=== PATIENT | female | born 1980 | race Caucasian/White ===

== ENCOUNTER 2023-02-13 10:09 | Outpatient (OUT) | payer OTHER, SELFPAY ==
[2023-02-13 10:43] LABS: Basophils Percent Auto 0.4 % (0.2-2.0); Eosinophils Absolute Auto 0.2 10^3/uL (0.0-0.7); Eosinophils Percent Auto 2.4 % (0.9-7.0); Hematocrit 37.6 % (36.0-48.0); Hemoglobin 11.4 g/dL (12.0-16.0); Immature Granulocytes Abs Auto 0.02 10^3/uL (0.00-0.03); Immature Granulocytes Pct Auto 0.3 % (0.0-0.5); Lymphocytes Absolute Auto 2.1 10^3/uL (1.2-3.8); Lymphocytes Percent Auto 29.7 % (20.5-60.0); Mean Corpuscular HGB Conc 30.3 g/dL (29.9-35.2); Mean Corpuscular Hemoglobin 24.4 pg (26.7-34.0); Mean Corpuscular Volume 80.3 fL (81.0-99.0); Mean Platelet Volume 9.8 fL (9.5-13.5); Monocytes Absolute Auto 0.8 10^3/uL (0.3-0.8); Monocytes Percent Auto 10.7 % (1.7-12.0); Neutrophils Absolute Auto 4.1 10^3/uL (1.4-6.5); Neutrophils Percent Auto 56.5 % (43.0-75.0); Platelet Count 295 10^3/uL (150-450); Red Blood Count 4.68 10^6/uL (4.20-5.40); Red Cell Distribution Width 15.3 % (11.0-15.0); White Blood Count 7.2 10^3/uL (4.0-11.0)
[2023-02-13 12:03] LABS: Alanine Aminotransferase 50 U/L (14-59); Albumin Level 4.1 g/dL (3.4-5.0); Alkaline Phosphatase 76 U/L (46-116); Anion Gap 13.9; Aspartate Amino Transferase 25 U/L (15-37); BUN Creatinine Ratio 14.6; Bilirubin Total 0.4 mg/dL (0.2-1.0); Carbon Dioxide 25.9 mmol/L (21.0-32.0); Chloride 104 mmol/L (98-107); Chol HDL Ratio 3.4; Cholesterol 230 mg/dL (<=200); Estimated GFR (African America >60 (>=60); Estimated GFR (Non-African Ame >60 (>=60); Free T3 2.72 pg/mL (2.18-3.98); Glucose 76 mg/dL (74-106); HDL Cholesterol 67 mg/dL (40-60); Potassium 3.8 mmol/L (3.5-5.1); Sodium 140 mmol/L (136-145); Total Protein 8.1 g/dL (6.4-8.2); Triglycerides 62 mg/dL (<=150); VLDL CHOLESTEROL 12.4 mg/dL
[2023-02-13 12:15] LABS: Estimated Average Glucose 94 mg/dL; Glycohemoglobin A1C 4.9 % (4.5-6.2)
[2023-02-14 05:07] LABS: Rheumatoid Factor (RF) <10.0 IU/mL (<14.0)
== END 2023-02-13 10:10 | disposition home or self-care (01) ==
LOC: LAB 10:14
PROVIDERS: PCP Family Medicine; Visit Provider Family Medicine
DX: Z00.00 Encounter for general adult medical examination without abnormal findings (principal)
CPT/HCPCS: 36415; 80053; 80061; 82306; 83036; 83525; 83540; 84436; 84443; 84481; 85025; 86430; 86431

== ENCOUNTER 2024-12-31 08:51 | Outpatient (OUT) | payer OTHER, SELFPAY ==
--- OUTSIDE RECORDS SUMMARY | 2024-12-31 08:57 | XMS_ITS | CCD ---
Author Organization [facility] CliniSyal Care Team Providers Care Meat Service Team Member Name Role Phone Vida Arita Primary Care Provider SANTOS TOMPKINS Consulting Unavailable SANTOS TOMPKINS Attending Unavailable SANTOS TOMPKINS Admitting Unavailable Vida Arita MD Primary Care Provider Vida Arita MD Primary Care Provider Vida Arita MD Primary Care Provider Lily Brush Unavailable PADMINI BANDA Referring Unavailable VIDA ARITA Primary Care Unavailable BEREKET Brush Attending Provider MD Vida Arita Primary Care Provider MD Padmini Banda Attending Provider MD Vida Arita Attending Provider MD Vida Arita Referring Provider MD Vida Arita Primary Care Provider MD Padmini Banda Attending Provider MD Vida Arita Attending Provider MD Vida Arita Referring Provider Vida Arita MD Primary Care Provider Vida Arita Primary Care Unavailable Padmini Banda Attending Unavailable Padmini Banda Admitting Unavailable VIDA ARITA Primary Care Unavailable HORACIO LOONEY Referring Unavailable BLESSING BLUE Referring Unavailable VIDA ARITA Primary Care Unavailable VIDA ARITA Referring Unavailable VIDA ARITA Primary Care Unavailable VIDA ARITA Primary Care Unavailable PADMINI BANDA Referring Unavailable Allergies Allergy Classification Reported Allergen(s) Allergy Type Date of Onset Reaction(s) Facility (8 sources) Penicillins Drug allergy (disorder) 4 Dizziness or Vertigo, Hives [facility] (1 source) Shellfish Drug allergy (disorder) 4 [facility] (9 sources) Shellfish Propensity to adverse reactions to drug 7 [employer] Work Phone: (5 sources) Penicillins Propensity to adverse reactions to drug 7 Dizziness or Vertigo, Hives [facility] (2 sources) Penicillin Drug Allergy dizziness [facility] Other (4 sources) Iodine; Translations: [iodine] Drug Allergy 4 Rash [facility] (1 source) Penicillins Drug allergy (disorder) [address] [place] [address] Repository Medications Current Medications Medication Drug Class(es) Dates Sig (Normalized) Sig (Original) ciprofloxacin 500 mg oral tablet (2 sources) Quinolone Antimicrobial take 1 tablet by mouth every twelve hours Cipro 500 MG 1 tablet Orally every 12 hrs Active levonorgestrel 0.818874 mg/hr intrauterine system (3 sources) Progestin, Progestin-containi ng Intrauterine Device Start: 04-15-2022 levonorgestrel (MIRENA) IUD 52 mg 1 each minocycline 100 mg oral capsule (3 sources) Tetracycline-class Drug Start: 04-04-2023 minocycline (MINOCIN;DYNACIN) 100 MG capsule 04/04/2023 Active phenazopyridine hydrochloride 200 mg oral tablet (4 sources) Start: 11-08-2022 take 1 tablet by mouth three times daily after mealtime as needed Phenazopyridine HCl 200 MG 1 tablet after meals Orally Three times a day prn urinary symptoms for 3 days Oct, Active take 2 tablets by mouth every ei ght hours AZO Urinary Pain Relief 95 MG 2 tablets after meals Orally Three times a day Active predniSONE 10 mg oral tablet (2 sources) take 1 tablet by mouth once daily predniSONE (DELTASONE) 10 MG tablet Take 1 tablet by mouth daily As directed Active spironolactone 50 mg oral tablet (9 sources) Aldosterone Antagonist Start: 022 spironolactone (ALDACTONE) 50 MG tablet 11/19/2021 Active sulfamethoxazole 800 mg / trimethoprim 160 mg oral tablet (2 sources) Dihydrofolate Reductase Inhibitor Antibacterial, Sulfonamide Antimicrobial Start: 023 take 1 tablet by mouth every twelve hours Sulfamethoxazole-Trim ethoprim 800-160 MG 1 tablet Orally Twice a day for 5 days Oct, Active Completed/Discontinued Medications Medication Drug Class(es) Dates Sig (Normalized) Sig (Original) gadoteridol (PROHANCE) injection 13 mL (1 source) Start: 08-05-2024 End: 08-05-2024 take 1 dose intravenously once 13 mL, IntraVENous, IMG ONCE PRN, 1 dose, Starting on Thu08/05/24 at 1108, Until Thu08/05/24 at 1109, Other Problems Active Problems Problem Classification Problem Date Documented Da te Episodic/Chronic Genitourinary symptoms and ill-defined conditions (1 source) Dysuria Episodic Other ear and sense organ disorders (3 sources) Sudden idiopathic hearing loss; Translations: [Sudden idiopathic hearing loss, right ear] 08-05-2024 Episodic Other ear and sense organ disorders (1 source) Sudden idiopathic hearing loss, right ear; Translations: [Sudden idiopathic hearing loss, right ear] Onset: 08-05-2024 Episodic Other female genital disorders (7 sources) Abnormal uterine bleeding; Translations: [Abnormal uterine and vaginal bleeding, unspecified] Onset: 03-05-2022 Chronic Other screening for suspected conditions (not mental disorders or infectious disease) (4 sources) Patient encounter status; Translations: [Encounter for screening mammogram for malignant neoplasm of breast] Onset: 09-29-2024 Episodic Other upper respiratory infections (1 source) Acute sinusitis, unspecified; Translations: [ACUTE SINUSITIS UNSPECIFIED] Onset: 06-17-2021 Episodic Unclassified (3 sources) CONTACT W/AND (SUSP) EXPOS COVID-19; Translations: [CONTACT W/AND (SUSP) EXPOS COVID-19] Onset: 06-17-2021 Urinary tract infections (1 source) Urinary tract infection, site not specified Episodic Past or Other Problems Problem Classification Problem Date Documented Date Episodic/Chronic Contraceptive and procreative management (3 sources) Intrauterine contraceptive device in situ; Translations: [Presence of (intrauterine) contraceptive device] Onset: 05-28-2022 05-28-2022 Episodic Nonmalignant breast conditions (5 sources) Breast lump; Translations: [Unspecified lump in the right breast, unspecified quadrant] Onset: 07-10-2023 07-10-2023 Episodic Unclassified (1 source) CONTACT W/AND (SUSP) EXPOS COVID-19; Translations: [CONTACT W/AND (SUSP) EXPOS COVID-19] Onset: 06-13-2021 Results Test Name Value Interpretation Reference Range Facility [facility] DIGITAL SCREEN ADRYAN Silvestre 10-04-2024 [facility] DIGITAL SCREEN BILATERAL EXAMINATION: SCREENING DIGITAL BILATERAL MAMMOGRAM WITH TOMOSYNTHESIS, 09/29/2024 TECHNIQUE: Screening mammography was performed with tomosynthesis including MLO and CC views of the bilateral breasts. Computer aided detection was used for the interpretation of this exam. COMPARISON: Multiple prior studies with the most recent bilateral mammogram dated 05/14/2023. HISTORY: Screening. Annual mammogram. FINDINGS: The breasts are extremely dense, which lowers the sensitivity of mammography. Right breast: No evidence of suspicious clusters of microcalcifications, dominant mass or architectural distortion. Left breast: No evidence of suspicious clusters of microcalcifications, dominant mass or architectural distortion. IMPRESSION: No mammographic evidence of malignancy. BI-RADS 2 BIRADS: BIRADS - CATEGORY 2 Benign Findings. Normal interval follow-up is recommended in 12 months. OVERALL ASSESSMENT - BENIGN A letter of notification will be sent to the patient regarding the results. [employer] recommends annual mammograms for women 40 years and older. Performing Facility: [facility] [place] [address] Interpreted by: Mallika Torres MD Signed by: Mallika Torres MD 10/04/24 Final result Normal [facility] MRI BRAIN W WO CONTRASTon MRI BRAIN W WO CONTRAST EXAMINATION: MRI OF THE INTERNAL AUDITORY CANALS WITH AND WITHOUT CONTRAST; MRI OF THE BRAIN WITHOUT AND WITH CONTRAST 08/05/2024 11:07 am TECHNIQUE: Multiplanar multisequence MRI of the internal auditory canals was performed with and without the administration of intravenous contrast.; Multiplanar multisequence MRI of the head/brain was performed without and with the administration of intravenous contrast. COMPARISON: None. HISTORY: ORDERING SYSTEM PROVIDED HISTORY: 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, unspecified hearing status on contralateral side TECHNOLOGIST PROVIDED HISTORY: STAT Creatinine as needed:->No FINDINGS: INTERNAL AUDITORY CANALS: No mass or abnormal enhancement within the cerebellopontine angle cisterns or internal auditory canals. No abnormal enhancement seen along of the facial or vestibulocochlear nerves. The inner ear structures appear unremarkable. The middle ear cavities are clear. The cisternal segments of the trigeminal nerves appear unremarkable. INTRACRANIAL STRUCTURES/VENTRICLES : There is no acute infarct. No mass effect or midline shift. No evidence of an acute intracranial hemorrhage. No abnormal extra-axial fluid collection. The ventricles and sulci are normal in size and configuration. The sellar/suprasellar regions appear unremarkable. The normal signal voids within the major intracranial vessels appear maintained. No abnormal focus of enhancement is seen within the brain. ORBITS: The visualized portion of the orbits demonstrate no acute abnormality. SINUSES: The visualized paranasal sinuses and mastoid air cells are well aerated. BONES/SOFT TISSUES: The bone marrow signal intensity appears normal. The soft tissues demonstrate no acute abnormality. IMPRESSION: 1. No acute intracranial abnormality. No acute infarct. 2. No abnormality seen within the cerebellopontine angle cisterns or internal auditory canals. Interpreted by: Ricky Chester MD Signed by: Ricky Chester MD 08/09/24 Final result Normal [facility] MRI IAC POSTERIOR FOSSA W WO CONTRASTon 08-09-2024 MRI IAC POSTERIOR FOSSA W WO CONTRAST EXAMINATION: MRI OF THE INTERNAL AUDITORY CANALS WITH AND WITHOUT CONTRAST; MRI OF THE BRAIN WITHOUT AND WITH CONTRAST 08/05/2024 11:07 am TECHNIQUE: Multiplanar multisequence MRI of the internal auditory canals was performed with and without the administration of intravenous contrast.; Multiplanar multisequence MRI of the head/brain was performed without and with the administration of intravenous contrast. COMPARISON: None. HISTORY: ORDERING SYSTEM PROVIDED HISTORY: 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, unspecified hearing status on contralateral side TECHNOLOGIST PROVIDED HISTORY: STAT Creatinine as needed:->No FINDINGS: INTERNAL AUDITORY CANALS: No mass or abnormal enhancement within the cerebellopontine angle cisterns or internal auditory canals. No abnormal enhancement seen along of the facial or vestibulocochlear nerves. The inner ear structures appear unremarkable. The middle ear cavities are clear. The cisternal segments of the trigeminal nerves appear unremarkable. INTRACRANIAL STRUCTURES/VENTRICLES : There is no acute infarct. No mass effect or midline shift. No evidence of an acute intracranial hemorrhage. No abnormal extra-axial fluid collection. The ventricles and sulci are normal in size and configuration. The sellar/suprasellar regions appear unremarkable. The normal signal voids within the major intracranial vessels appear maintained. No abnormal focus of enhancement is seen within the brain. ORBITS: The visualized portion of the orbits demonstrate no acute abnormality. SINUSES: The visualized paranasal sinuses and mastoid air cells are well aerated. BONES/SOFT TISSUES: The bone marrow signal intensity appears normal. The soft tissues demonstrate no acute abnormality. IMPRESSION: 1. No acute intracranial abnormality. No acute infarct. 2. No abnormality seen within the cerebellopontine angle cisterns or internal auditory canals. Interpreted by: Ricky Chester MD Signed by: Ricky Chester MD 08/09/24 Final result Normal [facility] Nicotine, Urineon 08-04-2024 3 [place] Cotinine, Ur <[address] [facility] Comment on above: Performed By: #### A NICTU #### [facility] [address] [place] [address] Centerpuncher: Kwaku Kaur MD Anabasine, Urine <5 Normal [facility] Comment on above: Performed By: #### A NICTU #### [facility] [address] [place] [address] Centerpuncher: Kwaku Kaur MD Cotinine, Urine <15 Normal [facility] Comment on above: Performed By: #### A NICTU #### [facility] [address] [place] [address] Centerpuncher: Kwaku Kaur MD Nicotine, Urine <15 Normal [facility] Comment on above: Result Comment: (NOT E) INTERPRETIVE INFORMATION: Nicotine and Metabolites, Urine, Quantitative Methodology: Quantitative Liquid Chromatography-Tandem Mass Spectrometry Positive cutoff: Nicotine 15 ng/mL Cotinine 15 ng/mL [id number] 50 ng/mL Anabasine 5 ng/mL For medical purposes only; not valid for forensic use. This test is designed to evaluate recent use of nicotine-containing products. Passive and active exposure cannot be discriminated definitively, although a cutoff of 100 ng/mL cotinine is frequently used for surgery qualification purposes. For smoking cessation programs or compliance testing, the absence of expected drug(s) and/or drug metabolite(s) may indicate non-compliance, inappropriate timing of specimen collection relative to drug administration, poor drug absorption, diluted/adulterated urine, or limitations of testing. The concentration value must be greater than or equal to the cutoff to be reported as positive. Anabasine is included as a biomarker of tobacco use, versus nicotine replacement. Interpretive questions should be directed to the laboratory. This test was developed and its performance characteristics determined by [facility]. It has not been cleared or approved by the [place] Food and Drug Administration. This test was performed in a CLIA certified laboratory and is intended for clinical purposes. Performed By: [facility] [address] [place] [id number] Selling Specialist: Wil Enriquez MD, PhD CLIA Number: [id number] Performed By: #### A NICTU #### [address] [address] Centerpuncher: Kwaku Kaur MD CBC with Auto Differentialon 02-26-2024 Basophils (Bld) [#/Vol] 0.03 10*3/uL [facility] Basophils/100 WBC (Bld) 0 % 0 - 2 % [facility] Eosinophils (Bld) [#/Vol] 0.07 10*3/uL [facility] Eosinophils/100 WBC (Bld) 1 % 1 - 4 % [facility] Erythrocyte distribution width (RBC) [Ratio] 14.0 % 11.8 - 14.4 % [facility] Hematocrit (Bld) [Volume fraction] 45.1 % 36.3 - 47.1 % [facility] Hemoglobin (Bld) [Mass/Vol] 14.3 g/dL 11.9 - 15.1 g/dL [facility] Immature granulocytes (Bld) [#/Vol] 0.03 10*3/uL [facility] Immature granulocytes/100 WBC (Bld) 0 % 0 [facility] Interpretation and review of laboratory results Abnormal [facility] Lymphocytes/100 WBC (Bld) 19 % Low 24 - 43 % [facility] Lymphocytes/100 WBC (Bld) 1.26 % [facility] MCH (RBC) [Entitic mass] 28.3 pg 25.2 - 33.5 pg [facility] MCHC (RBC) [Mass/Vol] 31.7 g/dL 28.4 - 34.8 g/dL [facility] MCV (RBC) [Entitic vol] 89.3 fL 82.6 - 102.9 fL [facility] Monocytes/100 WBC (Bld) 12 % 3 - 12 % [facility] Monocytes/100 WBC (Bld) 0.80 % [facility] Neutrophils/100 WBC (Bld) 68 % High 36 - 65 % [facility] Nucleated RBC/100 WBC (Bld) [Ratio] 0.0 % 0.0 per 100 WBC [facility] Platelet mean volume (Bld) [Entitic vol] 10.8 fL 8.1 - 13.5 fL [facility] Platelets (Bld) [#/Vol] 342 10*3/uL [facility] RBC (Bld) [#/Vol] 5.05 10*6/uL 3.95 - 5.1 1 m/uL [facility] Segmented neutrophils/100 WBC (Bld) 4.61 % [facility] WBC other (Bld) [#/Vol] 6.8 [facility] CBC with Diffon 02-26-2024 Abs. Basophil 0.03 k/uL Normal 0.00-0.20 [facility] Comment on above: Performed By: #### T SH, MG, CP, CDP, GLYHGB, FE, LIPR, FT3, T4, VD25 #### [facility] [place] [address] Centerpuncher: Dmitry Tan MD Abs.Imm.Granulocyte 0.03 k/uL Normal 0.00-0.30 [facility] Comment on above: Performed By: #### T SH, MG, CP, CDP, GLYHGB, FE, LIPR, FT3, T4, VD25 #### [place] [address] Centerpuncher: Dmitry Tan MD Abs.Neutrophil (Seg) 4.61 k/uL Normal 1.50-8.10 [facility] Comment on above: Performed By: #### T SH, MG, CP, CDP, GLYHGB, FE, LIPR, FT3, T4, VD25 #### [place] [address] Centerpuncher: Dmitry Tan MD Basophils/100 WBC (Bld) 0 % Normal 0-2 [facility] Comment on above: Performed By: #### T SH, MG, CP, CDP, GLYHGB, FE, LIPR, FT3, T4, VD25 #### [place] [address] Centerpuncher: Dmitry Tan MD Eosinophils (Bld) [#/Vol] 0.07 10*3/uL Normal 0.00-0.44 [facility] Comment on above: Performed By: #### T SH, MG, CP, CDP, GLYHGB, FE, LIPR, FT3, T4, VD25 #### [place] [address] Centerpuncher: Dmitry Tan MD Eosinophils/100 WBC (Bld) 1 % Normal 1-4 [facility] Comment on above: Performed By: #### T SH, MG, CP, CDP, GLYHGB, FE, LIPR, FT3, T4, VD25 #### [place] [address] Centerpuncher: Dmitry Tan MD Erythrocyte distribution width (RBC) [Ratio] 14.0 % Normal 11.8-14.4 [facility] Comment on above: Performed By: #### T SH, MG, CP, CDP, GLYHGB, FE, LIPR, FT3, T4, VD25 #### [address] [address] Centerpuncher: Dmitry Tan MD Hematocrit (Bld) [Volume fraction] 45.1 % Normal 36.3-47.1 [facility] Comment on above: Performed By: #### T SH, MG, CP, CDP, GLYHGB, FE, LIPR, FT3, T4, VD25 #### [address] [address] Centerpuncher: Dmitry Tan MD Hemoglobin (Bld) [Mass/Vol] 14.3 g/dL Normal 11.9-15.1 [facility] Comment on above: Performed By: #### T SH, MG, CP, CDP, GLYHGB, FE, LIPR, FT3, T4, VD25 #### [address] [address] Centerpuncher: Dmitry Tan MD Immature granulocytes/100 WBC (Bld) 0 % Normal 0 [facility] Comment on above: Performed By: #### T SH, MG, CP, CDP, GLYHGB, FE, LIPR, FT3, T4, VD25 #### [place] [address] Centerpuncher: Dmitry Tan MD Lymphocytes (Bld) [#/Vol] 1.26 10*3/uL Normal 1.10-3.70 [facility] Comment on above: Performed By: #### T SH, MG, CP, CDP, GLYHGB, FE, LIPR, FT3, T4, VD25 #### [address] [address] Centerpuncher: Dmitry Tan MD Lymphocytes/100 WBC (Bld) 19 % Low 24-43 [facility] Comment on above: Performed By: #### T SH, MG, CP, CDP, GLYHGB, FE, LIPR, FT3, T4, VD25 #### [address] [address] Centerpuncher: Dmitry Tan MD MCH (RBC) [Entitic mass] 28.3 pg Normal 25.2-33.5 [facility] Comment on above: Performed By: #### T SH, MG, CP, CDP, GLYHGB, FE, LIPR, FT3, T4, VD25 #### [address] [address] Centerpuncher: Dmitry Tan MD MCHC (RBC) [Mass/Vol] 31.7 g/dL Normal 28.4-34.8 [facility] Comment on above: Performed By: #### T SH, MG, CP, CDP, GLYHGB, FE, LIPR, FT3, T4, VD25 #### [address] [address] Centerpuncher: Dmitry Tan MD MCV (RBC) [Entitic vol] 89.3 fL Normal 82.6-102.9 [facility] Comment on above: Performed By: #### T SH, MG, CP, CDP, GLYHGB, FE, LIPR, FT3, T4, VD25 #### [address] [address] Centerpuncher: Dmitry Tan MD Monocytes (Bld) [#/Vol] 0.80 10*3/uL Normal 0.10-1.20 [facility] Comment on above: Performed By: #### T SH, MG, CP, CDP, GLYHGB, FE, LIPR, FT3, T4, VD25 #### [address] [address] Centerpuncher: Dmitry Tan MD Monocytes/100 WBC (Bld) 12 % Normal 3-12 [facility] Comment on above: Performed By: #### T SH, MG, CP, CDP, GLYHGB, FE, LIPR, FT3, T4, VD25 #### [address] [address] Centerpuncher: Dmitry Tan MD Neutrophil (Seg) 68 % High 36-65 [facility] Comment on above: Performed By: #### T SH, MG, CP, CDP, GLYHGB, FE, LIPR, FT3, T4, VD25 #### [address] [address] Centerpuncher: Dmitry Tan MD NRBC Automated 0.0 per 100 WBC Normal 0.0 [facility] Comment on above: Performed By: #### T SH, MG, CP, CDP, GLYHGB, FE, LIPR, FT3, T4, VD25 #### [address] [address] Centerpuncher: Dmitry Tan MD Platelet mean volume (Bld) [Entitic vol] 10.8 fL Normal 8.1-13.5 [facility] Comment on above: Performed By: #### T SH, MG, CP, CDP, GLYHGB, FE, LIPR, FT3, T4, VD25 #### [address] [address] Centerpuncher: Dmitry Tan MD Platelets (Bld) [#/Vol] 342 10*3/uL Normal 138-453 [facility] Comment on above: Performed By: #### T SH, MG, CP, CDP, GLYHGB, FE, LIPR, FT3, T4, VD25 #### [address] [address] Centerpuncher: Dmitry Tan MD RBC (Bld) [#/Vol] 5.05 10*6/uL Normal 3.95-5.11 [facility] Comment on above: Performed By: #### T SH, MG, CP, CDP, GLYHGB, FE, LIPR, FT3, T4, VD25 #### [address] [address] Centerpuncher: Dmitry Tan MD WBC (Bld) [#/Vol] 6.8 10*3/uL Normal 3.5-11.3 [facility] Comment on above: Performed By: #### T SH, MG, CP, CDP, GLYHGB, FE, LIPR, FT3, T4, VD25 #### [address] [address] Centerpuncher: Dmitry Tan MD Comp Metabolic Profon 2023 Albumin [Mass/Vol] 4.9 g/dL Normal 3.5-5.2 [facility] Comment on above: Performed By: #### T SH, MG, CP, CDP, GLYHGB, FE, LIPR, FT3, T4, VD25 #### [address] [address] Centerpuncher: Dmitry Tan MD Albumin/Glob Ratio 1.5 Normal 1.0-2.5 [facility] Comment on above: Performed By: #### T SH, MG, CP, CDP, GLYHGB, FE, LIPR, FT3, T4, VD25 #### [address] [address] Centerpuncher: Dmitry Tan MD Alkaline Phos 79 U/L Normal 35-104 [facility] Comment on above: Performed By: #### T SH, MG, CP, CDP, GLYHGB, FE, LIPR, FT3, T4, VD25 #### [address] [address] Centerpuncher: Dmitry Tan MD ALT [Catalytic activity/Vol] 32 U/L Normal 10-35 [facility] Comment on above: Performed By: #### T SH, MG, CP, CDP, GLYHGB, FE, LIPR, FT3, T4, VD25 #### [address] [address] Centerpuncher: Dmitry Tan MD Anion gap [Moles/Vol] 13 mmol/L Normal 9-16 [facility] Comment on above: Performed By: #### T SH, MG, CP, CDP, GLYHGB, FE, LIPR, FT3, T4, VD25 #### [place] [address] Centerpuncher: Dmitry Tan MD AST [Catalytic activity/Vol] 26 U/L Normal 10-35 [facility] Comment on above: Performed By: #### T SH, MG, CP, CDP, GLYHGB, FE, LIPR, FT3, T4, VD25 #### [place] [address] Centerpuncher: Dmitry Tan MD Bilirubin [Mass/Vol] 0.7 mg/dL Normal 0.0-1.2 [facility] Comment on above: Performed By: #### T SH, MG, CP, CDP, GLYHGB, FE, LIPR, FT3, T4, VD25 #### [place] [address] Centerpuncher: Dmitry Tan MD Calcium [Mass/Vol] 10.5 mg/dL High 8.6-10.4 [facility] Comment on above: Performed By: #### T SH, MG, CP, CDP, GLYHGB, FE, LIPR, FT3, T4, VD25 #### [place] [address] Centerpuncher: Dmitry Tan MD Chloride [Moles/Vol] 101 mmol/L Normal 98-107 [facility] Comment on above: Performed By: #### T SH, MG, CP, CDP, GLYHGB, FE, LIPR, FT3, T4, VD25 #### [address] [address] Centerpuncher: Dmitry Tan MD CO2 [Moles/Vol] 23 mmol/L Normal 20-31 [facility] Comment on above: Performed By: #### T SH, MG, CP, CDP, GLYHGB, FE, LIPR, FT3, T4, VD25 #### [address] [address] Centerpuncher: Dmitry Tan MD Creatinine [Mass/Vol] 1.0 mg/dL High 0.6-0.9 [facility] Comment on above: Performed By: #### T SH, MG, CP, CDP, GLYHGB, FE, LIPR, FT3, T4, VD25 #### [address] [address] Centerpuncher: Dmitry Tan MD GFR/1.73 sq M.predicted among non-blacks MDRD (S/P/Bld) [Vol rate/Area] 72 mL/min/{1.73_m2} Normal >60 [facility] Comment on above: Result Comment: These results are not intended for use in patients <18 years of age. eGFR results are calculated without a race factor using the 2020 CKD-EPI equation. Careful clinical correlation is recommended, particularly when comparing to results calculated using previous equations. The CKD-EPI equation is less accurate in patients with extremes of muscle mass, extra-renal metabolism of creatine, excessive creatine ingestion, or following therapy that affects renal tubular secretion. Performed By: #### T SH, MG, CP, CDP, GLYHGB, FE, LIPR, FT3, T4, VD25 #### [address] [address] Centerpuncher: Dmitry Tan MD Glucose [Mass/Vol] 81 mg/dL Normal 74-99 [facility] Comment on above: Performed By: #### T SH, MG, CP, CDP, GLYHGB, FE, LIPR, FT3, T4, VD25 #### [address] [address] Centerpuncher: Dmitry Tan MD Potassium [Moles/Vol] 4.3 mmol/L Normal 3.7-5.3 [facility] Comment on above: Performed By: #### T SH, MG, CP, CDP, GLYHGB, FE, LIPR, FT3, T4, VD25 #### [address] [address] Centerpuncher: Dmitry Tan MD Protein [Mass/Vol] 8.1 g/dL Normal 6.6-8.7 [facility] Comment on above: Performed By: #### T SH, MG, CP, CDP, GLYHGB, FE, LIPR, FT3, T4, VD25 #### [address] [address] Centerpuncher: Dmitry Tan MD Sodium [Moles/Vol] 137 mmol/L Normal 136-145 [facility] Comment on above: Performed By: #### T SH, MG, CP, CDP, GLYHGB, FE, LIPR, FT3, T4, VD25 #### [address] [address] Centerpuncher: Dmitry Tan MD Urea nitrogen [Mass/Vol] 18 mg/dL Normal 6-20 [facility] Comment on above: Performed By: #### T SH, MG, CP, CDP, GLYHGB, FE, LIPR, FT3, T4, VD25 #### [facility] [email or web address] [address] [place] [address] Centerpuncher: Dmitry Tan MD Comprehensive Metabolic Pane [facility] 02-26-2024 Albumin [Mass/Vol] 4.9 g/dL 3.5 - 5.2 g/dL [facility] Albumin/Globulin [Mass ratio] 1.5 {ratio} 1.0 - 2.5 [facility] ALP [Catalytic activity/Vol] 79 U/L 35 - 104 U/L [facility] ALT [Catalytic activity/Vol] 32 U/L 10 - 35 U/L [facility] Anion gap [Moles/Vol] 13 mmol/L 9 - 16 mmol/L [facility] AST [Catalytic activity/Vol] 26 U/L 10 - 35 U/L [facility] Bilirubin [Mass/Vol] 0.7 mg/dL 0.0 - 1 .2 mg/dL [facility] Calcium [Mass/Vol] 10.5 mg/dL High 8.6 - 10. 4 mg/dL [facility] Chloride [Moles/Vol] 101 mmol/L 98 - 10 7 mmol/L [facility] CO2 [Moles/Vol] 23 mmol/L 20 - 31 mmol/L [facility] Creatinine [Mass/Vol] 1.0 mg/dL High 0.6 - 0.9 mg/dL [facility] Est, Glom Filt Rate 72 - PINF [facility] Comment on above: These results are not intended for use in patients <18 years of age. eGFR results are calculated without a race factor using the 2020 CKD-EPI equation. Careful clinical correlation is recommended, particularly when comparing to results calculated using previous equations. The CKD-EPI equation is less accurate in patients with extremes of muscle mass, extra-renal metabolism of creatine, excessive creatine ingestion, or following therapy that affects renal tubular secretion. Glucose [Mass/Vol] 81 mg/dL 74 - 99 mg/dL [facility] Potassium [Moles/Vol] 4.3 mmol/L 3.7 - 5.3 mmol/L [facility] Protein [Mass/Vol] 8.1 g/dL 6.6 - 8.7 g/dL [facility] Sodium [Moles/Vol] 137 mmol/L 136 - 145 mmol/L [facility] Urea nitrogen [Mass/Vol] 18 mg/dL 6 - 20 mg/dL [facility] Hemoglobin A1Con 02-26-2024 HbA1c (Bld) [Mass fraction] 4.5 % Normal 4.0-6.0 [facility] Comment on above: Performed By: #### T SH, MG, CP, CDP, GLYHGB, FE, LIPR, FT3, T4, VD25 #### [employer] [address] [place] [address] Centerpuncher: Dmitry Tan MD Average glucose Estimated from glycated hemoglobin (Bld) [Mass/Vol] 82 mg/dL [facility] Comment on above: The ADA and AACC rec ommend providing the estimated average glucose result to permit better patient understanding of their HBA1c result. [facility] Glucose [Mass/Vol] 82 mg/dL Normal [facility] Comment on above: Result Comment: The ADA and AACC recommend providing the estimated average glucose result to permit better patient understanding of their HBA1c result. Performed By: #### T SH, MG, CP, CDP, GLYHGB, FE, LIPR, FT3, T4, VD25 #### [employer] [address] [place] [address] [phone] Centerpuncher: Dmitry Tan MD Iron 02-26-2024 Iron [Mass/Vol] 69 ug/dL 37 - 145 ug/dL [facility] Iron [Mass/Vol] 69 ug/dL Normal 37-145 [facility] Comment on above: Performed By: #### T SH, MG, CP, CDP, GLYHGB, FE, LIPR, FT3, T4, VD25 #### [employer] [address] [place] [address] [phone] Centerpuncher: Dmitry Tan MD Lipid Panelon 02-26-2024 Cholesterol [Mass/Vol] 183 mg/dL 0 - 1 99 mg/dL [facility] Comment on above: Cholesterol Guidelines: <200 Desirable 200-240 Borderline >240 Undesirable Cholesterol in HDL [Mass/Vol] 51 mg/dL 40 - PINF mg/dL [facility] [employer] Comment on above: HDL Guidelines: <40 Undesirable 40-59 Borderline >59 Desirable Cholesterol in LDL [Mass/Vol] 114 mg/dL High 0 - 100 mg/dL [facility] [employer] Comment on above: LDL Guidelines: <100 Desirable 100-129 Near to/above Desirable 130-159 Borderline >159 Undesirable Direct (measured) LDL and calculated LDL are not interchangeable tests. Cholesterol in VLDL [Mass/Vol] 18 mg/dL 1 - 30 mg/dL [facility] Cholesterol.total/Chol esterol in HDL [Mass ratio] 3.6 {ratio} [facility] Triglyceride [Mass/Vol] 91 mg/dL NINF - 150 mg/dL [facility] Comment on above: Triglyceride Guidelines: <150 Desirable 150-199 Borderline 200-499 High >499 Very high Based on AHA Guidelines for fasting triglyceride, January 2012. Lipid Profileon 02-26-2024 Cholesterol [Mass/Vol] 183 mg/dL Normal 0-199 [facility] Comment on above: Result Comment: Cholesterol Guidelines: <200 Desirable 200-240 Borderline >240 Undesirable Performed By: #### T SH, MG, CP, CDP, GLYHGB, FE, LIPR, FT3, T4, VD25 #### [place] [id number] Centerpuncher: Dmitry Tan MD Cholesterol in HDL [Mass/Vol] 51 mg/dL Normal >40 [facility] Comment on above: Result Comment: HDL Guidelines: <40 Undesirable 40-59 Borderline >59 Desirable Performed By: #### T SH, MG, CP, CDP, GLYHGB, FE, LIPR, FT3, T4, VD25 #### [place] [id number] Centerpuncher: Dmitry Tan MD Cholesterol in LDL [Mass/Vol] 114 mg/dL High 0-100 [facility] Comment on above: Result Comment: LDL Guidelines: <100 Desirable 100-129 Near to/above Desirable 130-159 Borderline >159 Undesirable Direct (measured) LDL and calculated LDL are not interchangeable tests. Performed By: #### T SH, MG, CP, CDP, GLYHGB, FE, LIPR, FT3, T4, VD25 #### [place] [phone] Centerpuncher: Dmitry Tan MD Cholesterol in VLDL [Mass/Vol] 18 mg/dL Normal 1-30 [facility] Comment on above: Performed By: #### T SH, MG, CP, CDP, GLYHGB, FE, LIPR, FT3, T4, VD25 #### [facility] [address] [place] [address] [phone] Centerpuncher: Dmitry Tan MD Cholesterol.total/Chol esterol in HDL [Mass ratio] 3.6 {ratio} Normal [facility] Comment on above: Performed By: #### T SH, MG, CP, CDP, GLYHGB, FE, LIPR, FT3, T4, VD25 #### [facility] [address] [place] [address] [phone] Centerpuncher: Dmitry Tan MD Triglyceride [Mass/Vol] 91 mg/dL Normal <150 [facility] Comment on above: Result Comment: Triglyceride Guidelines: <150 Desirable 150-199 Borderline 200-499 High >499 Very high Based on AHA Guidelines for fasting triglyceride, January 2012. Performed By: #### T SH, MG, CP, CDP, GLYHGB, FE, LIPR, FT3, T4, VD25 #### [facility] [address] [place] [address] Centerpuncher: Dmitry Tan MD Magnesiumon 02-26-2024 Magnesium [Mass/Vol] 2.3 mg/dL 1.6 - 2 .6 mg/dL [facility] Magnesium [Mass/Vol] 2.3 mg/dL Normal 1.6-2.6 [facility] Comment on above: Performed By: #### T SH, MG, CP, CDP, GLYHGB, FE, LIPR, FT3, T4, VD25 ####[facility] [employer] [address] [place] [address] [phone] Lab Director: Dmitry Tan MD No Panel Informationon 02-25 Interpretation and review of laboratory results Abnormal [facility] T3, Freeon 02-26-2024 Free T3 [Mass/Vol] 2.90 pg/mL 2.00 - 4. 40 pg/mL [facility] Free T3 [Mass/Vol] 2.90 pg/mL Normal 2.00-4.40 [facility] Comment on above: Performed By: #### T SH, MG, CP, CDP, GLYHGB, FE, LIPR, FT3, T4, VD25 #### [employer] [address] [place], [place] [phone] Centerpuncher: Dmitry Tan MD T4on 02-26-2024 T4 [Mass/Vol] 9.6 ug/dL 4.5 - 11.7 ug/dL [facility] TSHon 02-26-2024 TSH Qn 1.35 m[IU]/L [facility] Thyroid Stim. Horm.on 2023 Thyroid Stim. Horm. 1.35 uIU/mL Normal 0.27-4.20 [facility] Comment on above: Performed By: #### T SH, MG, CP, CDP, GLYHGB, FE, LIPR, FT3, T4, VD25 ####[employer] [place], [place] [phone] Lab Director: Dmitry Tan MD Thyroxine T4on 02-26-2024 T4 [Mass/Vol] 9.6 ug/dL Normal 4.5-11.7 [facility] Comment on above: Performed By: #### T SH, MG, CP, CDP, GLYHGB, FE, LIPR, FT3, T4, VD25 ####[employer] [place], [place] [phone] Lab Director: Dmitry Tan MD Vitamin D 25 Hydroxyon 02-25 25-hydroxyvitamin D3 [Mass/Vol] 62.5 ng/mL 30.0 - 100.0 ng/mL [facility] Comment on above: Reference Range: Vitamin D status Range Deficiency <20 ng/mL Mild Deficiency 20-30 ng/mL Sufficiency 30-100 ng/mL Toxicity >100 ng/mL Vitamin D 25 OHon 02-26-2024 Vitamin D 25 OH 62.5 ng/mL Normal 30.0-100.0 [facility] Comment on above: Result Comment: Reference Range: Vitamin D status Range Deficiency <20 ng/mL Mild Deficiency 20-30 ng/mL Sufficiency 30-100 ng/mL Toxicity >100 ng/mL Performed By: #### T SH, MG, CP, CDP, GLYHGB, FE, LIPR, FT3, T4, VD25 ####[facility] [place] [address] Lab Director: Dmitry Tan MD [facility] 07-10-2023 L Specimen: Received: 07/10/23 Status: DEACON Re Num: [id number] Spec Type: Surgical Subm Dr: Dafne Cordero MD Tissues: A BREAST CORE NO CALCS (RT BREAST TISSUE) Procedures: HE/2, Gross/Micro L4 Age/ Patient Sex Location Account Attending Physician Tabitha Lemons 43/F [place] [id number] Padmini Banda MD SPEC NUM: [id number] RECD: 07/10/23 STATUS: DEACON [facility] NUM: [id number] GILMER: 07/10/[address]: Dafne Cordero MD ENTERED: 07/10/[address] [facility] [address]: Padmini Banda MD SPEC TYPE: Surgical DEPT: S ORDERED: HE/2, Gross/Micro L4 ORDERED: HE/2, Gross/Micro L4 Pathological Diagnosis Mass, Right breast, Excision: Mature Fibrofatty Tissue, suggestive of Lipoma. Clinical Information Right breast lesion 11?12:00, 10 cm from nipple Gross Description Received in formalin labeled with the patient's name, date of and right breast is a 2.5 x 1.8 x 0.3 cm aggregate of cores of fibrofatty breast tissue. Entirely submitted in one cassette labeled A1. Time of excision: 11:28 AM 07/10/2023, time in formalin: 11:31 AM 07/10/2023, time out of formalin: 6 PM 07/12/2023. Cold Ischemia and Fixation Time meets the requirements specified in the latest version of the ASCO/CAP guidelines: Yes. Cold Ischemic Time: 0.05 Formalin Fixation Time: [id number] -------- Specimen: [id number] Received: 07/10/23 Status: DEACON Hagen Num: [id number] Spec Type: Surgical Subm Dr: Dafne Cordero MD Tissues: A BREAST CORE NO CALCS (RT BREAST TISSUE) Procedures: /2, Diego/Katie L4 -------- Patient: Tabitha Lemons [id number] (Continued) -------- Specimen: [id number] Received: 07/10/23 (Continued) Signed (signature on file) Lyssa Thorne MD 07/13/23 1701 -------- Specimen: Received: 07/10/23 Status: DEACON Hagen Num: [id number] Spec Type: Surgical Subm Dr: Dafne Cordero MD Tissues: A BREAST CORE NO CALCS (RT BREAST TISSUE) Procedures: HE/Xenia, Diego/Katie L4 -------- Patient: CristoTabitha Rock [id number] (Continued) -------- Specimen: Received: 07/10/23 (Continued) CPT Codes 48619 -------- -------- Specimen: Received: 07/10/23 Status: DEACON Hagen Num: [id number] Spec Type: Surgical Subm Dr: Dafne Cordero MD Tissues: A BREAST CORE NO CALCS (RT BREAST TISSUE) Procedures: HE/2, Gross/Micro L4 -------- Patient: Tabitha Lemons [id number] (Continued) -------- Signed (signature on file) Lyssa Thorne MD 07/13/23 1701 Normal [facility] US breast ndl core biopsy RT on 07-10-2023 [place] [address] Ultrasound Report Signed with Katharina Patient: Tabitha Lemons MR#: [id number] : 1980 Acct:[id number] Age/Sex: 43 / F ADM Date: 07/10/23 Loc: [facility] Room: Type: [facility] Attending Dr: Padmini Banda MD Ordering Provider: Padmini Banda MD Date of Service: 07/10/23 US/US breast ndl core biopsy RT: RT BREAST MASS Copies to: Padmini Banda MD ADDENDUM 1 The patient's pathology results for the right breast biopsy show mature fibrofatty tissue suggesting lipoma. This is concordant with the imaging appearance. Impression dictated by: Dafne Cordero M.D.07/14/2023 9:01 AM Dictation Location: [place] [address] Addendum Dictated By: MD Dafne Cordero Addendum Signed By: 07/14/23900 Addendum Cosigned By: DD/ /06/900 TD/TT: 07/14/2306/06/900 RIGHT BREAST ULTRASOUND-GUIDED BIOPSY WITH VACUUM ASSISTANCE CLINICAL DATA: Isoechoic lump at the right axillary tail Patient's previous imaging from May 2023 was reviewed. The procedure was discussed with patient was obtained. Ultrasound survey at the axillary tail shows a superficial isoechoic nodular area at the site of palpable concern measuring just over 3 cm in size. Appearance is suggestive of a lipoma. Following sterile preparation and local anesthesia with lidocaine, a 12-gauge vacuum-assisted needle was advanced into the area under direct ultrasound visualization. Core tissue samples were obtained. Before the needle was removed, a biopsy marking clip was placed. During removal of the needle, a small amount of fluid was noted in the area suggesting bleeding. There was also some bleeding through the incision. Pressure was held for several minutes to achieve hemostasis. Patient did develop a hematoma at that site on follow-up ultrasound imaging measuring approximately 2.7 cm in greatest dimension. There were no other immediate complications. No postbiopsy mammogram was obtained. US/US breast ndl core biopsy RT IMPRESSION: STATUS POST ULTRASOUND-GUIDED SAMPLING OF A SUSPECTED RIGHT AXILLARY TAIL LIPOMA. POSTPROCEDURE HEMATOMA. Impression dictated by: Dafne Cordero M.D.07/10/2023 11:58 AM Dictation Location: [facility] Tech: Gaby Campbell Transcribed By: [facility] 07/10/23 1158 Dictated By: Dafne Cordero MD 07/10/23 1113 Signed By: 07/10/[address] [facility] Urinalysis - AUTOMATEDon Appearance (U) CLEAR [employer] Other Bilirubin Ql (U) Negative [employer] Other Color (U) LIGHT YELLOW [employer] Other Glucose Ql (U) Negative [employer] Other Hemoglobin Ql (U) TRACE-INTACT [employer] Other Ketones Ql (U) Negative [employer] Other Leukocyte esterase Test strip Ql (U) SMALL [employer] Other Nitrite Ql (U) Negative [employer] Other pH (U) 7.0 [pH] [employer] Other Protein Ql (U) Negative [employer] Other Specific gravity (U) [Rel density] 1.020 [employer] Other Urobilinogen (U) [Mass/Vol] 0.2 mg/dL [employer] Other Urinalysis - AUTOMATED No rt [employer] Other [facility] DIGITAL DIAGNOSTIC UNILATERAL RIGHTon 03-31-2022 Radiology Study observation (narrative) JAKE [employer] Work Phone: No Panel Informationon 03-31 Previously noted asymmetry in the retroareolar right breast is most likely related to dense fibroglandular tissue and summation artifact. No suspicious findings on diagnostic mammogram or limited right breast ultrasound. BI-RADS 2 BIRADS: BIRADS - CATEGORY 2 Benign Findings. Normal interval follow-up is recommended in 12 months. OVERALL ASSESSMENT - BENIGN A letter of notification will be sent to the patient regarding the results. The [employer] recommends annual mammograms for women 40 years [address] [facility] RIS CONSOLIDATED EXAMINATION: DIAGNOSTIC DIGITAL RIGHT BREAST MAMMOGRAM WITH TOMOSYNTHESIS; TARGETED ULTRASOUND OF THE RIGHT BREAST, 03/31/2022 2:49 pm TECHNIQUE: Diagnostic mammography of the right breast was performed with tomosynthesis. 2D standard and 3D tomosynthesis combination imaging performed through the right breast. Computer aided detection was utilized in the interpretation of this exam.; Targeted ultrasound of the right breast was performed. Views: CC spot compression view of the right breast. True lateral view of the right breast. 3D tomosynthesis was performed. COMPARISON: Baseline mammogram dated 02/14/2022. HISTORY: ORDERING SYSTEM PROVIDED HISTORY: Abnormality of right breast on screening mammogram TECHNOLOGIST PROVIDED HISTORY: Is the patient ?->No FINDINGS: Mammogram: Density: Extremely dense, which limits the sensitivity of mammography. The asymmetry in the retroareolar right breast partially dissipates on spot compression view. No discrete mass, suspicious architectural distortion, or calcification. Limited right breast ultrasound: Targeted ultrasound imaging was performed in the retroareolar right breast. There is extremely dense fibroglandular tissue. No solid or cystic mass. Unremarkable sonographic appearance of the right nipple. [facility] CONSOLIDATED No Panel InformationOrdered By: Michelle Groves on 03-31-2022 [employer] Phone: US BREAST LIMITED RIGHTon Radiology Study observation (narrative) [employer] Phone: [facility] DIGITAL SCREEN BILA TERALon 02-14-2022 1. Right breast: Small asymmetry in the retroareolar right breast, seen on CC view. Diagnostic mammogram and possible ultrasound are recommended. 2. Left breast: No mammographic findings of malignancy. This breast can continue to be followed with annual screening mammogram. BI-RADS 0 BIRADS: BIRADS - CATEGORY 0 Incomplete: Needs Additional Imaging Evaluation OVERALL ASSESSMENT - INCOMPLETE:NEED ADDITIONAL IMAGING EVALUATION. [facility] CONSOLIDATED EXAMINATION: SCREENING DIGITAL BILATERAL MAMMOGRAM WITH TOMOSYNTHESIS, 02/14/2022 TECHNIQUE: Screening mammography was performed with tomosynthesis including MLO and CC views of the bilateral breasts. Computer aided detection was used for the interpretation of this exam. COMPARISON: No prior. Baseline mammogram. HISTORY: Screening. FINDINGS: The breasts are extremely dense, which lowers the sensitivity of mammography. There is a small asymmetry in the retroareolar right breast, seen on CC view. No suspicious mass, architectural distortion, or calcification in the left breast. [facility] CONSOLIDATED Radiology Study observation (narrative) [employer] Phone: [facility] DIGITAL SCREEN BILA TERALOrdered By: Michelle Groves on 02-14-2022 [employer] Phone: Estradiolon 01-18-2022 Estradiol 53.5 pg/mL 27 - 314 pg/mL [employer] Comment on above: FEMALES: Normally menstruating Luteal phase 33-298 Follicular phase 27-156 Midcycle phase 48-314 Postmenopausal (untreated) 5-50 Fulvestrant treatment will show an increased estradiol concentration with this methodology. Alternate methodologies are available upon request. Follicle Stimulating Hormone on 01-18-2022 FSH 3.6 [employer] Comment on above: Reference Range: Male: 1.5-12.4 Ovulating Female: Follicular Phase 3.5-12.5 Ovulation Phase 4.7-21.5 Luteal Phase 1.7-7.7 Postmenopausal Female: 25.8-134.8 Lipid Panelon 01-18-2022 Cholesterol [Mass/Vol] 219 mg/dL High NINF - 200 mg/dL [facility] Comment on above: Cholesterol Guidelines: <200 Desirable 200-240 Borderline >240 Undesirable Cholesterol in HDL [Mass/Vol] 67 mg/dL 40 - PINF mg/dL [employer] Comment on above: HDL Guidelines: <40 Undesirable 40-59 Borderline >59 Desirable Cholesterol in LDL [Mass/Vol] 136 mg/dL High 0 - 130 mg/dL [facility] Comment on above: LDL Guidelines: <100 Desirable 100-129 Near to/above Desirable 130-159 Borderline >159 Undesirable Direct (measured) LDL and calculated LDL are not interchangeable tests. Cholesterol.total/Chol esterol in HDL [Mass ratio] 3.3 {ratio} NINF - 5 [employer] Interpretation and review of laboratory results Abnormal [facility] Triglyceride [Mass/Vol] 78 mg/dL NINF - 150 mg/dL [employer] Comment on above: Triglyceride Guidelines: <150 Desirable 150-199 Borderline 200-499 High >499 Very high Based on AHA Guidelines for fasting triglyceride, January 2012. [employer] Luteinizing Hormoneon 2021 LH 6.1 [employer] Comment on above: Reference Range: Male: 1.7-8.6 Ovulating Female: Follicular Phase 2.4-12.6 Ovulation Phase 14.0-95.6 Luteal Phase 1.0-11.4 Postmenopausal Female: 7.7-58.5 No Panel Informationon 01-18 [facility] TSH with Reflexon 01-18-2022 TSH Qn 3.08 m[IU]/L [facility] Testosterone, Freeon 022 Interpretation and review of laboratory results Abnormal [facility] Sex Hormone Binding 93 nmol/L 30 - 135 nmol/L [facility] Testosterone [Mass/Vol] 8 ng/dL Low 20 - 70 ng/dL [facility] Testosterone, Free pg/mL Low 1.3 - 9.2 pg/mL [facility] Comment on above: The concentration of free testosterone is derived from a mathematical expression based on the constant for the binding of testosterone to albumin and/or sex hormone binding globulin. [facility] Hemoglobin A1Con 01-17-2022 Glucose [Mass/Vol] 91 mg/dL [facility] Comment on above: The ADA and AACC rec ommend providing the estimated average glucose result to permit better patient understanding of their HBA1c result. HbA1c (Bld) [Mass fraction] 4.8 % 4 - 6 % [facility] Prolactinon 01-17-2022 Prolactin 13.76 ng/mL 4.79 - 23.3 ng/mL [facility] Comment on above: The presence of macr oprolactin may cause interference in female patients with various endocrinological diseases or during . [facility] No Panel Informationon 01-13 1. Myometrial appearance that can be seen with adenomyosis. 2. Normal sonographic appearance of the ovaries. [facility] RIS CONSOLIDATED EXAMINATION: PELVIC ULTRASOUND 01/13/2022 3:34 pm TECHNIQUE: Transabdominal and transvaginal pelvic ultrasound using B-mode/badillo scaled imaging and color flow Doppler was obtained. COMPARISON: None HISTORY: ORDERING SYSTEM PROVIDED HISTORY: Abnormal uterine bleeding (AUB) TECHNOLOGIST PROVIDED HISTORY: AUB Reason for Exam: pt has been just having discharge for periods...no actual bleeding. FINDINGS: Uterus: 10.2 cm x 5.6 cm x 4.4 cm Endometrial stripe: 0.5 cm Right ovary: 3.1 cm x 2.7 cm x 2.5 cm Left ovary: 2.2 cm x 2.5 cm x 1 4 cm UTERUS: Anteverted with appropriate size. Caesarean section scar in the anterior lower segment. Heterogeneous myometrium with indistinct junctional zone margins, appearing most prominent in the anterior body. No discrete myometrial lesion. Partial distention of the cervical canal by fluid, potentially physiologic. Nabothian cysts. ENDOMETRIAL STRIPE: Normal size and appearance. RIGHT OVARY: Normal size. Normal degree of vascularity. 2.3 cm simple follicle (O-RADS 1). LEFT OVARY: Normal size. Normal degree of vascularity. 1.1 cm simple follicle (O-RADS 1) FREE FLUID: None visualized. [facility] Spencer Francois MD - 01/13/2022 EXAMINATION: PELVIC ULTRASOUND 01/13/2022 3:34 pm TECHNIQUE: Transabdominal and transvaginal pelvic ultrasound using B-mode/badillo scaled imaging and color flow Doppler was obtained. COMPARISON: None HISTORY: ORDERING SYSTEM PROVIDED HISTORY: Abnormal uterine bleeding (AUB) TECHNOLOGIST PROVIDED HISTORY: AUB Reason for Exam: pt has been just having discharge for periods...no actual bleeding. FINDINGS: Uterus: 10.2 cm x 5.6 cm x 4.4 cm Endometrial stripe: 0.5 cm Right ovary: 3.1 cm x 2.7 cm x 2.5 cm Left ovary: 2.2 cm x 2.5 cm x 1 4 cm UTERUS: Anteverted with appropriate size. Caesarean section scar in the anterior lower segment. Heterogeneous myometrium with indistinct junctional zone margins, appearing most prominent in the anterior body. No discrete myometrial lesion. Partial distention of the cervical canal by fluid, potentially physiologic. Nabothian cysts. ENDOMETRIAL STRIPE: Normal size and appearance. RIGHT OVARY: Normal size. Normal degree of vascularity. 2.3 cm simple follicle (O-RADS 1). LEFT OVARY: Normal size. Normal degree of vascularity. 1.1 cm simple follicle (O-RADS 1) FREE FLUID: None visualized. IMPRESSION: 1. Myometrial appearance that can be seen with adenomyosis. 2. Normal sonographic appearance of the ovaries. [facility] Phone: Radiology Study observation (narrative) [facility] Phone: No Panel InformationOrdered By: Spencer Maddox on 01-13-2022 JAKE GRISSOM [facility] [employer] Work Phone: HPV DNA High Riskon 12-06-19 22 HPV Interp Normal [facility] Comment on above: Result Comment: This test amplifies and detects DNA of 14 high-risk HPV types associated with cervical cancer and its precursor lesions (HPV types 16,18, 31, 33, 35, 39, 45, 51, 52, 56, 58, 59, 66, and 68). Sensitivity may be affected by specimen collection methods, stage of infection, and the presence of interfering substances. Results should be interpreted in conjunction with other available laboratory and clinical data. A negative high-risk HPV result does not exclude the possibility of future cytologic HSIL or underlying CIN2-3 or cancer. This test is intended for medical purposes only and is not valid for the evaluation of suspected sexual abuse or for other forensic purposes. Performed By: #### H PVH #### [facility] [email or web address] [address] [place] [address] Center[employer]cher: Dmitry Tan MD HPV Type 16 Not detected Normal [facility] Comment on above: Performed By: #### H PVH #### [address] [address] Centerpuncher: Dmitry Tan MD HPV Type 18 Not detected [facility] Comment on above: Performed By: #### H PVH #### [address] [address] Centerpuncher: Dmitry Tan MD Other High Risk HPV Not detected Normal [facility] Comment on above: Performed By: #### H PVH #### [facility] [email or web address] [address] [place] [address] Centerpuncher: Dmitry Tan MD HPV DNA High Riskon 12-05-19 22 Source .GENITAL - NOT SPECIFIED Normal [facility] Comment on above: Performed By: #### H PVH #### [facility] [address] [place] [address], [place] [address] Centerpuncher: Dmitry Tan MD HPV Sample .THIN PREP Normal [facility] Comment on above: Performed By: #### H [facility] #### [facility] [address] [place] [address] Centerpuncher: Dmitry Tan MD Cytologyon 12-02-2021 Cytology (NOTE) INTERPRETATION Cervical material, (ThinPrep vial, Imaging-assisted review): Specimen Adequacy: Satisfactory for evaluation. -Endocervical/transfo rmation zone component is absent. Descriptive Diagnosis: Negative for intraepithelial lesion or malignancy. Music Professor: KIZZY RENEE(ASCP) Electronically Signed Out /12/10/2021 Procedure/Addendum HPV Procedure Report Date Ordered: 12/04/2021 Status: Signed Out Date Complete: 12/05/2021 By: System Interface Date Reported: 12/05/2021 Sample: HPV Type 16 Result: Not Detected Ref Range: (Not Detected) Sample: HPV Type 18 Result: Not Detected Ref Range: (Not Detected) Sample: Other High Risk HPV Result: Not Detected Ref Range: (Not Detected) Sample: HPV Interp Result: Ref Range: (Not Detected) This test amplifies and detects DNA of 14 high-risk HPV types associated with cervical cancer and its precursor lesions (HPV types 16,18, 31, 33, 35, 39, 45, 51, 52, 56, 58, 59, 66, and 68). Sensitivity may be affected by specimen collection methods, stage of infection, and the presence of interfering substances. Results should be interpreted in conjunction with other available laboratory and clinical data. A negative high-risk HPV result does not exclude the possibility of future cytologic HSIL or underlying CIN2-3 or cancer. This test is intended for medical purposes only and is not valid for the evaluation of suspected sexual abuse or for other forensic purposes. 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 [place], [place] [address] Normal [facility] Comment on above: Performed By: #### P PPVP #### [id number] [place], [place] [id number] Centerpuncher: Dmitry Tan MD Covid-19 PCR ([facility])on SARS-CoV-2 (COVID-19) RNA CHAVA+probe Ql (Unsp spec) Not detected Normal NOT DETECTED [facility] Comment on above: Result Comment: This test is not yet approved or cleared by the [place] FDA. When there are no FDA-approved or cleared tests available, and other criteria are met, FDA can make tests available under an emergency access mechanism called an Emergency Use Authorization (EUA). The EUA for this test is supported by the [place] of Health and Human Service's (HHS's) declaration that circumstances exist to justify the emergency use of in vitro diagnostics for the detection and/or diagnosis of the virus that causes COVID-19. This EUA will remain in effect (meaning this test can be used) for the duration of the COVID-19 declaration justifying emergency of IVDs, unless it is terminated or revoked by FDA (after which the test may no longer be used). When diagnostic testing is negative, the possibility of a false negative should be considered in the context of a patient's recent exposures and the presence of clinical signs and symptoms consistent with SARS-CoV-2. Performed By: #### C VDTBH #### [facility] [address] [place], [place] [address] Dr. Grant Ngo CBC Auto Differentialon 07-12 Basophils (Bld) [#/Vol] 0.03 10*3/uL [place], [place] Basophils/100 WBC (Bld) 0 % 0 - 2 % [place] Differential Type NOT REPORTED [place] Eosinophils (Bld) [#/Vol] 0.35 10*3/uL [place] Eosinophils/100 WBC (Bld) 5 % High 1 - 4 % [place] Erythrocyte distribution width (RBC) [Ratio] 13.2 % 11.8 - 14.4 % [place] Hematocrit (Bld) [Volume fraction] 36.1 % Low 36.3 - 47.1 % [place] Hemoglobin (Bld) [Mass/Vol] 11.3 g/dL Low 11.9 - 15.1 g/dL [place] Immature granulocytes (Bld) [#/Vol] 0 % 0 [place] Immature granulocytes (Bld) [#/Vol] 10*3/uL [place] Interpretation and review of laboratory results Abnormal [place] Lymphocytes (Bld) [#/Vol] 2.18 10*3/uL [place] Lymphocytes/100 WBC (Bld) 32 % 24 - 43 % [place] MCH (RBC) [Entitic mass] 29.1 pg 25.2 - 33.5 pg [place] MCHC (RBC) [Mass/Vol] 31.3 g/dL 28.4 - 34.8 g/dL [place] MCV (RBC) [Entitic vol] 93.0 fL 82.6 - 102.9 fL [place] Monocytes (Bld) [#/Vol] 0.70 10*3/uL [place] Monocytes/100 WBC (Bld) 10 % 3 - 12 % [place] Platelet mean volume (Bld) [Entitic vol] 11.6 fL 8.1 - 13.5 fL [place] Platelets (Bld) [#/Vol] 260 10*3/uL [place] Platelets (Bld) [#/Vol] NOT REPORTED [place] RBC (Bld) [#/Vol] 3.88 10*6/uL Low 3.95 - 5.1 1 m/uL [place] RBC morphology finding Nom (Bld) NOT REPORTED [place] Segmented neutrophils/100 WBC (Bld) 53 % 36 - 65 % [place] Segs Absolute 3.61 [place] WBC (Bld) [#/Vol] 6.9 10*3/uL [place] WBC (Bld) [#/Vol] 0.0 10*3/uL 0.0 per 10 0 WBC [place] WBC Morphology NOT REPORTED [place] Vital Signs Date Time Vital Sign Value Performing Clinician Facility 07-10-2023 11:10-0400 Body temperature 98.2 [degF] MD Vida Arita Work Phone: [facility] 07-10-2023 11:10-0400 Diastolic blood pressure 69 mm[Hg] MD Vida Arita Work Phone: [facility] 07-10-2023 11:10-0400 Heart rate 85 /min MD Vida Arita Work Phone: [facility] 07-10-2023 11:10-0400 Respiratory rate 18 /min MD Vida Arita Work Phone: [facility] 07-10-2023 11:10-0400 SaO2% (BldA) [Mass fraction] 99 % MD Vida Arita Work Phone: [facility] 07-10-2023 11:10-0400 Systolic blood pressure 113 mm[Hg] MD Vida Arita Work Phone: [facility] 05-29-2023 14:30-0500 Diastolic blood pressure 65 mm[Hg] MD Vida Arita Work Phone: [facility] 05-29-2023 14:30-0500 Heart rate 75 /min MD Vida Arita Work Phone: [facility] 05-29-2023 14:30-0500 Systolic blood pressure 105 mm[Hg] MD Vida Arita Work Phone: [facility] 11-08-2022 11:30-0400 Body height 162.56 cm Lily Brush Other [facility] Other 11-08-2022 11:30-0400 Body mass index (BMI) [Ratio] 25.26 kg/m2 Lily Brush Other [facility] Other 11-08-2022 11:30-0400 Body temperature 96.4 [degF] Lily Trudi Other [facility] Other 11-08-2022 11:30-0400 Body weight 66.77 kg Lily Brush Other [facility] Other 11-08-2022 11:30-0400 Diastolic blood pressure 80 mm[Hg] Lily Brush Other [facility] Other 11-08-2022 11:30-0400 Respiratory rate 16 /min Lily Brush Other [facility] Other 11-08-2022 11:30-0400 SaO2% (BldA) [Mass fraction] 100 % Lilyjigna Brush Other [facility] Other 11-08-2022 11:30-0400 Systolic blood pressure 115 mm[Hg] Lily Brush Other [facility] Other Encounters Encounter Date Encounter Type Care Provider Facility Start: 09-29-2024 End: 10-01-2024 ambulatory [facility] Start: 08-05-2024 End: 08-07-2024 ambulatory [facility] Start: 08-05-2024 End: 08-07-2024 Subsequent hospital visit by physician Igor [facility] Comment on above: Sudden idiopathic he aring loss of right ear, unspecified hearing status on contralateral side Start: 07-29-2024 End: 07-29-2024 ambulatory [facility] Start: 07-29-2024 Encounter for other preprocedural examination [facility] Start: 07-29-2024 End: 07-29-2024 Patient encounter status Vida Arita MD Work Phone: [facility] Start: 07-29-2024 End: 07-29-2024 Subsequent hospital visit by physician Vida Arita MD Work Phone: [facility] Comment on above: Pre-op testing Start: 02-26-2024 End: 02-26-2024 ambulatory [facility] Start: 02-26-2024 End: 02-26-2024 Encounter for general adult medical examination without abnormal findings [facility] Start: 02-26-2024 End: 02-26-2024 Subsequent hospital visit by physician Vida Arita MD Work Phone: [facility] Start: 07-10-2023 End: 07-10-2023 Admission to same day surgery center MD Vida Arita Work Phone: [facility] for Breast Car Start: 07-10-2023 End: 07-10-2023 ambulatory MD Vida Arita Work Phone: [facility] Work Phone: Start: 05-29-2023 Registered Recurring MD Daphney Arita Work Phone: [facility]Infusion Therapy - O/P Work Phone: Start: 05-29-2023 End: 05-29-2023 ambulatory MD Vida Arita Work Phone: [facility] Work Phone: Start: 05-29-2023 End: 05-29-2023 Patient encounter procedure MD Vida Arita Work Phone: [facility] Care Work Phone: Start: 11-10-2022 End: 11-10-2022 ambulatory Lily Brush Other [facility] Other Start: 11-10-2022 Telephone encounter Lily Brush [facility] Start: 11-08-2022 Office outpatient ne w 20 minutes Lily Brush [facility] Start: 11-08-2022 End: 11-08-2022 ambulatory Lily Brush Other [facility] Other Start: 11-08-2022 End: 11-08-2022 Departed Referred LEATHER CARVER Lily Brush Work Phone: [facility]Lab Main Ignacio Work Phone: Start: 03-31-2022 End: 04-02-2022 Subsequent hospital visit by physician Igor Patel Rm 3 [facility] Ultrasound Comment on above: Abnormality of right breast on screening mammogram Start: 02-14-2022 End: 02-16-2022 Subsequent hospital visit by physician Igor Best Mammo Rm 2 [facility] Mammography Comment on above: Encounter for screen ing mammogram for malignant neoplasm of breast Start: 01-17-2022 End: 01-17-2022 Subsequent hospital visit by physician Vida Arita MD Work Phone: [facility] Comment on above: Abnormal uterine ble eding (AUB) Start: 01-13-2022 End: 01-15-2022 Subsequent hospital visit by physician Igor Patel Rm 1 [facility]tras[facility] Comment on above: Abnormal uterine ble eding (AUB) Start: 12-02-2021 End: 12-03-2021 ambulatory PADMINI [facility] Start: 12-02-2021 End: 12-03-2021 Encounter for gynecological examination (general) (routine) without abnormal findings PADMINI [facility] Start: 12-02-2021 End: 12-02-2021 Subsequent hospital visit by physician Vida Arita MD Work Phone: [facility] Start: 06-13-2021 End: 06-13-2021 ambulatory [facility] Facility: Start: 11-09-2019 End: 11-09-2019 Subsequent hospital visit by physician Vida CHUN[facility] Start: 08-12-2019 End: 08-12-2019 Subsequent hospital visit by physician Vida CHUNG [facility] Start: 07-27-2019 End: 07-27-2019 Subsequent hospital visit by physician Vida PURVIS Laboratory Procedures Date Procedure Procedure Detail Performing Clinician Start: 02-26-2024 Comprehensive metabo lic panel Vida Arita MD Work Phone: Start: 02-26-2024 Lipid panel Vida Arita MD Work Phone: Start: 07-10-2023 Core needle biopsy o f breast using ultrasound guidance MD Vida Arita Work Phone: Start: 05-29-2023 Ultrasonography of r ight breast MD Vida Arita Work Phone: Start: 05-29-2023 Mammography of right breast MD Vida Arita Work Phone: Start: 03-31-2022 Us breast uni real t kisha with image limited Padmini Banda MD Work Phone: Start: 03-31-2022 Diagnostic mammograp hy computer-aided detcj uni Padmini Banda MD Work Phone: Start: 02-14-2022 Screening mammograph y bi 2-view breast inc cad Padmini Banda MD Work Phone: Start: 01-17-2022 Gonadotropin follicl e stimulating hormone Padmini Banda MD Work Phone: Start: 01-17-2022 Lipid panel Padmini maldonado MD Work Phone: Start: 01-13-2022 Us transvaginal Padmini Banda MD Work Phone: Start: 12-02-2021 Microscopic observat ion [Identifier] in Cervix by Cyto stain Sta 1 Start: 07-27-2019 Blood count complete auto&auto difrntl wbc Vida Arita Work Phone: Start: 06-11-2016 Microscopic observat ion [Identifier] in Cervix by Cyto stain Vida Arita MD Work Phone: Plan of Treatment Date Care Activity Detail Author Start: 05-12-2034 DTaP/Tdap/Td vaccine (2 - Td or Tdap) DTaP/Tdap/Td vaccine (2 - Td or Tdap) [facility] Start: 02-25-2029 Lipid panel Lipids [facility] Start: 01-17-2027 Lipid panel Lipids [facility] Start: 12-02-2026 Screening for malign ant neoplasm of cervix [facility] Start: 06-02-2025 Screening for malign ant neoplasm of breast Breast cancer screen [facility] Start: 12-02-2024 Screening for malign ant neoplasm of cervix Pap smear [facility] Start: 11-11-2024 Influenza vaccination Flu vacc ine (Season Ended) [facility] Start: 09-09-2024 End: 09-09-2024 Patient encounter procedure 09/09/2024 11:45 AM EDT Office Visit [facility] [employer] [address] [place], [place] [address] [address] Padmini Banda MD [address] [place] [address] Annual exam [employer] Hallie [facility] Comment on above: Annual exam Start: 08-09-2024 End: 08-09-2024 Patient encounter procedure 08/09/2024 6:15 [place] [address] Horacio Looney MD [address] [place] [address] MEDIA *IAC/BRAIN W/WO* SCHED WPT [facility] Comment on above: MEDIA *IAC/BRAIN W/W O* SCHED WPT Start: 12-13-2023 COVID-19 Vaccine ( season) COVID-19 Vaccine ( season) [facility] Start: 12-13-2023 COVID-19 Vaccine ( season) COVID-19 Vaccine ( season) [facility] Start: 11-12-2023 Influenza vaccination Flu vaccine (# 1) [facility] Start: 07-10-2023 [facility] Start: 11-08-2022 Bacteria identified in Urine by Culture Urine Culture [facility] Start: 04-15-2022 End: 04-15-2022 Patient encounter procedure 04/15/2022 Procedure visit Obstetrics and Gynecology Padmini Banda MD [address] [facility] [address] [place] [address] [facility] [employer] [facility] Start: 03-05-2022 End: 03-05-2022 Patient encounter procedure 03/05/2022 Office Visit Obstetrics and Gynecology Padmini Banda MD [address] [facility] [address] [place] [address] [facility] [employer] [facility] Start: 2022 Lipid panel Lipids [facility] Start: 12-12-2021 Influenza vaccination Flu vaccine (# 1) [facility] Start: 11-11-2021 Influenza vaccination Flu vaccine (# 1) [facility] Start: 12-13-2019 Influenza vaccination [facility] [place] Start: 06-12-2019 Screening for malign ant neoplasm of cervix [facility] Start: 01-11-2012 Screening for malign ant neoplasm of cervix HPV (without or with Pap) [facility] Start: 07-25-2002 Hepatitis B vaccine (2 of 3 - 19+ 3-dose series) Hepatitis B vaccine (2 of 3 - 19+ 3-dose series) [facility] Start: 2001 DTaP/Tdap/Td vaccine (1 - Tdap) DTaP/Tdap/Td vaccine (1 - Tdap) [facility] Start: 01-11-2000 Hepatitis C screening Hepatitis C sc reen [facility] Start: 1997 HIV screening HIV screen [facility] Start: 1995 Varicella vaccine (1 of 2 - 13+ 2-dose series) Varicella vaccine (1 of 2 - 13+ 2-dose series) [facility] Start: 1994 Depression Screen Depression Screen [facility] Start: 1983 Varicella vaccine (1 of 2 - 2-dose childhood series) Varicella vaccine (1 of 2 - 2-dose childhood series) [facility] Start: 1982 COVID-19 Vaccine (#1) COVID-19 Vacci ne (#1) [facility] End: 08-12-2019 Covid-19 Ambulatory Covid-19 Ambulatory Lab Routine Once for 1 Occurrences starting 08/12/2019 until 08/12/2019 [place] Comment on above: Once for 1 Occurrenc es starting 08/12/2019 until 08/12/2019 Covid-19 Ambulatory Covid-19 Amb ulatory Lab Routine 08/12/2019 5:09 PM EDT [place] End: 12-02-2021 DOG SHOW JUDGE Cytology DOG SHOW JUDGE Cytology Lab Routine Once for 1 Occurrences starting 12/02/2021 until 12/02/2021 [facility] Work Phone: Comment on above: Once for 1 Occurrenc es starting 12/02/2021 until 12/02/2021 End: 08-05-2024 MR Brain WO and W contrast IV [facility] Comment on above: 1 Occurrences starti ng 08/05/2024 until 08/05/2024 End: 08-05-2024 MR Internal auditory canal and Posterior fossa WO and W contrast IV [facility] Comment on above: 1 Occurrences starti ng 08/05/2024 until 08/05/2024 End: 07-29-2024 Nicotine screen, urine [facility] [employer] Work Phone: Comment on above: 1 Occurrences starti ng 07/29/2024 until 07/29/2024 End: 01-17-2022 TSH with Reflex to FT4 TSH with Reflex to FT4 Lab Routine Abnormal uterine bleeding (AUB) 1 Occurrences starting 01/17/2022 until 01/17/2022 [employer] Work Phone: Comment on above: 1 Occurrences starti ng 01/17/2022 until 01/17/2022 Immunizations Immunization Date Immunization Notes Care Provider Ruben ryder 01-14-2022 influenza, seasonal, injectable Vida Arita MD Work Phone: [employer] 03-14-2021 COVID-19, [place] Vaccine , Vaccine Unspecified Vida Arita MD Work Phone: [employer] 02-12-2021 influenza virus vaccine, unspecified formulation Vida Arita MD Work Phone: [employer] 05-07-2020 COVID-19, [place] Vaccine , Vaccine Unspecified Vida Arita MD Work Phone: [employer] 04-09-2020 COVID-19, [place] Vaccine , Vaccine Unspecified Vida Arita MD Work Phone: [employer] 02-17-2020 influenza virus vaccine, unspecified formulation Vida Arita MD Work Phone: [employer] 01-30-2020 influenza virus vaccine, unspecified formulation Vida Arita MD Work Phone: [employer] Work Phone: 02-09-2018 influenza virus vaccine, unspecified formulation Vida Arita [employer] 01-29-2017 influenza virus vaccine, unspecified formulation Vida Arita MD Work Phone: [employer] 06-27-2002 hepatitis B vaccine, adult dosage Vida Arita MD Work Phone: [employer] Payers Date Payer Category Payer Self-pay 2018 Private Health Insurance A[employer] A ETNA - OPEN ACCESS (HMO) xxxxxxxxxx 2018-Present [phone] [address] [place] [address] xxxxxxxxxx [id number] 2018 Private Health Insurance YEMI MCKEON - OPEN ACCESS (HMO) [id number] 2018-Present [phone] [address] [place] [address] [id number] 1982 Unknown [id number] 1982 Unknown [id number] 1982 Unknown [id number] 1982 Unknown [id number] 1982 Unknown [id number] 1982 Unknown [id number] 1959 Private Health Insurance [id number] Unknown [id number] Social History Date Type Detail Facility Tobacco smoking stat [facility] [place] Start: 1980 Sex Assigned At Not on file [place] Start: 12-02-2021 End: 04-20-2023 Tobacco smoking status PAIS Ex-smoker [employer] Phone: Start: 11-11-1998 End: 04-13-2005 History of tobacco use Current smoker [employer] Phone: Start: 11-11-1998 End: 04-13-2005 History of tobacco use Cigarette Smoker [employer] Phone: Start: 12-02-2021 End: 04-20-2023 Tobacco use and exposure Smokeless tobacco non-user [employer] Phone: Start: 12-02-2021 End: 03-05-2022 Alcohol intake Current drinker of alcohol (finding) [facility] Phone: Start: 12-02-2021 History SDOH Alcohol Comment social [employer] Phone: Start: 05-27-2022 End: 05-14-2023 Sex Assigned At [employer] Start: 1980 Sex Assigned At Female F [facility] Start: 05-27-2022 End: 04-20-2023 Cigarettes smoked current (pack per day) - Reported 0.3 [employer] Start: 07-16-2023 Alcoholic beverage intake Ex-drinker (finding) [employer] (I/We) worried whe er (my/our) food would run out before (I/we) got money to buy more. 1 [employer] Tobacco smoking stat us PAIS Unknown if ever smoked [facility] Work Phone: Start: 05-23-2012 End: 06-03-2024 Sex Female (finding) [facility] Clinical Notes 11-08-2022 Note Date & Type Note Facility 11-08-2022 Evaluation note Encounter Date Diagnosis Assessment Notes Oct, Dysuria (ICD-10 - R30.0) Oct, Acute lower UTI (ICD-10 - N39.0) UA with small leukocytes. Will treat with bactrim. As needed Pyridium Rx sent for symptomatic treatment. Push fluids. We will culture urine and notify of results in 2 to 4 days. Advised to follow-up with PCP if symptoms or not gradually improving over the next 3 to 4 days. Patient verbalized understanding of treatment plan. [facility] Other Evaluation note* Diagnosis Abnormal uterine bleeding (AUB) documented in this encounter [facility] Phone: evaluation note* Diagnosis Abnormal uterine bleeding (AUB) documented in this encounter [facility] Phone: [email or web address] note* Diagnosis Encounter for screening mammogram for malignant neoplasm of breast Other screening mammogram documented in this encounter [facility] Phone: [email or web address] note* Diagnosis Abnormality of right breast on screening mammogram documented in this encounter [employer] Phone: [email or web address] noteNo InformationNortH[facility] [employer] Other Evaluation noteNo assessment information available [facility] Work Phone: Evaluation note* Diagnosis Onset Date Resolution Status Breast mass, right acute [facility] Work Phone: Evaluation note* Diagnosis Pre-op testing Preoperative examination, unspecified documented in this encounter [employer] note* Diagnosis 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, unspecified hearing status on contralateral side documented in this encounter [facility] general Narrative - Reported* Type Description Date Surgical History 2 -c-sections Hospitalization History see above [place] [employer] Other Reason for visit Narrative* Imaging (Routine) - Closed Specialty Diagnoses / Procedures Referred By Contac t Referred To Contact Radiology Diagnoses 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, unspecified hearing status on contralateral side Procedures MRI IAC POSTERIOR FOSSA W WO CONTRAST Horacio Looney MD [address] [place] [address] Phone: tel: fax: Referral ID Status Reason Start Date Expiration Date Visits Re quested Visits Authorized [id number] Closed 07/25/2024 07/25/2025 1 1 [employer] Advance Directives No Advanced Directives Records FoundDocuments on File Type Date Recorded 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 Expl 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 Advance Directives and Living Will 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 Advance Directive Response Recorded Date/ Time Advance Directives No November 10 11:18am Advance Directive Response Recorded Date/ Time Advance Directives No November 10 12:18pm Summary Purpose Family History No Family History Records Found Relationship Condition Age at Onset Recorded Date/T kisha father Heart disease Unknown Reason for Referral Specialty Diagnoses / Procedures Referred By Contac t Referred To Contact Radiology Diagnoses Abnormal uterine bleeding (AUB) Procedures US PELVIS COMPLETE Padmini Banda MD [address] [facility] [address] [place] [address] Referral ID Status Reason Start Date Expiration Date Visits Re quested Visits Authorized [id number] Open 12/02/2021 12/02/2022 1 1 Specialty Diagnoses / Procedures Referred By Contac t Referred To Contact Radiology Diagnoses Abnormal uterine bleeding (AUB) Procedures US NON OB TRANSVAGINAL Padmini Banda MD [address] [facility] [address] [place] [address] Referral ID Status Reason Start Date Expiration Date Visits Re quested Visits Authorized [id number] Open 12/02/2021 12/02/2022 1 1 Specialty Diagnoses / Procedures Referred By Contac t Referred To Contact Radiology Diagnoses Encounter for screening mammogram for malignant neoplasm of breast Procedures MANUELA LATRICE DIGITAL SCREEN BILATERAL Padmini Banda MD [address] [facility] [address] [place] [address] Referral ID Status Reason Start Date Expiration Date Visits Re quested Visits Authorized [id number] Closed 05/31/2022 05/31/2023 1 1 Chief Complaint and Reason for Visit Chief Complaint r92.8 Anemia D64.9 , CEE E61.1 Chief Complaint r92.8 Anemia D64.9 , CEE E61.1 rt breast mass Reason for Visit Breast mass, right Additional Source Comments INFORMATION SOURCE (unrecogn ized section and content) DATE CREATED AUTHOR [facility]18/2021 [facility] DATE CREATED AUTHOR AUTHOR'S ORGANIZ ATION 11/11/2022 [facility] DATE CREATED AUTHOR AUTHOR'S ORGANIZ ATION 06/05/2024 [facility] DATE CREATED AUTHOR AUTHOR'S ORGANIZ ATION 10/05/2024 [facility] Teams (unrecognized sec tion and content) Meat Service Team Member Relationship Specialty Start Date End Date Vida Arita MD [address] [facility] [place] [address] PCP - General Family Medicine 07/27/19 Meat Service Team Member Relationship Specialty Start Date End Date Vida Arita MD [address] [place] [address] PCP - General Family Medicine 07/27/19 Meat Service Team Member Relationship Specialty Start Date End Date Vida Arita MD [address] [place] [address] PCP - General Family Medicine 07/27/19 Meat Service Team Member Relationship Specialty Start Date End Date Vida Arita MD [address] [facility] [place] [address] PCP - General Family Medicine 07/27/19 Meat Service Team Member Relationship Specialty Start Date End Date Vida Arita MD [address] [place] [address] PCP - General Family Medicine 07/27/19 Team Status: Inactive Member Role Status Jayson Brush APRN Attending Provider Active Team Status: Active Member Role Status Jayson Arita MD Primary Care Provider Active Team Status: Inactive Member Role Status Jayson Arita MD Primary Care Provider Active Start: May 29, 2023 End: May 29, 2023 Padmini Banda MD Attending Provider Active Start: May 29, 2023 End: May 29, 2023 Team Status: Active Member Role Status Jayson Arita MD Primary Care Provide r, Attending Provider, Referring Provider Active Start: May 29, 2023 Team Status: Inactive Member Role Status Jayson Arita MD Primary Care Provider Active Start: July 10, 2023 End: July 10, 2023 Padmini Banda MD Attending Provider Active Start: July 10, 2023 End: July 10, 2023 Meat Service Team Member Relationship Specialty Start Date End Date Vida Arita MD [address] [place] [address] PCP - General Family Medicine 07/27/19 Meat Service Team Member Relationship Specialty Start Date End Date Vida Arita MD [address] [place] [address] PCP - General Family Medicine 07/27/19 Meat Service Team Member Relationship Specialty Start Date End Date Vida Arita MD [address] [place] [address] PCP - General Family Medicine 07/27/19 Reason for Visit (unrecogniz ed section and content) Specialty Diagnoses / Procedures Referred By Huma t Referred To Contact Radiology Diagnoses Abnormal uterine bleeding (AUB) Procedures US NON OB TRANSVAGINAL Padmini Banda MD [address] [place] [address] Referral ID Status Reason Start Date Expiration Date Visits Re quested Visits Authorized [id number] Open 12/02/2021 12/02/2022 1 1 Specialty Diagnoses / Procedures Referred By Huma t Referred To Contact Radiology Diagnoses Encounter for screening mammogram for malignant neoplasm of breast Procedures MANUELA LATRICE DIGITAL SCREEN BILATERAL Padmini Banda MD [address] [facility] [address] [place] [address] Referral ID Status Reason Start Date Expiration Date Visits Re quested Visits Authorized [id number] Closed 05/31/2022 05/31/2023 1 1 Specialty Diagnoses / Procedures Referred By Gianac t Referred To Contact Radiology Diagnoses Abnormality of right breast on screening mammogram Procedures US BREAST LIMITED RIGHT US BREAST COMPLETE RIGHT Padmini Banda MD [address] [facility] [address] [place] [address] Referral ID Status Reason Start Date Expiration Date Visits Re quested Visits Authorized [id number] Open 02/14/2022 02/14/2023 1 1 Specialty Diagnoses / Procedures Referred By Contac t Referred To Contact Radiology Diagnoses Abnormality of right breast on screening mammogram Procedures MANUELA LATRICE DIGITAL DIAGNOSTIC UNILATERAL RIGHT MANUELA DIGITAL DIAGNOSTIC W OR WO CAD RIGHT Padmini Banda MD [address] [place] [address] Referral ID Status Reason Start Date Expiration Date Visits Re quested Visits Authorized [id number] Closed 02/14/2022 02/14/2023 1 1 Goals (unrecognized section and content) Goals may be documented in a n alternate section FOR RECORDS PERTAINING TO PATIENTS WHO ARE OR HAVE BEEN ENROLLED IN A CHEMICAL DEPENDENCY/SUBSTANCEABUSE PROGRAM, SOME INFORMATION MAY BE OMITTED. This clinical summary was aggregated from multiple sources. Caution should be exercised in using it in the provision of clinical care. This summary normalizes information from multiple sources, and as a consequence, information in this document may materially change the coding, format and clinical context of patient data. In addition, data may be omitted in some cases. CLINICAL DECISIONS SHOULD BE BASED ON THE PRIMARY CLINICAL RECORDS. [facility] [employer] [facility]. provides no warranty or guarantee of the accuracy or completeness of information in this document.
[2024-12-31 09:39] LABS: Hematocrit 37.9 % (36.0-48.0); Hemoglobin 12.1 g/dL (12.0-16.0); Immature Granulocytes Abs Auto 0.02 10^3/uL (0.00-0.03); Immature Granulocytes Pct Auto 0.4 % (0.0-0.5); Lymphocytes Absolute Auto 1.4 10^3/uL (1.2-3.8); Mean Corpuscular HGB Conc 31.9 g/dL (29.9-35.2); Mean Corpuscular Hemoglobin 27.4 pg (26.7-34.0); Mean Corpuscular Volume 85.9 fL (81.0-99.0); Platelet Count 251 10^3/uL (150-450); Red Blood Count 4.41 10^6/uL (4.20-5.40); White Blood Count 5.6 10^3/uL (4.0-11.0)
[2024-12-31 10:33] LABS: Iron 18.0 ug/dL (50.0-170.0)
[2024-12-31 10:44] LABS: Alanine Aminotransferase 26 U/L (14-59); Albumin Globulin Ratio 1.1; Albumin Level 3.8 g/dL (3.4-5.0); Alkaline Phosphatase 68 U/L (46-116); Anion Gap 12.4; Aspartate Amino Transferase 14 U/L (15-37); Blood Urea Nitrogen 13.0 mg/dL (7.0-18.0); Calcium 9.1 mg/dL (8.5-10.1); Carbon Dioxide 27.8 mmol/L (21.0-32.0); Chloride 108 mmol/L (98-107); Estimated GFR (African America >60 (>=60 mL/min/1.73m^2); Estimated GFR (Non-African Ame >60 (>=60 mL/min/1.73m^2); Free T3 3.08 pg/mL (2.18-3.98); Globulin 3.4 g/dL; Glucose 90 mg/dL (74-106); Potassium 4.2 mmol/L (3.5-5.1); Sodium 144 mmol/L (136-145); Thyroid Stimulating Hormone 1.244 uIU/mL (0.358-3.740); Total Protein 7.2 g/dL (6.4-8.2)
== END 2024-12-31 08:52 | disposition home or self-care (01) ==
PROVIDERS: PCP Family Medicine; Visit Provider Family Medicine
DX: R00.2 Palpitations (principal); D64.9 Anemia, unspecified; L65.9 Nonscarring hair loss, unspecified
CPT/HCPCS: 36415; 80053; 82306; 82533; 83036; 83525; 83540; 84436; 84443; 84481; 85025

== ENCOUNTER 2025-04-12 08:22 | Outpatient (OUT) | payer OTHER, SELFPAY ==
--- OUTSIDE RECORDS SUMMARY | 2025-04-12 08:27 | XMS_ITS | Clinical Summary ---
Author Organization [employer] Address [id number] [address] [place] [address] Care Team Providers Care Corrugator Name Role Phone Dawson Arita MD Primary Care Provider [phone] Allergies Active AllergyReactionsCriticalityNoted WubdRbphmheqIlnuzotlhai09/10/2017 Shellfish Ctzbgzf1001/20/2017 Medications MedicationSigDispense QuantityRefillsLast FilledStart DateEnd DateStatus minocycline (MINOCIN,DYNACIN) 100 mg capsule 01/14/2017Active spironolactone (ALDACTONE) 50 mg tablet 100 mg. 01/14/2017Active FERROUS SULFATE (IRON ORAL) Take by mouth.Active HYDROcodone-acetaminophen (NORCO) 5-325 mg per tablet Indications:Internal hemorrhoidsTake 1-2 orally every 4 hours as needed for pain 30 tablet 04/21/2017Active Additional Information Patient not taking.Reported on 02/23/2025 HYDROcodone-acetaminophen (NORCO) 5-325 mg per tablet Indications:Internal hemorrhoidsTake 1-2 orally every 4 hours as needed for pain 20 tablet 06/08/2018Active Additional Information Patient not taking.Reported on 02/23/2025 bisacodyl (DULCOLAX) 5 mg EC tablet Take 5 mg by mouth daily as needed for constipation.Active HYDROcodone-acetaminophen (NORCO) 5-325 mg per tablet Indications:Internal hemorrhoidsTake 1-2 orally every 4 hours as needed for pain 20 tablet 03/22/2019Active Additional Information Patient not taking.Reported on 02/23/2025 Active Problems No known active problems Encounters DateTypeDepartmentCare YjdxTzybbzhaide32/13/2025 2:00 PM ESTOffice Visit [facility] [address] [address] Kolby Borjsa MD Internal hemorrhoids (Primary Dx); Acute pain; Rectal oanqyrvb88/13/1105Zaqccs38/03/2025Travelfrom Last 3 Months Family History Medical HistoryRelationNameCommentsHeart diseaseFatherRelationNameStatusComments FatherAliveMotherAlive Social History Tobacco UseTypesPacks/DayYears UsedDateSmoking Tobacco: FormerSmokeless Tobacco: Never Tobacco Cessation:Counseling Given: No Alcohol UseStandard Drinks/WeekCommentsYes0 (1 standard drink = 0.6 oz pure alcohol)ChildcareAnswerDate TuhjhtieOogozcmhbZrnqvjo86/10/2019EmploymentAnswer Date MpexwlnvAzhsnhpujzNbdnvky76/10/2019Purpose - LifeAnswerDate RecordedPurpose and direction in zxdyMbeidyn71/10/2021CommentsUnknownSex and Gender InformationValueDate RecordedSex Assigned at BirthNot on fileLegal SexFemale 11/14/2014 2:31 PM EDTGender IdentityNot on fileSexual OrientationNot on file Last Filed Vital Signs Vital SignReadingTime TakenCommentsBlood Qestqlnz262/8502/23/2025 1:32 PM EST Icnfy487102/23/2025 1:32 PM ESTTemperature--Respiratory Rate--Oxygen Saturation-- Inhaled Oxygen Concentration--Ubotms02.2 kg (135 lb)02/23/2025 1:32 PM ESTHeight 165.1 cm (5' 5 )02/23/2025 1:32 PM ESTBody Mass Index22.4702/23/2025 1:32 PM EST Plan of Treatment Health MaintenanceDue DateLast DoneCommentsDepression Vdbtyeuzg47/30/1994Pap Smear12/02//, 12/02/2021OVID-19 Vaccine ( season) 5105/15/2020, 05/07/2020, 04/09/2020Influenza Qpjbzey8612/12/2024 02/19/2023, 01/14/2022, 02/12/2021, Additional history existsAdult BMI Screening 6104/25/2024Tobacco Jeipgrdtj49/13/41934204/25/2024DTaP,Tdap and Td Vaccines (2 - Td or Tdap) Medical Devices Not on file Insurance Care Teams Team MemberRelationshipSpecialtyStart DateEnd Date Dawson Arita MD PCP - Myqmrkl78/10/17
--- OUTSIDE RECORDS SUMMARY | 2025-04-12 08:27 | XMS_ITS | Patient Health Record ---
Author Organization [facility] in [place] Address [address] [place] [address] Care Team Providers Care Jewel Cupping Machine Operator Name Role Phone Micky Arita Primary Care Provider Allergies Allergen (clinical drug ingredient) Drug/Non Drug Allergy documented on EMR Reaction Allergy Type Onset Date Status IodinehivesDrug AllergyActiveamoxicillinAmoxicillinhivesDrug AllergyActive Results Component Value Reference Range Notes CORTISOL AM Reviewed date:01/01/2025 06:32:11 PM Interpretation: Performing Lab: Notes/Report: [facility] , Cortisol - AM 14.4 6.2-19.4 ug/dL Performed at: - [facility] [address] [id number] Forming Machine Upkeep Mechanic: Horacio Mendoza PhD, Phone: [phone] Performing Lab: see note LC - [facility] LBVITAMIN D 25 [place] Reviewed date:12/31/2024 03:24:53 PM Interpretation: Performing Lab: Notes/Report: [facility] ,Vitamin D66.6 <20 ng/mL Vit D deficient 20-<30 ng/mL Vit D insufficient 30-100 ng/mL Vit D sufficient >100 ng/mL Potential Toxicity Performing Lab:see note - [facility] LBGLYCOHEMOGLOBIN A1C Reviewed date:12/31/2024 03:24:52 PM Interpretation: Performing Lab: Notes/Report: [facility] ,Glycohemoglobin A1C4.94.5-6.2 % ADA RECOMMENDED LIMIT 4.0 - 6.0 ADA THERAPEUTIC TARGET < 7.0 ACTION SUGGESTED > 7.0 Estimated Average Evtnckz97Yogdcmkxxq Lab:see noteML - [facility] LB CBC AUTO DIFF Reviewed date:12/31/2024 03:24:52 PM Interpretation: Performing Lab: Notes/Report: [facility] ,White Blood Count5.64.0-11.0 10 3/uLRed Blood Count4.414.20-5.40 10 6/uL Rhnhukqnik48.112.0-16.0 g/lOSffkhfgvin70.936.0-48.0 %Mean Corpuscular Lqxyst47.9 81.0-99.0 fLMean Corpuscular Znlogedeyd14.426.7-34.0 pgMean Corpuscular HGB Conc 31.929.9-35.2 g/dLRed Cell Distribution Width15.911.0-15.0 %Platelet Ckage650 150-450 10 3/uLMean Platelet Unnytl64.29.5-13.5 fLNeutrophils Percent Auto62.1 43.0-75.0 %Lymphocytes Percent Auto25.520.5-60.0 %Monocytes Percent Auto9.61.7- 12.0 %Eosinophils Percent Auto2.00.9-7.0 %Basophils Percent Auto0.40.2-2.0 % Immature Granulocytes Pct Auto0.40.0-0.5 %Neutrophils Absolute Auto3.51.4-6.5 10 3/uLLymphocytes Absolute Auto1.41.2-3.8 10 3/uLMonocytes Absolute Auto0.50.3-0.8 10 3/uLEosinophils Absolute Auto0.10.0-0.7 10 3/uLBasophils Absolute Auto0.00.0- 0.1 10 3/uLImmature Granulocytes Abs Auto0.020.00-0.03 10 3/uLPerforming Lab:see noteML - [facility] LBTSH Reviewed date:12/31/2024 03:24:52 PM Interpretation: Performing Lab: Notes/Report: [facility] ,Thyroid Stimulating Hormone1.2440.358-3.740 uIU/mLPerforming Lab:see noteML - [facility] LBT4 Reviewed date:12/31/2024 03:24:52 PM Interpretation: Performing Lab: Notes/Report: [facility] ,T4 Thyroxine6.504.80-13.90 ug/dLPerforming Lab:see noteML - [facility] LBPROF 14(COMP METB) Reviewed date:12/31/2024 03:24:52 PM Interpretation: Performing Lab: Notes/Report: [facility] ,Rwjtnk437021-394 mmol/LPotassium4.23.5-5.1 mmol/WLwtkmzsw37898-216 mmol/LCarbon Hrawrbx75.821.0-32.0 mmol/LAnion Gap12.9Jlvyxgj2073-990 mg/dLBlood Urea Nitrogen 13.07.0-18.0 mg/dLCreatinine0.790.55-1.02 mg/dLEstimated GFR ( Jodi>60 >=60 mL/min/1.73m 2Estimated GFR (Non- Herminia>60>=60 mL/min/1.73m 2BUN Creatinine Ratio16.3Elqbxwz0.18.5-10.1 mg/dLBilirubin Total0.30.2-1.0 mg/dL Aspartate Amino Xzvrnpnhtdf0300-00 U/LAlanine Hdbpbcwkpiojfwtt3445-97 U/L Alkaline Zgwxnxzookr8194-785 U/LTotal Protein7.26.4-8.2 g/dLAlbumin Level3.83.4- 5.0 g/dLGlobulin3.4Albumin Globulin Ratio1.1Performing Lab:see noteML - [facility] LBIRON Reviewed date:12/31/2024 03:24:52 PM Interpretation: Performing Lab: Notes/Report: [facility] ,Iron18.050.0-170.0 ug/dLPerforming Lab:see noteML - [facility] LB INSULIN Reviewed date:01/01/2025 06:32:11 PM Interpretation: Performing Lab: Notes/Report: [facility] ,Oeuclza10.62.6-24.9 uIU/mL Performed at: [facility] [address] [id number] Forming Machine Upkeep Mechanic: Horacio Mendoza PhD, Phone: [phone] Performing Lab:see note - [facility] LBFREE T3 Reviewed date:12/31/2024 03:24:52 PM Interpretation: Performing Lab: Notes/Report: [facility] ,Geovanny T33.082.18-3.98 pg/mLPerforming Lab:see noteML - [facility] LB Reason For Referral Reason Breast reduction perry moplasty Diagnosis 1 Shoulder pain (M25.5 19) Referral Organization [facility] Referring Provider First Name Micky Referring Provider Last Name Juan J [facility]erred Provider Arlene Dominique Referred Provider Specialty Plastic and Reconstructive Surgery Referral Priority Routine Diagnosis 1 Rectal bleeding (K62 .5) Referral Organization [facility] Referring Provider First Name Micky Referring Provider Last Name [facility] Referring Provider [facility] Referred Provider Erasto Nguyễn Referred Provider Specialty Gastroentero logy Referral Priority Routine Medications Medication SIG (Take, Route, Frequency, Duration) Notes Start Date End Date Status Spironolactone 50 MG 2 tablets Oral in AM and 1 tablet at HS; Duration: 90 days ActiveValium 5 MG 1 tablet as needed Orally once about 1 hour before flight; Duration: 2 days F41.9 5ActiveMinocycline HCl 100 MG1 capsule Orally Once a day; Duration: 30 daysActiveFerrous Sulfate 325 (65 Fe) MG1 tablet Orally Twice Daily; Duration: 30 days5ActiveAzithromycin 250 MG2 tabs today then 1 tab Orally daily; Duration: 5 days5ActivePumpkin Seed Oil -as directed OrallyActive MagnesiumActiveCollagenActiveBiotin 46175 MCG1 tablet Orally Once a dayActive Immunizations Vaccine Route Administration Date Status Comme nts Tdap (Adacel) IM Intramuscular 05/12/2024 Administered Social History Tobacco Use: Social History Observation Description Date Details (start date - stop date) Former Smoker 04/13/1999 - 04/13/2004 Tobacco Use/Smoking Question Answer Notes Patient is a former smoker When did you start smoking?04/13/1999When did you stop smoking?04/13/2004How long has it been since you last smoked?> 10 yearsAdditional Findings: Tobacco UserLight cigarette smoker ((1-9 cigs/day)Alcohol Screen (Audit-C) Question Answer Notes Did you have a drink containing alcohol in the p ast year? Yes How often did you have 6 or more drinks on one occasion in the past year?Never (0 point)How many drinks did you have on a typical day when you were drinking in the past year?1 or 2 drinks (0 point)How often did you have a drink containing alcohol in the past year?Less than monthly (1 point)Zpreiw0Ywgvmpkpyijzev Negative Problems Problem Type SNOMED Code ICD Code Onset Dates Problem Status W/U Status Risk Notes Problem Iron deficiency (95850442) Iron deficienc y (E61.1) ActiveconfirmedProblemGastroesophageal reflux disease (131686162)GERD (gastroesophageal reflux disease) (K21.9)ActiveconfirmedProblemPalpitations (02187372)Palpitation (R00.2)ActiveconfirmedProblemAnemia (032410548)Anemia (D64.9)ActiveconfirmedProblemInsomnia (478748437)Insomnia (G47.00)Active confirmedProblemEczema (06410072)Eczema (L30.9)ActiveconfirmedProblemShoulder pain (02705405)Shoulder pain (M25.519)ActiveconfirmedProblemAllergic rhinitis (30147513)Allergic rhinitis (J30.9)ActiveconfirmedProblemWell adult (616636899) Well adult (Z00.00)ActiveconfirmedProblemDysphagia (98659311)Dysphagia (R13.10) ActiveconfirmedProblemCellulitis (225698797)Cellulitis (L03.90)Activeconfirmed ProblemAlopecia (86275678)Hair loss (L65.9)ActiveconfirmedProblemPure hypercholesterolemia (264465468)Pure hypercholesterolemia (E78.00)Active confirmed Vital Signs Blood pressure diastolic 78 mm Hg 12/30/2024 Zmmflg76 in12/30/2024lood pressure akcvkjvw721 mm Hg12/30/20240017Dxjbte307.6 lbs 12/30/2024BMI23.62 kg/m212/30/2024 Encounters Encounter Location Date Provider Diagnosis [facility] [address] [place] [address] 01/11/2025 Micky Arita [facility] [place] [address] 01/27/2025[facility]Rect[facility]62.[facility] [facility] [place] [address]/Doug [facility] [address] [facility] [place] [address]/05/2024Doug [facility] [facility] [place] [address]/Doug [facility] [facility] [place] [address] 09/07/2024Doug [facility] [facility] [place] [address]/Doug [facility] [facility] [place] [address]/03/2025Doug [facility] [facility] [place] [address]/Doug [facility] [facility] [place] [address]/Doug [facility] [facility] [place] [address]/ Micky HoyCellulitis L03.90 and Laceration of finger S61.219ABPres[facility] [facility] [place] [address]/09/2024Doug Hoy Shoulder pain M25.519Bu[facility] [facility] [place] [address]/Doug HoyPalpitation R00.2 ; Anemia D64.9 and Hair loss L65.9 Assessments Encounter Date Diagnosis (ICD Code) Assessment Notes Treatment Notes Treatment Clinical Notes Section Notes 05/12/2024 Cellulitis (ICD-10 - L03.90) 05/12/2024Laceration of finger (ICD-10 - S61.219A)06/16/2024Shoulder pain (ICD- 10 - M25.519)Bilatearl shulder indentation - due to larger breast - needs breast dzzpjuuix36/19/2025Palpitation (ICD-10 - R00.2)12/30/2024nemia (ICD-10 - D64.9) 01/27/2025Rectal bleeding (ICD-10 - K62.5)12/30/2024Hair loss (ICD-10 - L65.9) Plan Of Treatment Pending Test Test Name Order Date CMP (COMPLETE METABOLIC PANEL) 3 CMP (COMPLETE METABOLIC PANEL) 4 HEMOGLOBIN A1C (GLYCO) 12/30/2024 HEMOGLOBIN A1C (GLYCO) 02/12/2023 HEMOGLOBIN A1C (GLYCO) 02/18/2024 IRON, TOTAL 12/30/2024 IRON, TOTAL 02/12/2023 IRON, TOTAL 02/18/2024 LIPID PANEL (CHOL/TRIG/HDL/LDL) 02/18/20 24 LIPID PANEL (CHOL/TRIG/HDL/LDL) 02/13/20 23 CBC WITH DIFF (EXP 02/2025) 02/12/2023 CBC WITH DIFF (EXP 02/2025) 02/18/2024 VITAMIN D, 25 LEVEL (TOTAL) 02/18/2024 VITAMIN D, 25 LEVEL (TOTAL) 02/12/2023 VITAMIN D, 25 LEVEL (TOTAL) 12/30/2024 Insulin Level 02/12/2023 Insulin Level 12/30/2024 STOOL OCCULT BLOOD 12/30/2024 MAGNESIUM 02/18/2024 THYROID PANEL (T4/TSH/FREE T3) 4 THYROID PANEL (T4/TSH/FREE T3) 3 THYROID PANEL (T4/TSH/FREE T3) 5 CMP (COMP MET DAVID) w/eGFR CKD-EPI 2024 CBC WITH DIFF 12/30/2024 Insurance Providers Payer Name Payer Address Payer Phone Subscriber Number Group Number Insured Name Patient Relationship to Insured Coverage Start Date Coverage End Date YEMI PICHARDO [address] [place] [address] [id number] Spencer Lemons Spouse - patient is the spouse of the insured Medical (General) History Medical History History ICD Code Anemia D64.9 GERD (gastroesophageal reflux disease) K 21.9 Dysphagia R13.10 Allergic rhinitis J30.9 Insomnia G47.00 Pure hypercholesterolemia E78.00 Eczema L30.9 Surgical History Surgery Date(Month/Year) colonoscopy 2017 rubber-band ligation internal hemorrhoid s x4 2017
--- OUTSIDE RECORDS SUMMARY | 2025-04-12 08:27 | XMS_ITS | Clinical Summary ---
Author Organization [facility] Address [address], [address] [place] [address] Care Team Providers Care Nurse First Assist Name Role Phone Dawson Arita MD Primary Care Provider [phone] Allergies Active AllergyReactionsCriticalityNoted YnjhBqfjhvprGibsoieuatwUcbwl65/08/2025 RhesukIgfpPkt42/08/2025PenicillinsDizziness or Vertigo,Hives01/20/2017Shellfish Xltrrvc6701/20/2017 Medications MedicationSigDispense QuantityRefillsLast FilledStart DateEnd DateStatus spironolactone (ALDACTONE) 50 MG tablet 11/19/2021ctive minocycline (MINOCIN;DYNACIN) 100 MG capsule 3Active predniSONE (DELTASONE) 10 MG tablet Take 1 tablet by mouth daily As directedActive Collagen-Vitamin C-Biotin (COLLAGEN) 500-50-0.8 MG CAPS CollagenActive Magnesium Gluconate (MAGNESIUM 27 PO) MagnesiumActive diazePAM (VALIUM) 5 MG tablet 1 tablet as needed Orally once about 1 hour before flight; Duration: 2 days F41.905Active ferrous sulfate (IRON 325) 325 (65 Fe) MG tablet 1 tablet Orally Twice Daily; Duration: 30 days5Active DIFLUCAN 100 MG tablet 1 tablet Orally daily; Duration: 10 days5Active Misc Natural Products (PUMPKIN SEED OIL) CAPS Take by mouthActiveHospital, Clinic, or Other Facility Administered Medication Ordered DoseRouteFrequencyStart DateEnd DateStatus levonorgestrel (MIRENA) IUD 52 mg 1 each 1 pbwqNDZBVG16/03/2023ctive Active Problems ProblemNoted DateDiagnosed ActxGkfzneotdni61/29/2025bnormal uterine bleeding (AUB)03/05/2022 Resolved Problems ProblemNoted DateDiagnosed DateResolved DateIUD (intrauterine device) in place Encounters DateTypeDepartmentCare VgglXaotkvvunwl13/08/2025 8:45 AM EDTOffice Visit [facility] [address] [id number] Arlene Dominique MD Macromastia (Primary Dx)from Last 3 Months Immunizations ImmunizationAdministration DatesNext DueCOVID-19, [place] Vaccine, Vaccine Mdxamwvdbsb75/02/2021,05/07/2020,04/09/2020Hepatitis B006/27/2002Influenza Virus Esrqizd9902/12/2021,02/17/2020,01/30/2020,02/09/2018,01/29/2017Influenza, AFLURIA, FLUZONE, (age3 y+), IM, Trivalent MDV, 0.5mL01/14/2022 Family History Medical HistoryRelationNameCommentsUterine CancerPaternal GrandmotherRuby Zahira RelationNameStatusCommentsPaternal GrandmotherRuby Zahira Social History Tobacco UseTypesPacks/DayYears UsedDateSmoking Tobacco: FormerCigarettes0.310 11/11/1998 - 04/13/2005Smokeless Tobacco: Never Tobacco Cessation:Counseling Given: Not Answered Alcohol UseStandard Drinks/WeekCommentsNot Currently1 (1 standard drink = 0.6 oz pure alcohol)socialFood InsecurityAnswerDate RecordedWithin the past 12 months, you worried that your food would run out before you got the money to buymore.1 05/27/2022Within the past 12 months, the food you bought just didn't last and you didn't have money to get more.regnantCommentsNoSex and Gender InformationValueDate RecordedSex Assigned at InfxtNtaejp07/15/2025 9:09 PM EDT Legal VunMkwsul80/10/2013 8:35 PM ESTGender IdentityNot on fileSexual OrientationNot on file Last Filed Vital Signs Vital SignReadingTime TakenCommentsBlood Gmesnfmf484/8201/18/2025 8:52 AM EDT Mesxb077601/18/2025 8:52 AM EDTTemperature--Respiratory Rate--Oxygen Saturation-- Inhaled Oxygen Concentration--Zsixog53.1 kg (137 lb)01/18/2025 8:52 AM EDTHeight 162.6 cm (5' 4 )01/18/2025 8:52 AM EDTBody Mass Index23.5201/18/2025 8:52 AM EDT Plan of Treatment DateTypeDepartmentCare Team (Latest Contact Info)Chuqqkkjttx24/27/2026 11:00 AM ESTAppointment [facility] [address] [facility] [address] [place] [address] [facility] [place]05/23/2025 8:00 AM ESTHospital Encounter [facility] [address] [place] [address] Arlene Dominique MD [address] [place] [address] 05/23/2025 8:00 AM EST - 05/23/2025 1:05 PM ESTSurgery [facility] [place] [address] [place] [address] Arlene Dominique MD [address] [place] [phone] BILATERAL BREAST REDUCTION,05/31/2025 11:45 AM ESTOffice Visit [facility] [address] [place] [address] Arlene Dominique MD [address] [place] [address] Post op- Bilateral breast reduction DOS 03/30/2502 11:45 AM ESTOffice Visit [facility] [address] [place], [place] [phone] [place] [address] [facility] [address] [place] [address] Post op- Bilateral breast reduction DOS 03/30/25NamePriorityAssociated Diagnoses Date/TimeBREAST MAMMOPLASTY REDUCTION Macromastia 05/23/2025 8:00 AM ESTHealth MaintenanceDue DateLast DoneCommentsDepression Vygbah2001/10/1994Varicella vaccine (1 of 2 - 13+ 2-dose series)1995HIV acxxid6901/10/1997Hepatitis C ldyqlz7301/11/2000Hepatitis B vaccine (2 of 3 - 19+ 3- dose series)/Flu vaccine (#1)/07/2021, 02/12/2021, 02/17/2020, Additional history existsPap smear508/, 06/11/2016COVID-19 Vaccine ( season)/05/2020, 05/07/2020, 04/09/2020Breast cancer xndlod02/, 06/02/2023, 05/14/2023, Additional history existsCervical cancer iqljyg2112/02/2026HPV (without or with Pap)/1206Qsabzb31/15/202911/, 2DTaP/Tdap/Td vaccine (2 - Td or Tdap)501/Diabetes screenDiscontinued 02/26/2024, 01/17/2022HPV vaccine (No Doses Required)CompletedHepatitis A vaccineAged OutNo longer eligible based on patient's age to complete this topic Hib vaccineAged OutNo longer eligible based on patient's age to complete this topicMeningococcal (ACWY) vaccineAged OutNo longer eligible based on patient's age to complete this topicMeningococcal B vaccineAged OutNo longer eligible based on patient's age to complete this topicPneumococcal 0-49 years VaccineAged OutNo longer eligible based on patient's age to complete this topicPolio vaccine Aged OutNo longer eligible based on patient's age to complete this topic Procedures Procedure NamePriorityDate/TimeAssociated DiagnosisCommentsMAM LATRICE DIGITAL SCREEN VUNGJDAUNFuknzju24/19/2025 4:48 PM EDT Encounter for screening mammogram for breast cancer HEMOGLOBIN B1YRrpprqz97/15/2024 10:13 AM EST LIPID SQSFIOnwjfnl79/15/2024 10:13 AM EST HUMAN PAPILLOMAVIRUS (HPV) DNA PROBE THIN PREP HIGH LWZEYyrdvol06/22/2022 12:02 PM EDT ANALYTICS MANAGER UCUEFJJVNyjvxhz02/22/2022 12:02 PM EDT from Last 3 Months or Most Recently Relevant to Health Maintenance Results * MANUELA LATRICE DIGITAL SCREEN BILATERAL (09/29/2024 4:48 PM EDT)Anatomical Region LateralityModalityBreastBilateralMammographySpecimen (Source)Anatomical Location / LateralityCollection Method / VolumeCollection TimeReceived Time 10/04/2024 8:15 AM EDT Impressions 10/04/2024 8:20 AM EDT No mammographic evidence of malignancy. BI-RADS 2 BIRADS: BIRADS - CATEGORY 2 Benign Findings. ??Normal interval follow-up is recommended in 12 months. OVERALL ASSESSMENT - BENIGN A letter of notification will be sent to the patient regarding the results. [employer] recommends annual mammograms for women 40 years and older. Performing Facility: [place] [address] Narrative 10/04/2024 8:20 AM EDT EXAMINATION: SCREENING DIGITAL BILATERAL MAMMOGRAM WITH TOMOSYNTHESIS, [...] of microcalcifications, dominant mass or architectural distortion. Authorizing ProviderResult TypeResult StatusJeannie March MDIMG MAMMOGRAPHY ORDERABLESFinal Result * Hemoglobin A1C (02/26/2024 10:13 AM EST)ComponentValueRef RangeTest Method Analysis TimePerformed AtPathologist SignatureHemoglobin A1C4.54.0 - 6.0 % 02/26/2024 10:13 AM ESTMERCY LABORATORIESEstimated Avg Pkfzkuj33xc/dL 02/26/2024 10:13 AM ESTMERCY LABORATORIESComment: The ADA and AACC recommend providing the estimated average glucose result to permit better patient understanding of their HBA1c result. Specimen (Source)Anatomical Location / LateralityCollection Method / Volume Collection TimeReceived Time02/26/2024 10:13 AM EST02/26/2024 10:14 AM EST Narrative Authorizing ProviderResult TypeResult Sweta Ariat MDCHEMISTRY ORDERABLES Final ResultPerforming OrganizationAddressCity/State/ZIP CodePhone Number [facility] [address] [place] [address], [facility] [phone] [facility] [address] [place], [place] [address] [phone] * (ABNORMAL) Lipid Panel (02/26/2024 10:13 AM EST)ComponentValueRef RangeTest MethodAnalysis TimePerformed AtPathologist SignatureCholesterol, Ljcwh7003 - 199 mg/dL02/26/2024 10:13 AM ESTMERCY LABORATORIESComment: Cholesterol Guidelines: <200 Desirable 200-240 ??Borderline >240 Undesirable HDL51>40 mg/dL02/26/2024 10:13 AM ESTMERCY LABORATORIESComment: HDL Guidelines: <40 Undesirable 40-59 ?Borderline >59 Desirable LDL Pnfdjkyvqbf318(H)0 - 100 mg/dL02/26/2024 10:13 AM ESTMERaroundtheway LABORATORIES Comment: LDL Guidelines: <100 Desirable 100-129 ?? Near to/above Desirable 130-159 ?? Borderline >159 Undesirable Direct (measured) LDL and calculated LDL are not interchangeable tests. Chol/HDL Ratio3.6104/27/2023 10:13 AM ESTMERCY ZDWVMRMDXLRNLxbgejruuvuwd57<150 mg/dL02/26/2024 10:13 AM ESTMERCY LABORATORIESComment: Triglyceride Guidelines: <150 Desirable 150-199 ??Borderline 200-499 ??High >499 Very high Based on AHA Guidelines for fasting triglyceride, January 2012. LORD688 - 30 mg/dL02/26/2024 10:13 AM ESTMERaroundtheway LABORATORIESSpecimen (Source) Anatomical Location / LateralityCollection Method / VolumeCollection Time Received Time02/26/2024 10:13 AM EST02/26/2024 10:14 AM EST Narrative Authorizing ProviderResult TypeResult StatusDougsilviano Arita MDCHEMISTRY ORDERABLES Final ResultPerforming OrganizationAddressCity/State/ZIP CodePhone Number [facility] [address] [phone], [facility] [phone] [facility] [address] [id number], [facility] [phone] * Human papillomavirus (HPV) DNA probe thin prep high risk (12/02/2021 12:02 PM EDT)ComponentValueRef RangeTest MethodAnalysis TimePerformed AtPathologist SignatureSpecimen Description.GENITAL - NOT CBAVERQPW88/22/2022 12:02 PM EDT Mobile AuthenticationHPV Sample.THIN PREP12/02/2021 12:02 PM EDTMHammer & Chisel, Inc. LABORATORIESHPV, Genotype 16Not DetectedNot Ckuikdac96/22/2022 12:02 PM EDT [place] LABORATORIESHPV, Genotype 18Not DetectedNot Uqsttpgt50/22/2022 12:02 PM EDTMHammer & Chisel, Inc. LABORATORIESHPV, High Risk OtherNot DetectedNot Lrjyscaf19/22/2022 12:02 PM EDTMHammer & Chisel, Inc. LABORATORIESHPV, Jlvbkvqnwozpjz23/22/2022 12:02 PM EDTMERCLuminoso LABORATORIESComment: This test amplifies and detects DNA of 14 high-risk HPV types associated with cervical cancer and its precursor lesions (HPV types 16,18, 31, 33, 35, 39, 45, 51, 52, 56, 58, 59, 66, and 68). ? Sensitivity may be affected by specimen collection methods, stage of infection, and the presence of interfering substances. Results should be interpreted in conjunction with other available laboratory and clinical data. A negative high-risk HPV result does not exclude the possibility of future cytologic HSIL or underlying CIN2-3 or cancer. ? This test is intended for medical purposes only and is not valid for the evaluation of suspected sexual abuse or for other forensic purposes. Specimen (Source)Anatomical Location / LateralityCollection Method / Volume Collection TimeReceived TimeSPECIMEN FROM GENITAL SYSTEM / Omdwhch9412/02/2021 12:02 PM EDT Narrative Authorizing ProviderResult TypeResult StatusJeannie March MDHEMATOLOGY ORDERABLESFinal ResultPerforming OrganizationAddressCity/State/[facility] CodePhone Number [address] [place] [address], [facility] [phone] * ANALYTICS MANAGER Cytology (12/02/2021 12:02 PM EDT)ComponentValueRef RangeTest Method Analysis TimePerformed AtPathologist SignatureCytology ReportINTERPRETATION Cervical material, (ThinPrep vial, Imaging-assisted review): Specimen Adequacy: ? Satisfactory for evaluation. ? -Endocervical/transformation zone component is absent. Descriptive Diagnosis: ? Negative for intraepithelial lesion or malignancy. ?? Car Sealer: ?? KIZZY RENEE(ASCP) Electronically Signed Out /12/10/2021 Procedure/Addendum HPV Procedure Report ? Date Ordered: ? 12/04/2021 ? Status: Signed Out ? Date Complete: ? 12/05/2021 ? By: System Interface ? Date Reported: ? 12/05/2021 ? Sample: ??HPV Type 16 ?Result: ?? Not Detected ?Ref Range: (Not Detected) Sample: ??HPV Type 18 ?Result: ?? Not Detected ?Ref Range: (Not Detected) Sample: ??Other High Risk HPV ?Result: ?? Not Detected ?Ref Range: (Not Detected) Sample: ??HPV Interp ?Result: ? Ref Range: (Not Detected) This test amplifies and detects DNA of 14 high-risk HPV types associated with cervical cancer and its precursor lesions (HPV types 16,18, 31, 33, 35, 39, 45, 51, 52, 56, 58, 59, 66, and 68). ? Sensitivity may be affected by specimen collection methods, stage of infection, and the presence of interfering substances. Results should be interpreted in conjunction with other available laboratory and clinical data. A negative high-risk HPV result does not exclude the possibility of future cytologic HSIL or underlying CIN2-3 or cancer. ? This test is intended for medical purposes only and is not valid for the evaluation of suspected sexual abuse or for other forensic purposes. ?? 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 ??[place] [phone] [facility] LABORATORIESSpecimen (Source)Anatomical Location / LateralityCollection Method / VolumeCollection TimeReceived TimeCERVICAL RRWZTGEF42/22/2022 12:02 PM EDT12/03/2021 12:02 PM EDT Narrative Authorizing ProviderResult TypeResult StatusAmankojo March MD PATHOLOGY/CYTOLOGY ORDERABLESFinal ResultPerforming OrganizationAddress City/State/ZIP CodePhone Number [address] [phone] from Last 3 Months or Most Recently Relevant to Health Maintenance Insurance Care Teams Team MemberRelationshipSpecialtyStart DateEnd Dawson Arita MD [address] [place] [address] PCP - GeneralFamily Medicine07/27/19
--- OUTSIDE RECORDS SUMMARY | 2025-04-12 08:28 | XMS_ITS | CCD ---
Author Organization [facility] CliniSyde Care Team Providers Care Manufacturer Agent Name Role Phone Vida Arita Primary Care Provider SANTOS TOMPKINS Consulting Unavailable SANTOS TOMPKINS Attending Unavailable SANTOS TOMPKINS Admitting Unavailable Vida Arita MD Primary Care Provider Vida Arita MD Primary Care Provider [phone] Vida Arita MD Primary Care Provider [phone] Lily Brush Unavailable JEANNIE BANDA Referring Unavailable VIDA ARITA Primary Care Unavailable BEREKET Brush Attending Provider MD Vida Arita Primary Care Provider MD Jeannie Banda Attending Provider MD Vida Arita Attending Provider MD Vida Arita Referring Provider MD Vida Arita Primary Care Provider MD Jeannie Banda Attending Provider MD Vida Arita Attending Provider MD Vida Arita Referring Provider Vida Arita MD Primary Care Provider Vida Arita Primary Care Unavailable Jeannie Banda Attending Unavailable Jeannie Banda Admitting Unavailable VIDA ARITA Primary Care Unavailable HORACIO LOONEY S Referring Unavailable ESSUSANNE MOSELEYH Referring Unavailable VIDA ARITA Primary Care Unavailable VIDA ARITA Referring Unavailable VIDA ARITA Primary Care Unavailable VIDA ARITA Primary Care Unavailable JEANNIE BANDA Referring Unavailable Vida Arita Referring Unavailable Vida Arita Attending Unavailable Silvia Morales Attending Unavaila ble Allergies Allergy ClassificationReported Allergen(s)Allergy TypeDate of OnsetReaction(s) Facility (8 sources)PenicillinsDrug allergy (disorder)50-10-1719Grrqmjhrj or Vertigo, HivesThe [facility] Repository (2 sources)Shellfish; Translations: [shellfish]Drug allergy (disorder)04-23-2013 [facility] Repository (9 sources)ShellfishPropensity to adverse reactions to [id number] [facility] Work Phone: (5 sources)PenicillinsPropensity to adverse reactions to jksx98-57-3825Ttfifcwwo or Vertigo, [facility] HospitalesR[facility] (3 sources)Penicillin; Translations: [Penicillin][facility]ergyHigh[facility] Repository (4 sources)Iodine; Translations: [iodine]Drug Xrlhqnh98-49-2696SdoaUyrepjtbePeoples Hospital (1 source)PenicillinsDrug allergy (disorder)15-88-2976RyonmoyqiOhiohealth [facility] Repository (1 source)Sulfamethoxazole; Translations: [sulfamethoxazole]Drug AllergyMer[facility] Repository Medications Current Medications MedicationDrug Class(es)DatesSig (Normalized)Sig (Original)ciprofloxacin 500 mg oral tablet (2 sources)Quinolone Antimicrobialtake 1 tablet by mouth every twelve hoursCipro 500 MG 1 tablet Orally every 12 hrs Activelevonorgestrel 0.785558 mg/hr intrauterine system (3 sources)Progestin, Progestin-containing Intrauterine DeviceStart: 04-15-2022 levonorgestrel (MIRENA) IUD 52 mg 1 eachminocycline 100 mg oral capsule (3 sources)Tetracycline-class DrugStart: 03-42-9330byigunezlcb (MINOCIN;DYNACIN) 100 MG capsule 04/04/2023 Activephenazopyridine hydrochloride 200 mg oral tablet (4 sources)Start: 22-60-7989cyij 1 tablet by mouth three times daily after mealtime as neededPhenazopyridine HCl 200 MG 1 tablet after meals Orally Three times a day prn urinary symptoms for 3days Oct, Activetake 2 tablets by mouth every eight hoursAZO Urinary Pain Relief 95 MG 2 tablets after meals Orally Three times a day ActivepredniSONE 10 mg oral tablet (2 sources)take 1 tablet by mouth once dailypredniSONE (DELTASONE) 10 MG tablet Take 1 tablet by mouth daily As directed Activespironolactone 50 mg oral tablet (9 sources)Aldosterone AntagonistStart: 90-39-5833cgeunufesdqlmv (ALDACTONE) 50 MG tablet 11/19/2021 Activesulfamethoxazole 800 mg / trimethoprim 160 mg oral tablet (2 sources)Dihydrofolate Reductase Inhibitor Antibacterial, Sulfonamide AntimicrobialStart: 56-79-3759bkra 1 tablet by mouth every twelve hours Sulfamethoxazole-Trimethoprim 800-160 MG 1 tablet Orally Twice a day for 5 days Oct, Active Completed/Discontinued Medications MedicationDrug Class(es)DatesSig (Normalized)Sig (Original)gadoteridol (PROHANCE) injection 13 mL (1 source)Start: 08-05-2024 End: 57-09-0513wnsn 1 dose intravenously once13 mL, IntraVENous, IMG ONCE PRN, 1 dose, Starting on Thu08/05/24 at 1108, Until Thu08/05/24 at 1109, Other Problems Active Problems Problem ClassificationProblemDateDocumented DateEpisodic/ChronicGenitourinary symptoms and ill-defined conditions (1 source)DysuriaEpisodicOther ear and sense organ disorders (3 sources)Sudden idiopathic hearing loss; Translations: [Sudden idiopathic hearing loss, right ear]00-98-5485ThzognzvWaawm ear and sense organ disorders (1 source)Sudden idiopathic hearing loss, right ear; Translations: [Sudden idiopathic hearing loss, right ear]Onset: 77-41-6564TruymzlfAylhn female genital disorders (7 sources)Abnormal uterine bleeding; Translations: [Abnormal uterine and vaginal bleeding, unspecified]Onset: 64-05-1815EhcohrsDtflu screening for suspected conditions (not mental disorders or infectious disease) (4 sources)Patient encounter status; Translations: [Encounter for screening mammogram for malignant neoplasm of breast]Onset: 65-67-1957RthqseqxGvsxt upper respiratory infections (1 source)Acute sinusitis, unspecified; Translations: [ACUTE SINUSITIS UNSPECIFIED]Onset: 20-74-7995LyemhknsHvnwfidgxack (3 sources)CONTACT W/AND (SUSP) EXPOS COVID-19; Translations: [CONTACT W/AND (SUSP) EXPOS COVID-19]Onset: 50-15-0642Wlgxpww tract infections (1 source)Urinary tract infection, site not specifiedEpisodic Past or Other Problems Problem ClassificationProblemDateDocumented DateEpisodic/ChronicContraceptive and procreative management (3 sources)Intrauterine contraceptive device in situ; Translations: [Presence of (intrauterine) contraceptive device]Onset: [id number] Nonmalignant breast conditions (5 sources)Breast lump; Translations: [Unspecified lump in the right breast, unspecified quadrant]Onset: 013395-54-8662DckfwosbEjpahwjjpxvp (1 source)CONTACT W/AND (SUSP) EXPOS COVID-19; Translations: [CONTACT W/AND (SUSP) EXPOS COVID-19]Onset: 06-13-2021 Results Test NameValueInterpretationReference RangeFacilityProvider Letteron 02-07-2025 Provider LetterProvider Letter February 07, [address] [place] [address] : 1980 Dear Darcy , We have been trying to reach you with no success. It is important that you return our call regarding your referral from Dr. Arita to see [facility]. Please call the office upon receiving this letter to schedule a appointment. Also, at the time of your call, please provide us with your current information. Thank you for your prompt attention to this matter. Sincerely, [address], [address] [place], [place] [address] [phone] Doctors Hospital LATRICE DIGITAL SCREEN BILATERALon 96-01-3337GTH LATRICE DIGITAL SCREEN BILATERALEXAMINATION: SCREENING DIGITAL BILATERAL MAMMOGRAM WITH TOMOSYNTHESIS, 09/29/2024 [...] to the patient regarding the results. The [employer] recommends annual mammograms for women 40 years and older. Performing Facility: [place] [address] Interpreted by: Mallika Torres MD Signed by: Mallika Torres MD 10/04/24 Final resultNormalMercy Wayside Emergency Hospital BRAIN W WO CONTRASTon 53-11-9265WLB BRAIN W WO CONTRASTEXAMINATION: MRI OF THE INTERNAL AUDITORY CANALS WITH [...] of the trigeminal nerves appear unremarkable. INTRACRANIAL STRUCTURES/VENTRICLES: There is no acute infarct. No mass [...] Signed by: Ricky Chester MD 08/09/[address] Michaels Medical CenterMRI IAC POSTERIOR FOSSA W WO CONTRASTon 63-13-0177LYY IAC POSTERIOR FOSSA W WO CONTRASTEXAMINATION: MRI OF THE INTERNAL AUDITORY CANALS WITH [...] of the trigeminal nerves appear unremarkable. INTRACRANIAL STRUCTURES/VENTRICLES: There is no acute infarct. No mass [...] Signed by: Ricky Chester MD 08/09/[address] Michaels Medical CenterNicotine, Urineon [place] Cotinine, Ur<50NormalMercy St. Michaels Medical CenterComment on above:Performed By: #### ANICTU #### [facility] [address] [place], [place] [id number] Automobile Upholsterer Apprentice: Murray Galindobasine, Urine<5NormalMercy St. [facility]aels [facility] Comment on above:Performed By: #### ANICTU #### [facility] [address] [place], [place] [id number] Automobile Upholsterer Apprentice: JESSICA Galindootinine, Urine<15NormalMercy St. Michaels Medical Center Comment on above:Performed By: #### ANICTU #### [facility] [address], [place] [id number] Automobile Upholsterer Apprentice: Kwaku Kaur MDNicotine, Urine<15NormalMercy St. Michaels Medical Center Comment on above:Result Comment: (NOTE) INTERPRETIVE INFORMATION: Nicotine and Metabolites, Urine, Quantitative Methodology: Quantitative Liquid Chromatography-Tandem Mass Spectrometry Positive cutoff: Nicotine 15 ng/mL Cotinine 15 ng/mL 0-QS-Plfzywop 50 ng/mL Anabasine 5 ng/mL For medical [...] developed and its performance characteristics determined by [facility]. It has not been cleared or approved by the [place] Food and Drug Administration. This test was performed in a CLIA certified laboratory and is intended for clinical purposes. Performed By: [facility] [address] [place] [address] Cartridge Filler: Wil Enriquez MD, PhD CLIA Number: [id number] By: #### ANICTU #### [facility] [address] [place] [address] Automobile Upholsterer Apprentice: Kwaku Kaur [facility] with Auto Differentialon [id number] (Bld) [#/Vol]0.03 10*3/uLBon Secours Mercy HealthBasophils/100 WBC (Bld)0 %0 - 2 %[facility] HealthEosinophils (Bld) [#/Vol]0.07 10*3/uLBon Secours Mercy HealthEosinophils/100 WBC (Bld)1 %1 - 4 %[facility] HealthErythrocyte distribution width (RBC) [Ratio]14.0 %11.8 - 14.4 %[facility] Hematocrit (Bld) [Volume fraction]45.1 %36.3 - 47.1 %[facility] Hemoglobin (Bld) [Mass/Vol]14.3 g/dL11.9 - 15.1 g/dLBon Secours Mercy Health Immature granulocytes (Bld) [#/Vol]0.03 10*3/uLBon Secours Mercy [facility] Hospital For RehabilitationImmature granulocytes/100 WBC (Bld)0 %0[facility] HealthInterpretation and review of laboratory resultsAbnormalBon Secours Mercy HealthLymphocytes/100 WBC (Bld)19 %Low24 - 43 %[facility] HealthLymphocytes/100 WBC (Bld)1.26 %[facility] HealthMCH (RBC) [Entitic mass]28.3 pg25.2 - 33.5 pgBon Secours Mercy Children'S Hospital For RehabilitationMCHC (RBC) [Mass/Vol]31.7 g/dL28.4 - 34.8 g/dLBon Secours Mercy Children'S Hospital For RehabilitationMCV (RBC) [Entitic vol]89.3 fL82.6 - 102.9 fLVcu Medical Center HealthMonocytes/100 WBC (Bld)12 %3 - 12 %Bon SecTulane–[facility]akeside [facility] HealthMonocytes/100 WBC (Bld)0.80 %Bon [facility] CenterNeutrophils/100 WBC (Bld)68 %High36 - 65 %Bon [facility] CenterNucleated RBC/100 WBC (Bld) [Ratio]0.0 %0.0 per 100 WBCBon [facility] Health Service Hospitaly HealthPlatelet mean volume (Bld) [Entitic vol]10.8 fL8.1 - 13.5 fLBon [facility] HealthPlatelets (Bld) [#/Vol]342 10*3/uLBon SecTulane–Lakeside Hospital HealthRBC (Bld) [#/Vol]5.05 10*6/uL3.95 - 5.11 m/uLBon [facility] CenterSegmented neutrophils/100 WBC (Bld)4.61 %Bon [facility] Medical CenterWBC other (Bld) [#/Vol] 6.8Bon SecAscension All Saints HospitalCBC with Diffon 02-26-2024 Abs. Basophil0.03 k/uLNormal0.00-0.20[facility] HospitalComment on above: Performed By: #### TSH, MG, CP, CDP, GLYHGB, FE, LIPR, FT3, T4, VD25 #### [facility] [address] [place] [address] Automobile Upholsterer Apprentice: Fredy Lei.Imm.Granulocyte0.03 k/uLNormal0.00-0.30[facility] on above:Performed By: #### TSH, MG, CP, CDP, GLYHGB, FE, LIPR, FT3, T4, VD25 #### [facility] [address] [place] [address] Automobile Upholsterer Apprentice: Fredy Lei.Neutrophil (Seg)4.61 k/uLNormal1.50-8.10 [facility] HospitalComgarden city hospital on above:Performed By: #### TSH, MG, CP, CDP, GLYHGB, FE, LIPR, FT3, T4, VD25 #### [place] [address] Automobile Upholsterer Apprentice: Dmitry Tan MDBasophils/100 WBC (Bld)0 %Normal0-2Mer[facility] St. [facility] Medical CenterComgarden city hospital on above:Performed By: #### TSH, MG, CP, CDP, GLYHGB, FE, LIPR, FT3, T4, VD25 #### [place] [address] Automobile Upholsterer Apprentice: Dmitry Tan MDEosinophils (Bld) [#/Vol]0.07 10*3/uLNormal 0.00-0.44[facility] on above:Performed By: #### TSH, MG, CP, CDP, GLYHGB, FE, LIPR, FT3, T4, VD25 #### [place] [address] Automobile Upholsterer Apprentice: SCOTTIE Leiosinophils/100 WBC (Bld)1 %Normal1-4[facility] on above:Performed By: #### TSH, MG, CP, CDP, GLYHGB, FE, LIPR, FT3, T4, VD25 #### [place] [address] Automobile Upholsterer Apprentice: Dmitry Tan MDErythrocyte distribution width (RBC) [Ratio]14.0 %Sqnsht35.8-14.4[facility] on above:Performed By: #### TSH, MG, CP, CDP, GLYHGB, FE, LIPR, FT3, T4, VD25 #### [place] [address] Automobile Upholsterer Apprentice: Dmitry Tan MDHematocrit (Bld) [Volume fraction]45.1 %Normal 36.3-47.1MercConfluence HealthComgarden city hospital on above:Performed By: #### TSH, MG, CP, CDP, GLYHGB, FE, LIPR, FT3, T4, VD25 #### [address] [address] Automobile Upholsterer Apprentice: Dmitry Tan MDHemoglobin (Bld) [Mass/Vol]14.3 g/dLNormal 11.9-15.1[facility] on above:Performed By: #### TSH, MG, CP, CDP, GLYHGB, FE, LIPR, FT3, T4, VD25 #### [address] [address] Automobile Upholsterer Apprentice: Ben Leimature granulocytes/100 WBC (Bld)0 %Normal0 [facility] on above:Performed By: #### TSH, MG, CP, CDP, GLYHGB, FE, LIPR, FT3, T4, VD25 #### [place] [address] Automobile Upholsterer Apprentice: Dmitry Tan MDLymphocytes (Bld) [#/Vol]1.26 10*3/uLNormal 1.10-3.70[facility] Centercy [facility] on above:Performed By: #### TSH, MG, CP, CDP, GLYHGB, FE, LIPR, FT3, T4, VD25 #### [place] [address] Automobile Upholsterer Apprentice: Irma Leimphocytes/100 WBC (Bld)19 %Bsh69-39GlegpCleveland Clinic [facility] Hospital on above:Performed By: #### TSH, MG, CP, CDP, GLYHGB, FE, LIPR, FT3, T4, VD25 #### [address] [address] Automobile Upholsterer Apprentice: DAY LeiCH (RBC) [Entitic mass]28.3 elCioafx32.2-33.5 [facility] on above:Performed By: #### TSH, MG, CP, CDP, GLYHGB, FE, LIPR, FT3, T4, VD25 #### [place] [address] Automobile Upholsterer Apprentice: DAY LeiCHC (RBC) [Mass/Vol]31.7 g/wOHkayro96.4-34.8 [facility] on above:Performed By: #### TSH, MG, CP, CDP, GLYHGB, FE, LIPR, FT3, T4, VD25 #### [place] [address] Automobile Upholsterer Apprentice: DAY LeiCV (RBC) [Entitic vol]89.3 aZRatsvu37.6-102.9 [facility] on above:Performed By: #### TSH, MG, CP, CDP, GLYHGB, FE, LIPR, FT3, T4, VD25 #### [place] [address] Automobile Upholsterer Apprentice: DAY Leionocytes (Bld) [#/Vol]0.80 10*3/uLNormal 0.10-1.20[facility] on above:Performed By: #### TSH, MG, CP, CDP, GLYHGB, FE, LIPR, FT3, T4, VD25 #### [place] [address] Automobile Upholsterer Apprentice: DAY Leionocytes/100 WBC (Bld)12 %Normal3-12[facility] on above:Performed By: #### TSH, MG, CP, CDP, GLYHGB, FE, LIPR, FT3, T4, VD25 #### [address] [address] Automobile Upholsterer Apprentice: Cristina Leiutrophil (Seg)68 %Wyzq98-74AkjnhCleveland Clinic [facility] Hospital on above:Performed By: #### TSH, MG, CP, CDP, GLYHGB, FE, LIPR, FT3, T4, VD25 #### [address] [address] Automobile Upholsterer Apprentice: JERRI Lei Automated0.0 per 100 WBCNormal0.0[facility] on above:Performed By: #### TSH, MG, CP, CDP, GLYHGB, FE, LIPR, FT3, T4, VD25 #### [address] [address] Automobile Upholsterer Apprentice: Jaydon Lei mean volume (Bld) [Entitic vol]10.8 fL Normal8.1-13.5[facility] on above:Performed By: #### TSH, MG, CP, CDP, GLYHGB, FE, LIPR, FT3, T4, VD25 #### [place] [address] Automobile Upholsterer Apprentice: Janna Lei (Bld) [#/Vol]342 10*3/uIVnqtgj814-617 [facility] on above:Performed By: #### TSH, MG, CP, CDP, GLYHGB, FE, LIPR, FT3, T4, VD25 #### [place] [address] Automobile Upholsterer Apprentice: BERNARDA Lei (Bld) [#/Vol]5.05 10*6/uLNormal3.95-5.11 [facility] on above:Performed By: #### TSH, MG, CP, CDP, GLYHGB, FE, LIPR, FT3, T4, VD25 #### [address] [address] Automobile Upholsterer Apprentice: KYLIE Lei (Bld) [#/Vol]6.8 10*3/uLNormal3.5-11.3[facility]y [facility] CenterComgarden city hospital on above:Performed By: #### TSH, MG, CP, CDP, GLYHGB, FE, LIPR, FT3, T4, VD25 #### [address] [address] Automobile Upholsterer Apprentice: JESSICA Leiomp Metabolic Profon 37-97-7591Vihdirg [Mass/Vol]4.9 g/dLNormal3.5-5.2[facility]y [facility] on above:Performed By: #### TSH, MG, CP, CDP, GLYHGB, FE, LIPR, FT3, T4, VD25 #### [address] [address] Automobile Upholsterer Apprentice: Dmitry Tan MDAlbumin/Glob Ratio1.2Sdrbxv4.0-2.5[facility] on above:Performed By: #### TSH, MG, CP, CDP, GLYHGB, FE, LIPR, FT3, T4, VD25 #### [address] [address] Automobile Upholsterer Apprentice: Alexandro Lei Phos79 U/VPvkxnk21-725RggzuCleveland Clinic [facility] Hospital on above:Performed By: #### TSH, MG, CP, CDP, GLYHGB, FE, LIPR, FT3, T4, VD25 #### [address] [address] Automobile Upholsterer Apprentice: Dmitry Tan MDALT [Catalytic activity/Vol]32 U/GJnomoi71-74 [facility] on above:Performed By: #### TSH, MG, CP, CDP, GLYHGB, FE, LIPR, FT3, T4, VD25 #### [address] [address] Automobile Upholsterer Apprentice: Yoli Lei gap [Moles/Vol]13 mmol/LNormal9-16[facility] on above:Performed By: #### TSH, MG, CP, CDP, GLYHGB, FE, LIPR, FT3, T4, VD25 #### [address] [address] Automobile Upholsterer Apprentice: Dmitry Tan MDAST [Catalytic activity/Vol]26 U/CNhsekq78-79 [facility] on above:Performed By: #### TSH, MG, CP, CDP, GLYHGB, FE, LIPR, FT3, T4, VD25 #### [address] [address] Automobile Upholsterer Apprentice: Dmitry Tan MDBilirubin [Mass/Vol]0.7 mg/dLNormal0.0-1.2MMercy Hospital on above:Performed By: #### TSH, MG, CP, CDP, GLYHGB, FE, LIPR, FT3, T4, VD25 #### [facility] [employer] [address] [place] [address] Automobile Upholsterer Apprentice: JESSICA Leialcium [Mass/Vol]10.5 mg/dLHigh8.6-10.4[facility] on above:Performed By: #### TSH, MG, CP, CDP, GLYHGB, FE, LIPR, FT3, T4, VD25 #### [facility] [employer] [address] [place] [address] Automobile Upholsterer Apprentice: Dmitry Tan MDChloride [Moles/Vol]101 mmol/PEuqhjf57-031IgxpuCleveland Clinic [facility] on above:Performed By: #### TSH, MG, CP, CDP, GLYHGB, FE, LIPR, FT3, T4, VD25 #### [facility] [employer] [address] [place] [address] Automobile Upholsterer Apprentice: Dmitry Tan MDCO2 [Moles/Vol]23 mmol/CMuhxdb60-08CvbxzC[facility] Clinic [facility] on above:Performed By: #### TSH, MG, CP, CDP, GLYHGB, FE, LIPR, FT3, T4, VD25 #### [address] [address] Automobile Upholsterer Apprentice: JESSICA Leireatinine [Mass/Vol]1.0 mg/dLHigh0.6-0.9[facility] HospitalComment on above:Performed By: #### TSH, MG, CP, CDP, GLYHGB, FE, LIPR, FT3, T4, VD25 #### [address] [address] Automobile Upholsterer Apprentice: Dmitry Tan MDGFR/1.73 sq M.predicted among non-blacks MDRD (S/P/Bld) [Vol rate/Area]72 mL/min/{1.73_m2}Normal>60[facility] Comment on above:Result Comment: These results are not intended for [...] or following therapy that affects renal tubular secretion.Performed By: #### TSH, MG, CP, CDP, GLYHGB, FE, LIPR, FT3, T4, VD25 #### [address] [address] Automobile Upholsterer Apprentice: Dmitry Tan MDGlucose [Mass/Vol]81 mg/sGKurhxo64-25FtscpEvergreenHealth Medical CenterComment on above:Performed By: #### TSH, MG, CP, CDP, GLYHGB, FE, LIPR, FT3, T4, VD25 #### [address] [address] Automobile Upholsterer Apprentice: RIVKA Leiotassium [Moles/Vol]4.3 mmol/LNormal3.7-5.3 [facility] HospitalComment on above:Performed By: #### TSH, MG, CP, CDP, GLYHGB, FE, LIPR, FT3, T4, VD25 #### [employer] [address] [place] [address] Automobile Upholsterer Apprentice: RIVKA Leirotein [Mass/Vol]8.1 g/dLNormal6.6-8.7[facility] on above:Performed By: #### TSH, MG, CP, CDP, GLYHGB, FE, LIPR, FT3, T4, VD25 #### [employer] [facility] [address] [place] [id number] Automobile Upholsterer Apprentice: UMESH Leiodium [Moles/Vol]137 mmol/LSvdymb780-853HzjgxCleveland Clinic [facility]on Hospital on above:Performed By: #### TSH, MG, CP, CDP, GLYHGB, FE, LIPR, FT3, T4, VD25 #### [employer] [address] [place] [address] Automobile Upholsterer Apprentice: Dmitry Tan MDUrea nitrogen [Mass/Vol]18 mg/dLNormal6-20[facility] on above:Performed By: #### TSH, MG, CP, CDP, GLYHGB, FE, LIPR, FT3, T4, VD25 #### [employer] [address] [place] [address] Automobile Upholsterer Apprentice: JESSICA Leiomprehensive Metabolic Panelon 02-26-2024 Albumin [Mass/Vol]4.9 g/dL3.5 - 5.2 g/dLBon [facility] CenterAlbumin/Globulin [Mass ratio]1.5 {ratio}1.0 - 2.5Bon [facility] HealthALP [Catalytic activity/Vol]79 U/L35 - 104 U/LBon [facility] HospitalEverpay HealthALT [Catalytic activity/Vol]32 U/L10 - 35 U/LBon [facility] Medical CenterAnion gap [Moles/Vol]13 mmol/L9 - 16 mmol/LBon [facility] HealthAST [Catalytic activity/Vol]26 U/L10 - 35 U/LBon SecTulane–Lakeside Hospital HealthBilirubin [Mass/Vol]0.7 mg/dL0.0 - 1.2 mg/dLBon SecTulane–Lakeside Hospital HealthCalcium [Mass/Vol]10.5 mg/dLHigh8.6 - 10.4 mg/dLBon SecTulane–Lakeside Hospital HealthChloride [Moles/Vol]101 mmol/L98 - 107 mmol/LBon [facility] HealthCO2 [Moles/Vol]23 mmol/L20 - 31 mmol/LBon [facility] HealthCreatinine [Mass/Vol]1.0 mg/dLHigh0.6 - 0.9 mg/dLBon [facility] HealthEst, Glom Filt Rate72- PINFBon [facility] CenterComment on above: These results are not intended [...] therapy that affects renal tubular secretion. Glucose [Mass/Vol]81 mg/dL74 - 99 mg/dLBon [facility] HealthPotassium [Moles/Vol]4.3 mmol/L3.7 - 5.3 mmol/LBon [facility] HealthProtein [Mass/Vol] 8.1 g/dL6.6 - 8.7 g/dLBon [facility] CenterSodium [Moles/Vol]137 mmol/L136 - 145 mmol/LBon [facility] HealthUrea nitrogen [Mass/Vol]18 mg/dL6 - 20 mg/dL Bon [facility] Medical CenterHemoglobin A1Con 98-91-9969WmO1z (Bld) [Mass fraction] 4.5 %Normal4.0-6.0Bon [facility] Medical CenterComment on above:Performed By: #### TSH, MG, CP, CDP, GLYHGB, FE, LIPR, FT3, T4, VD25 #### [facility] [address] [place], [place] [id number] Automobile Upholsterer Apprentice: Elena Lei glucose Estimated from glycated hemoglobin (Bld) [Mass/Vol]82 mg/dLBon [facility] [employer] TechnologyFort Belvoir Community HospitalComment on above:The ADA and AACC recommend providing the estimated average glucose result to permit better patient understanding of their HBA1c result. Bon [facility] Medical CenterGlucose [Mass/Vol]82 mg/dLNormalCleveland Clinic [facility] Comment on above:Result Comment: The ADA and AACC recommend providing the estimated average glucose result to permit better patient understanding of their HBA1c result.Performed By: #### TSH, MG, CP, CDP, GLYHGB, FE, LIPR, FT3, T4, VD25 #### [facility] [address] [place] [address] Automobile Upholsterer Apprentice: Alba Lei 40-19-0050Hzjf [Mass/Vol]69 ug/dL37 - 145 ug/dLBon [facility] Medical CenterIron [Mass/Vol]69 ug/nPFsxptl66-469PnolxCleveland Clinic Marymount HospitalComment on above:Performed By: #### TSH, MG, CP, CDP, GLYHGB, FE, LIPR, FT3, T4, VD25 #### [employer] [address] [place] [address] Automobile Upholsterer Apprentice: Dmitry Tan MDLiplynda Panelon 99-87-8703Qvfuwzqlbpp [Mass/Vol] 183 mg/dL0 - 199 mg/dLBon [facility] Natcore TechnologyFort Belvoir Community HospitalComment on above: Cholesterol Guidelines: <200 Desirable 200-240 Borderline >240 Undesirable Cholesterol in HDL [Mass/Vol]51 mg/dL40 - PINF mg/dLBon [facility] CenterPeek Write.my Comment on above: HDL Guidelines: <40 Undesirable 40-59 Borderline >59 Desirable Cholesterol in LDL [Mass/Vol]114 mg/dLHigh0 - 100 mg/dLBon [employer] Comment on above: LDL Guidelines: <100 Desirable 100-129 Near to/above Desirable 130-159 Borderline >159 Undesirable Direct (measured) LDL and calculated LDL are not interchangeable tests. Cholesterol in VLDL [Mass/Vol]18 mg/dL1 - 30 mg/dLBon [facility] Adallom Cholesterol.total/Cholesterol in HDL [Mass ratio]3.6 {ratio}Bon [facility] CenterTriglyceride [Mass/Vol]91 mg/dLNINF - 150 mg/dLBon [facility] Comment on above: Triglyceride Guidelines: <150 Desirable 150-199 Borderline 200-499 High >499 Very high Based on AHA Guidelines for fasting triglyceride, January 2012. 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: JESSICA Leiholesterol in HDL [Mass/Vol]51 mg/dLNormal>40 [facility] on above:Result Comment: HDL Guidelines: <40 Undesirable 40-59 Borderline >59 DesirablePerformed By: #### TSH, MG, CP, CDP, GLYHGB, FE, LIPR, FT3, T4, VD25 #### [employer] [address] [place] [address] Automobile Upholsterer Apprentice: JESSICA Leiholesterol in LDL [Mass/Vol]114 mg/dLHigh0-100 [facility] on above:Result Comment: LDL Guidelines: <100 Desirable 100-129 Near to/above Desirable 130-159 Borderline >159 Undesirable Direct (measured) LDL and calculated LDL are not interchangeable tests.Performed By: #### TSH, MG, CP, CDP, GLYHGB, FE, LIPR, FT3, T4, VD25 #### [employer] [address] [place] [address] Automobile Upholsterer Apprentice: JESSICA Leiholesterol in VLDL [Mass/Vol]18 mg/dLNormal1-30 [facility] on above:Performed By: #### TSH, MG, CP, CDP, GLYHGB, FE, LIPR, FT3, T4, VD25 #### [employer] [address] [place] [address] [id number] Automobile Upholsterer Apprentice: Zak Lei.total/Cholesterol in HDL [Mass ratio]3.6 {ratio}NormalMerTri-State Memorial HospitalComment on above:Performed By: #### TSH, MG, CP, CDP, GLYHGB, FE, LIPR, FT3, T4, VD25 #### [facility] CenterKZO Innovations [address] [place] [address] Automobile Upholsterer Apprentice: Dmitry Tan MDTriglyceride [Mass/Vol]91 mg/dLNormal<150Mercy St. Michaels Medical CenterComment on above:Result Comment: Triglyceride Guidelines: <150 Desirable 150-199 Borderline 200-499 High >499 Very high Based on AHA Guidelines for fasting triglyceride, January 2012.Performed By: #### TSH, MG, CP, CDP, GLYHGB, FE, LIPR, FT3, T4, VD25 #### [facility] Medical CenterKZO Innovations [address] [place] [address] [id number] Automobile Upholsterer Apprentice: Juan Leignesiumon 13-98-6729Cwkvztprw [Mass/Vol]2.3 mg/dL1.6 - 2.6 mg/dLBon [facility] CenterMagnesium [Mass/Vol]2.3 mg/dLNormal 1.6-2.6[facility]. Michaels Medical CenterComment on above:Performed By: #### TSH, MG, CP, CDP, GLYHGB, FE, LIPR, FT3, T4, VD25 ####[facility] Medical CenterEverpay Okgsrhy[address] [place] [address] [id number] Lab Director: Steve Lei [facility] 44-34-7140Qszpapnoodigyj and review of laboratory resultsAbnormal [place] [address], Freeon 88-21-7616Ybxa T3 [Mass/Vol]2.90 pg/mL2.00 - 4.40 pg/mLBon [facility] CenterFr T3 [Mass/Vol] 2.90 pg/mLNormal2.00-4.40[facility] HospitalComment on above:Performed By: #### TSH, MG, CP, CDP, GLYHGB, FE, LIPR, FT3, T4, VD25 #### [employer] [facility] [place] [address] Automobile Upholsterer Apprentice: Dmitry Tan MDT4on 46-02-1730R6 [Mass/Vol]9.6 ug/dL4.5 - 11.7 ug/dLBon [facility] CenterBon [facility] CenterTSHon 76-94-5511VQH Qn1.35 m[IU]/LBon [facility] CenterThyroid Stim. Horm.on 12-89-7032Tkmxwnx Stim. Horm.1.35 uIU/mLNormal0.27-4.20[facility] HospitalComgarden city hospital on above:Performed By: #### TSH, MG, CP, CDP, GLYHGB, FE, LIPR, FT3, T4, VD25 ####[employer] [place], [place] [id number] Lab Director: Dmitry Tan MDThyroxine T4on 00-78-1120C5 [Mass/Vol]9.6 ug/dLNormal4.5-11.7[facility] on above:Performed By: #### TSH, MG, CP, CDP, GLYHGB, FE, LIPR, FT3, T4, VD25 ####[employer] [place] [address] Lab Director: Dmitry Tan MDVitamin D 25 Hydroxyon 34-34-644123126683-fqvdfghpmppftt D3 [Mass/Vol]62.5 ng/mL30.0 - 100.0 ng/mLSentara Northern Virginia Medical CenterComgarden city hospital on above: Reference Range: Vitamin D status Range Deficiency <20 ng/mL Mild Deficiency 20-30 ng/mL Sufficiency 30-100 ng/mL Toxicity >100 ng/mL Vitamin D 25 OHon 67-22-8110Pceyyms D 25 OH62.5 ng/mGUrlwpv82.0-100.0[facility] HospitalComment on above:Result Comment: Reference Range: Vitamin D status Range Deficiency <20 ng/mL Mild Deficiency 20-30 ng/mL Sufficiency 30-100 ng/mL Toxicity >100 ng/mLPerformed By: #### TSH, MG, CP, CDP, GLYHGB, FE, LIPR, FT3, T4, VD25 ####[place] [address] [place] [id number] [facility] Director: Dior Lei 09-27-6723EKpvhqqbh: [id number] Received: 07/10/23 Status: DEACON Req Num: [id number] Spec Type: Surgical Subm Dr: Dafne Cordero MD Tissues: A BREAST CORE NO CALCS (RT BREAST TISSUE) Procedures: HE/2, Gross/Micro L4 Age/ Patient Sex Location Account Attending Physician Darcy Lemons 43/F [place] [id number] Jeannie Banda MD SPEC NUM: [id number] RECD: 07/10/23 STATUS: DEACON HAGEN NUM: [id number] GILMER: 07/10/[address]: Dafne Cordero MD ENTERED: 07/10/[address] [facility] [address]: Jeannie Banda MD SPEC TYPE: Surgical DEPT: S [...] Cold Ischemic Time: 0.05 Formalin Fixation Time: [id number] Specimen: [id number] Received: 07/10/23 Status: DEACON Hagen Num: [id number] Spec Type: Surgical Subm Dr: Dafne Cordero MD Tissues: A BREAST CORE NO CALCS (RT BREAST TISSUE) Procedures: HE/Xenia, Diego/Katie L4 Patient: Darcy Lemons [id number] (Continued) Specimen: [id number] Received: 07/10/23 (Continued) Signed (signature on file) Lyssa Thorne MD 07/13/23 1701 Specimen: [id number] Received: 07/10/23 Status: DEACON Hagen Num: [id number] Spec Type: Surgical Subm Dr: Dafne Cordero MD Tissues: A BREAST CORE NO CALCS (RT BREAST TISSUE) Procedures: HE/2, Gross/Micro L4 Patient: Darcy Lemons [id number] (Continued) Specimen: Received: 07/10/23 (Continued) CPT Codes 15311 Specimen: [id number] Received: 07/10/23-1223 Status: DEACON Hagen Num: [id number] Spec Type: Surgical Subm Dr: Dafne Cordero MD Tissues: A BREAST CORE NO CALCS (RT BREAST TISSUE) Procedures: HE/2, Gross/Micro L4 Patient: Darcy Lemons [id number] (Continued) Signed (signature on file) Lyssa Thorne MD 07/13/[address] [place] [address] Physician GroupUS breast ndl core biopsy RTon 89-55-6881BP [place] [address] Ultrasound Report Signed with Addenda Patient: Darcy Lemons MR#: [id number] : 1980 Acct:[id number] Age/Sex: 43 / F ADM Date: 07/10/23 Loc: [facility] Room: Type: [facility] Attending Dr: Jeannie Banda MD Ordering Provider: Jeannie Banda MD Date of Service: 07/10/23 US/US breast ndl core biopsy RT: RT BREAST MASS Copies to: Jeannie Banda MD ADDENDUM 1 The patient's pathology results for the right breast biopsy show mature fibrofatty tissue suggesting lipoma. This is concordant with the imaging appearance. Impression dictated by: Dafne Cordero M.D.07/14/2023 9:01 AM Dictation Location: [place] [address] Addendum Dictated By: MD Dafne Cordero Addendum [...] Dafne Cordero M.D.07/10/2023 11:58 AM Dictation Location: [facility] Tech: Gaby Campbell Transcribed By: ASRAH 07/10/23 1158 Dictated By: Dafne Cordero MD 07/10/23 1113 Signed By: 07/10/23 1158[facility] Physician GroupUrinalysis - AUTOMATEDon 12-23-1744Larkgrnzlp (U)CLEARKythera Biopharmaceuticals Other Bilirubin Ql (U)NegativeKythera Biopharmaceuticals Other Color (U)LIGHT YELLOWNorth 3yy game platform Other Glucose Ql (U)NegativeChampaign 3yy game platform Other Hemoglobin Ql (U)TRACE-INTACTChampaign 3yy game platform Other Ketones Ql (U)NegativeChampaign 3yy game platform Other Leukocyte esterase Test strip Ql (U)SMALLNoranken jordan [facility] 3yy game platform Other Nitrite Ql (U)NegativeChampaign 3yy game platform Other pH (U)7.0 [pH][facility] [employer] Other Protein Ql (U)NegativeChampaign 3yy game platform Other Specific gravity (U) [Rel density]1.020[place] 3yy game platform Other Urobilinogen (U) [Mass/Vol]0.2 mg/dLChampaign 3yy game platform Other Urinalysis - AUTOMATEDChampaign 3yy game platform Other MAM LATRICE DIGITAL DIAGNOSTIC UNILATERAL RIGHTon 70-13-2911Rjjvabdkf Study observation (narrative)[facility] AT VCUWrite.my Work Phone: No Panel Informationon 21-96-7070Mfoookkrai noted asymmetry in the retroareolar right breast [...] to the patient regarding the results. The [place] [employer] recommends annual mammograms for women 40 years and older.[facility] RIS CONSOLIDATEDEXAMINATION: DIAGNOSTIC DIGITAL RIGHT BREAST MAMMOGRAM WITH TOMOSYNTHESIS; [...] Unremarkable sonographic appearance of the right nipple. [facility] CONSOLIDATEDNo Panel InformationOrdered By: Michelle Groves on 03-31-2022 [employer] Phone: US BREAST LIMITED RIGHTon 84-32-1334Vcacntnsi Study observation (narrative)[employer] Phone: mam LATRICE DIGITAL SCREEN BILATERALon . Right breast: Small asymmetry in the retroareolar right breast, seen on CC view. Diagnostic mammogram and possible ultrasound are recommended. 2. Left breast: No mammographic findings of malignancy. This breast can continue to be followed with annual screening mammogram. BI-RADS 0 BIRADS: BIRADS - CATEGORY 0 Incomplete: Needs Additional Imaging Evaluation OVERALL ASSESSMENT - INCOMPLETE:NEED ADDITIONAL IMAGING EVALUATION.[facility] CONSOLIDATEDEXAMINATION: SCREENING DIGITAL BILATERAL MAMMOGRAM WITH TOMOSYNTHESIS, 02/14/2022 [...] distortion, or calcification in the left breast. [facility] CONSOLIDATEDRadiology Study observation (narrative)[employer] Phone: mam LATRICE DIGITAL SCREEN BILATERALOrdered By: Michelle Groves on 54-92-2362IHE [employer] Work Phone: Estradiolon 76-59-4528Ijryeucnk81.5 pg/mL27 - 314 pg/mLTEMPE ST. LUKE'S [facility]ITAL PharmiWeb SolutionsCenterpointe Hospitalment on above: FEMALES: Normally menstruating Luteal phase 33-298 Follicular phase 27-156 Midcycle phase 48-314 Postmenopausal (untreated) 5-50 Fulvestrant treatment will show an increased estradiol concentration with this methodology. Alternate methodologies are available upon request. Follicle Stimulating Hormoneon 72-53-8688XDV0.6BON PharmiWeb SolutionsComment on above:Reference Range: Male: 1.5-12.4 Ovulating Female: Follicular Phase 3.5-12.5 Ovulation Phase 4.7-21.5 Luteal Phase 1.7-7.7 Postmenopausal Female: 25.8-134.8 Lipid Panelon 71-30-3324Wvhibiivijg [Mass/Vol]219 mg/dLHighNINF - 200 mg/dLBON Pharmi[employer] SolutionsComment on above: Cholesterol Guidelines: <200 Desirable 200-240 Borderline >240 Undesirable Cholesterol in HDL [Mass/Vol]67 mg/dL40 - PINF mg/dLB [employer] Comment on above: HDL Guidelines: <40 Undesirable 40-59 Borderline >59 Desirable Cholesterol in LDL [Mass/Vol]136 mg/dLHigh0 - 130 mg/dLB [employer] Comment on above: LDL Guidelines: <100 Desirable 100-129 Near to/above Desirable 130-159 Borderline >159 Undesirable Direct (measured) LDL and calculated LDL are not interchangeable tests. Cholesterol.total/Cholesterol in HDL [Mass ratio]3.3 {ratio}NINF - 5BON Pharmi[employer] SolutionsInterpretation and review of laboratory resultsAbnormalBON PharmiWeb SolutionsTriglyceride [Mass/Vol]78 mg/dLNINF - 150 mg/dLBON PharmiWeb SolutionsComment on above: Triglyceride Guidelines: <150 Desirable 150-199 Borderline 200-499 High >499 Very high Based on AHA Guidelines for fasting triglyceride, January 2012. BON Pharmi[employer] SolutionsLuteinizing Hormoneon 25-03-9144ZA4.1BLewisGale Hospital Alleghanyment on above:Reference Range: Male: 1.7-8.6 Ovulating Female: Follicular Phase 2.4-12.6 Ovulation Phase 14.0-95.6 Luteal Phase 1.0-11.4 Postmenopausal Female: 7.7-58.5 No Panel Informationon 44-88-9101ZXI [facility]PITALTSH with Reflexon 59-87-6970SFB Qn3.08 m[IU]/LBON [facility] HOSPITALTestosterone, Freeon 71-30-5952Zjiypkkbaringv and review of laboratory resultsAbnormalBON MARION HOSPITALSex Hormone Jpkoqig53 nmol/L30 - 135 nmol/LBON [facility] [employer] Testosterone [Mass/Vol]8 ng/dLLow20 - 70 ng/dLBON [facility] [employer] Testosterone, Freepg/mLLow1.3 - 9.2 pg/mLSentara [place] [facility] Hospital on above:The concentration of free testosterone is derived from a mathematical expression based on the constant for the binding of testosterone to albumin and/or sex hormone binding globulin. [facility] Shasta CrystalsHemoglobin A1Con 19-96-6380Bmxvbox [Mass/Vol]91 mg/dLBON [facility] on above:The ADA and AACC recommend providing the estimated average glucose result to permit better patient understanding of their HBA1c result. HbA1c (Bld) [Mass fraction]4.8 %4 - 6 %COMMUNITY HEALTH SYSTEMSProlactinon 90-17-1779Mxjzrdziy22.76 ng/mL4.79 - 23.3 ng/mLSentara [place] General Hospital on above:The presence of macroprolactin may cause interference in female patients with various endocrinological diseases or during . [facility] HOSPITALNo Panel Informationon . Myometrial appearance that can be seen with adenomyosis. 2. Normal sonographic appearance of the ovaries. [facility] RIS CONSOLIDATEDEXAMINATION: PELVIC ULTRASOUND 01/13/2022 3:34 pm TECHNIQUE: Transabdominal [...] [facility] Spencer Eaton MD - 01/13/2022 EXAMINATION: PELVIC ULTRASOUND 01/13/2022 [...] 2. Normal sonographic appearance of the ovaries. [employer] Phone: radiology Study observation (narrative)[employer] Phone: No Panel InformationOrdered By: Spencer Maddox on 54-18-6674NVY [employer] Phone: HPV DNA High Riskon 25-53-9766BBV InterCorey HospitalComment on above:Result Comment: This test amplifies and detects DNA [...] suspected sexual abuse or for other forensic purposes.Performed By: #### HPVH #### [employer] [address] [place], [place] [id number] Automobile Upholsterer Apprentice: Dmitry Tan MDHPV Type 16Not detectedVeterans Affairs Roseburg Healthcare SystemComment on above:Performed By: #### HPVH #### [employer] [address] [place] [address] [id number] Automobile Upholsterer Apprentice: Dmitry Tan MDHPV Type 18Not detectedNoPhysicians & Surgeons HospitalComment on above:Performed By: #### HPVH #### [employer] [address] [place] [address] [phone] Automobile Upholsterer Apprentice: Dmitry Tan MDOther High Risk HPVNot detectedNoPhysicians & Surgeons HospitalComment on above:Performed By: #### HPVH #### [employer] [address] [place] [address] Automobile Upholsterer Apprentice: AVINASH Lei DNA High Riskon 00-93-3131Hktail.GENITAL - NOT SPECIFIEDNormalWilson Memorial HospitalComment on above:Performed By: #### HPVH #### [facility] [address] [place] [address] Automobile Upholsterer Apprentice: AVINASH Lei Sample.THIN PREPNoProtestant Deaconess HospitalComment on above:Performed By: #### HPVH #### [facility] [address] [place] [address] Automobile Upholsterer Apprentice: JESSICA Leiytologyon 09-79-6880Fkfkgfqi(NOTE) INTERPRETATION Cervical material, (ThinPrep vial, Imaging-assisted review): Specimen Adequacy: Satisfactory for evaluation. -Endocervical/transformation zone component is absent. Descriptive Diagnosis: Negative for intraepithelial lesion or malignancy. 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 Co-Test: ThinPrep Pap with high risk HPV testing GYNECOLOGIC CYTOLOGY REPORT Patient Name: DARCY LEMONS [facility] Rec: [id number] Path Number: [id number] [facility] [employer] CONSULT[facility] PATHOLOGISTS [facility] [address] [place] [phone] NoalMerSpecialty Hospital of Southern CaliforniaComment on above: Performed By: #### PPPVP #### [employer] [address] [place] [address] Automobile Upholsterer Apprentice: Dmitry Tan MDCovid-19 PCR (CVDTB)on 40-71-6953ALQA-CoV-2 (COVID-19) RNA CHAVA+probe Ql (Unsp spec)Not detectedNormalNOT DETECTEDThe [facility] HospitalComment on above:Result Comment: This test is not yet approved or cleared by the [place] FDA. When there are no FDA-approved or cleared tests available, and other criteria are met, FDA can make tests available under an emergency access mechanism called an Emergency Use Authorization (EUA). The EUA for this test is supported by the Refinery Operator Assistant of Health and Human Service's (HHS's) declaration [...] of clinical signs and symptoms consistent with SARS-CoV-2.Performed By: #### CVDTBH #### [facility] [address] [place], [place] [address] Dr[address] Grant NgoLIVINGST[facility] Auto Differentialon 49-65-6988Wrftphypx (Bld) [#/Vol]0.03 10*3/[facility] [place], KYBasophils/100 WBC (Bld)0 %0 - 2 %[facility], [place] Differential TypeNOT REPORTEDOhiohealth [facility] Hospital [place], KYEosinophils (Bld) [#/Vol]0.35 10*3/[facility] [place], KYEosinophils/100 WBC (Bld)5 %High1 - 4 %[facility], KYErythrocyte distribution width (RBC) [Ratio]13.2 %11.8 - 14.4 %[facility], KYHematocrit (Bld) [Volume fraction]36.1 %Low36.3 - 47.1 %[facility], KYHemoglobin (Bld) [Mass/Vol]11.3 g/dLLow11.9 - 15.1 g/dLSelect Medical [facility], KYImmature granulocytes (Bld) [#/Vol]0 %0[facility], [place] Immature granulocytes (Bld) [#/Vol]10*3/[facility], KYInterpretation and review of laboratory resultsAbnormMemorial Hospital, KYLymphocytes (Bld) [#/Vol]2.18 10*3/[facility] [place], KYLymphocytes/100 WBC (Bld)32 %24 - 43 % [facility], KYMCH (RBC) [Entitic mass]29.1 pg25.2 - 33.5 pgSelect Medical [facility], KYMCHC (RBC) [Mass/Vol]31.3 g/dL28.4 - 34.8 g/dLSelect Medical [facility], KYMCV (RBC) [Entitic vol]93.0 fL82.6 - 102.9 fLSelect Medical [facility], KYMonocytes (Bld) [#/Vol]0.70 10*3/[facility]- [place], KYMonocytes/100 WBC (Bld)10 %3 - 12 %[facility], KYPlatelet mean volume (Bld) [Entitic vol]11.6 fL8.1 - 13.5 fLSelect Medical [facility], KYPlatelets (Bld) [#/Vol]260 10*3/uLSelect Medical [facility], KYPlatelets (Bld) [#/Vol]NOT REPORTEDSelect [facility], SDRBC (Bld) [#/Vol]3.88 10*6/uLLow 3.95 - 5.11 m/[facility], SDRBC morphology finding Nom (Bld)NOT REPORTED [facility], AIDENSegmented neutrophils/100 WBC (Bld)53 %36 - 65 %[facility], AIDENSegs Absolute3.61[facility], AIDENWBC (Bld) [#/Vol]6.9 10*3/uL [facility], KYWBC (Bld) [#/Vol]0.0 10*3/uL0.0 per 100 WBCSelect Medical [facility], AIDENWBC MorphologyNOT REPORTEDSelect [facility], [place] Vital Signs Date TimeVital SignValuePerforming IkhphcdqkNfwdsnrp50-88-5134 11:10-0400Body ttzkafupatu45.2 [degF]MD Vida Arita Work Phone: [phone] [place], [place] 0436303-29-2024 11:10-0400 Diastolic blood eskncsfp23 mm[Hg]MD Vida Arita Work Phone: [phone] [place], [place] 5411303-29-2024 11:10-0400 Heart rate85 /minMD Vida Arita Work Phone: [phone] [place], [place] 5411303-29-2024 11:10-0400 Respiratory rate18 /minMD Vida Arita Work Phone: [phone]-[address] [place], [place] 0436303-29-2024 11:10-0400 SaO2% (BldA) [Mass fraction]99 %MD Vida Arita Work Phone: [phone]03-29-2024 11:10-0400 Systolic blood dxnfjdye677 mm[Hg]MD Vida Arita Work Phone: [phone]02-16-2024 14:30-0500 Diastolic blood pxsgtawi12 mm[Hg]MD Vida Arita Work Phone: [phone]02-16-2024 14:30-0500 Heart rate75 /minMD Vida Arita Work Phone: [facility]02-16-2024 14:30-0500 Systolic blood cjqgubwo678 mm[Hg] Vida Arita Work Phone: [facility]07-29-2023 11:30-0400 Body sovlje695.56 cmLjosé miguel Brush Other [employer] Other 07-29-2023 11:30-0400Body mass index (BMI) [Ratio] 25.26 kg/x7MkfxogLily Brush Other [employer] Other 07-29-2023 11:30-0400Body jqauowhxzwh30.4 [degF]Lily Brush Other [employer] Other 07-29-2023 11:30-0400Body .77 kgLily Brush Other [employer] Other 07-29-2023 11:30-0400Diastolic blood mm[Hg] Lily Brush Other [employer] Other 07-29-2023 11:30-0400Respiratory rate16 /minLily Brush Other [employer] Other 07-29-2023 11:30-8994NdU8% (BldA) [Mass fraction]100 % Lily Brush Other [employer] Other 07-29-2023 11:30-0400Systolic blood zyblbffx084 mm[Hg] Lily Brush Other [employer] Other Encounters Encounter DateEncounter TypeCare ProviderFacilityStart: 37-74-4266irzxzhjllb Silvia Muñiz SarminiFacility:[facility]a DHStart: 93-38-6214sodnuoezfaBhxolhi HoyFacility:[facility] DHStart: 52-76-1404dmxuahhzmeMmimlwi HoyFacility:[facility] Start: 09-29-2024 End: 60-35-6365riinbwqkspWRNBBYX M HOYMercy Bagley HospitalStart: 08-05-2024 End: 47-67-4404iypxtfvimiFEROGSZ M HOYMercy Madigan Army Medical Centertart: 08-05-2024 End: 21-39-3103Ndzijwmiws hospital visit by physicianSta Ino [facility] MRIComment on above: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, unspecified hearing status on contralateral sideStart: 07-29-2024 End: 44-48-4892ppenvrqbsoSJOQL ESLAMIMercy St. Anne HospitalStart: 07-29-2024 Encounter for other preprocedural examinationDOBarberton Citizens Hospital Start: 07-29-2024 End: 66-10-0553Eynqojo encounter statusVida Arita MD Work Phone: [facility] CenterStart: 07-29-2024 End: 85-92-2073Vzehclwszt hospital visit by Mega Arita MD Work Phone: [facility] LaboratoryComment on above:Pre-op testingStart: 02-26-2024 End: 29-42-5486ioptykghjoNWVDWCL M HOYMercy Madigan Army Medical Centertart: 02-26-2024 End: 55-91-2601Tkgiaoixf for general adult medical examination without abnormal findingsDOLOLA [facility] Medical Centertart: 02-26-2024 End: 13-53-5351Gslnnbnxkm hospital visit by Mega Arita MD Work Phone: [facility] LaboratoryStart: 07-10-2023 End: 64-65-1938Ywwnxthox to same day surgery centerMD Vida Arita Work Phone: [facility]-Ultrasound Cntr for Breast CarStart: 07-10-2023 End: 97-73-6884tbfllzlsqiDA Vida Arita Work Phone: [facility] Work Phone: Start: 94-79-3323Hvmxkgrjqd RecurringMD Vida Arita Work Phone: [facility]-Infusion Therapy - O/P Work Phone: Start: 05-29-2023 End: 12-50-6012tnydtqbtbqMC Vida Redman Hoaston Work Phone: [facility] Work Phone: Start: 05-29-2023 End: 10-87-2639Spxfnuq encounter procedureMD Vida Arita Work Phone: [facility]-Center for Breast Care Work Phone: Start: 11-10-2022 End: 12-98-2387auzizmjaisHuyqxu Bailey Other [employer] Other Start: 81-69-2963Yriuanpfq encounterLakrystle Albrecht [facility] ClydeStart: 66-85-7693Rbaniu outpatient new 20 minutesLauren Trena Urgent Care ClydeStart: 11-08-2022 End: 34-95-7210uxrxhzorxbNdbkjo Bailey Other [employer] Other Start: 11-08-2022 End: 74-18-5259Lwatqysp ReferredAPRN Lily Brush Work Phone: [facility]-Lab Main Crane Work Phone: Start: 03-31-2022 End: 57-55-1869Dukxxgkjbp hospital visit by physicianSta Ultrasound [address] UltrasoundComment on above:Abnormality of right breast on screening mammogramStart: 02-14-2022 End: 98-04-3769Lwnpizegdr hospital visit by physicianSmaggi Scr Mammo [address] MammographyComment on above:Encounter for screening mammogram for malignant neoplasm of breastStart: 01-17-2022 End: 12-40-5259Ystcgluxqh hospital visit by Mega Arita MD Work Phone: [phone] LaboratoryComment on above:Abnormal uterine bleeding (AUB)Start: 01-13-2022 End: 07-73-2802Qeyohqvsxa hospital visit by Gerard Patel [address] UltrasoundComment on above:Abnormal uterine bleeding (AUB)Start: 12-02-2021 End: 78-75-9753qzhjwwhbtaBYRHYVKettering Health Behavioral Medical Center Start: 12-02-2021 End: 78-49-1349Dcspfmkzn for gynecological examination (general) (routine) without abnormal findingsKettering Health Behavioral Medical Center Start: 12-02-2021 End: 51-14-5632Bxqhvkjmnd hospital visit by Mega Arita MD Work Phone: [phone] [place] LAB DOCTORStart: 06-13-2021 End: 73-77-5142winvsdihvzRWTUYC ALLENFacility:C5Hjcve: 11-09-2019 End: 12-07-9317Wdrzkvqqff hospital visit by Mega [facility] Start: 08-12-2019 End: 75-93-3697Bnwzbwprhl hospital visit by Mega [facility] Start: 07-27-2019 End: 90-27-6046Awygbvjphw hospital visit by [facility] [place] [facility] Procedures DateProcedureProcedure DetailPerforming ClinicianStart: 78-71-2161Xqlxvroomqrps metabolic Amanda Arita MD Work Phone: [phone]-art: 78-88-1979Oklme Amanda Arita MD Work Phone: Start: 47-36-3430Jlzr needle biopsy of breast using ultrasound guidanceMD Vida Arita Work Phone: Start: 15-36-8338Ujzzuofyrcnnoee of right breastMD Vida Arita Work Phone: Start: 28-71-7362Amqopdinynd of right breastMD Vida Arita Work Phone: Start: 88-88-2692Qz breast uni real time with image limitedJeannie Banda MD Work Phone: Start: 66-10-5365Yugwhfvspo mammography computer-aided detcj uniAmankojo Banda MD Work Phone: Start: 72-89-0483Uvmwmrhwh mammography bi 2-view breast inc cadAmankojo Banda MD Work Phone: Start: 19-81-4523Ymswypgwsxci follicle stimulating hormoneAmankojo Banda MD Work Phone: Start: 42-28-9756Vkrya panelJeannie Banda MD Work Phone: Start: 07-02-0384Xd transvaginalAmanda Lina Banda MD Work Phone: Start: 33-41-2105Milwmomoapb observation [Identifier] in Cervix by Cyto stainSta 1Start: 42-88-3381Imuwz count complete auto&auto difrntl wbcVida Arita Work Phone: Start: 73-78-0047Vvkkmpbijjo observation [Identifier] in Cervix by Cyto stainVida Arita MD Work Phone: Plan of Treatment DateCare ActivityDetailAuthorStart: 51-69-0338XWxE/Tdap/Td vaccine (2 - Td or Tdap)DTaP/Tdap/Td vaccine (2 - Td or Tdap)Bon [facility] CenterStart: 74-84-8188Yzwsg panelLipidsBon [facility] CenterStart: 99-93-0940Ggqfi panel LipidsBON [facility]ION HOSPITALStart: 02-84-9058Sruxekpsq for malignant neoplasm of cervixBON MARION HOSPITALStart: 59-93-7815Maxsdquqw for malignant neoplasm of breastBreast cancer screenBon [facility] CenterStart: 12-02-2024 Screening for malignant neoplasm of cervixPap smearBON [facility]ION [facility]ITAL Start: 01-52-7273Kbtxbgmwj vaccinationFlu vaccine (Season Ended)Bon [facility] CenterStart: 09-09-2024 End: 02-77-9548Iicjewi encounter kkfyjgeah45/30/2025 11:45 AM EDT Office Visit MHPX UNIVERSITY RELATIONS RECRUITER [facility] [address] [place] [address] Jeannie Banda MD [address] [place] [address] Annual examMHPX UNIVERSITY RELATIONS RECRUITER [facility]ie [facility] HospitaldavisctComment on above:Annual examStart: 08-09-2024 End: 85-86-7027Rycydql encounter cybhmyuln73/29/2025 6:15 PM EDT Appointment [facility] MRI [address] [place] [address] Horacio Looney MD [address] [place] [address] MEDIA *IAC/BRAIN W/WO* SCHED WPFirelands Regional [facility] MRIComment on above:MEDIA *IAC/BRAIN W/WO* SCHED WPTStart: 03-28-7403LIVMH-19 Vaccine ( season)COVID-19 Vaccine ( season)[facility] CenterStart: 06-55-4897KQETF-19 Vaccine ( season)COVID-19 Vaccine ( season)[facility] CenterStart: 33-82-3645Lmqlnyhma vaccinationFlu vaccine (#1)[facility] CenterStart: 43-20-5080SfkrmmlluThe Jewish Hospitaltart: 24-38-1976Codcnrku identified in Urine by Culture Urine CultureThe Jewish Hospitaltart: 04-15-2022 End: 51-26-1470Dlbprov encounter fanelnlnk79/03/2023 Procedure visit Obstetrics and Gynecology Jeannie Banda MD [address] [facility] [address] [place] [address] MHX UNIVERSITY RELATIONS RECRUITER [facility] Hospitaltart: 03-05-2022 End: 33-14-3733Btrslhe encounter epuggccmo80/23/2022 Office Visit Obstetrics and Gynecology Jeannie Banda MD [address] [facility] [address] [place] [address] MHX UNIVERSITY RELATIONS RECRUITER [facility] Start: 49-89-4144Xtpsp panelLipidsBallad Health: 12-12-2021 Influenza vaccinationFlu vaccine (#1)[facility]: 11-11-2021 Influenza vaccinationFlu vaccine (#1)[facility]: 12-13-[address]: 76-36-6229Kduvdywrm for malignant neoplasm of cervixBON [facility]: 42-69-6495Slmykuiqi for malignant neoplasm of cervixHPV (without or with Pap)[facility]: 52-82-9047Qngxvcrmn B vaccine (2 of 3 - 19+ 3-dose series)Hepatitis B vaccine (2 of 3 - 19+ 3-dose series)[facility]: 2001 DTaP/Tdap/Td vaccine (1 - Tdap)DTaP/Tdap/Td vaccine (1 - Tdap)[facility]: 13-56-1944Trmpnxgdg C screeningHepatitis C screenBON [facility]: 72-57-6671GMV screeningHIV [facility]: 75-80-4634Bhfpcvvxr vaccine (1 of 2 - 13+ 2-dose series)Varicella vaccine (1 of 2 - 13+ 2-dose series)[facility]: 17-38-4650Ipiqybvjbb Screen Depression ScreenRappahannock General Hospitalart: 65-03-1420Ovmpldxeo vaccine (1 of 2 - 2-dose childhood series)Varicella vaccine (1 of 2 - 2-dose childhood series)[facility] Hospitalart: 90-69-6327JZNMH-19 Vaccine (#1)COVID-19 Vaccine (#1)[facility] VCUWrite.my End: 93-18-8202Kllll-19 AmbulatoryCovid-19 Ambulatory Lab Routine Once for 1 Occurrences starting 08/12/2019 until 08/12/2019[place], [place]:Once for 1 Occurrences starting 08/12/2019 until 08/12/2019Covid-19 AmbulatoryCovid-19 Ambulatory Lab Routine 08/12/2019 5:09 PM [place] End: 43-04-3630YGP CytologyGYN Cytology Lab Routine Once for 1 Occurrences starting 12/02/2021 until 12/02/2021ON [facility] LOS ANGELESWrite.my [facility] Phone: Comment on above:Once for 1 Occurrences starting 12/02/2021 until 12/02/2021 End: 91-12-2221AK Brain WO and W contrast IVNorton Community Hospital [employer] [facility] For RehabilitationComment on above:1 Occurrences starting 08/05/2024 until 08/05/2024 End: 02-72-2547AN Internal auditory canal and Posterior fossa WO and W contrast IVCommunity Health SystemsEverpay [facility]'S Hospital For RehabilitationComment on above:1 Occurrences starting 08/05/2024 until 08/05/2024 End: 62-10-4142Hjwgalmi screen, urineBon [facility] Write.my [facility] Phone: Comment on above:1 Occurrences starting 07/29/2024 until 07/29/2024 End: 49-56-5220QAE with Reflex to FT4TSH with Reflex to FT4 Lab Routine Abnormal uterine bleeding (AUB) 1 Occurrences starting 01/17/2022 until 01/17/2022ON [facility] CENTERCardiac Guard Phone: Comment on above:1 Occurrences starting 01/17/2022 until 01/17/2022 Immunizations Immunization DateImmunizationNotesCare EtynuouxDlvfmipr02-30-4634hnpsflqyf, seasonal, injectableVida Arita MD Work Phone: [facility]12-02-2021COVID-19, [place] Vaccine, Vaccine UnspecifiedVida Arita MD Work Phone: [facility] CenterGhjfyj03-75-1901egmzwxzop virus vaccine, unspecified formulationVida Arita MD Work Phone: [phone]01-25-2021COVID-19, [place] Vaccine, Vaccine UnspecifiedVida Arita MD Work Phone: [phone]12-28-2020COVID-19, [place] Vaccine, Vaccine UnspecifiedVida Arita MD Work Phone: [phone] CenterQcicsq28-97-1418zuzydssqj virus vaccine, unspecified formulationVida Arita MD Work Phone: [phone] CenterKsvkto52-23-0253oddbairux virus vaccine, unspecified formulationVida Arita MD Work Phone: [phone] Work Phone: [phone]xilsxni virus vaccine, unspecified formulationVida Moss [facility] HOSPITALTNOQJQ52-29-4573cqmdqknmp virus vaccine, unspecified formulationVida Arita MD Work Phone: [facility] CenterPdztxg16-23-8262cipkcrdmc B vaccine, adult dosageVida Arita MD Work Phone: [facility] Payers DatePayer CategoryPayerPolicy [id number] Health [id number] Health InsuranceAEKRISTYN BRAGG - OPEN ACCESS (HMO) xxxxxxxxxx 2018-Present [phone] [address] [place] [address] xxxxxxxxxx [id number] Health InsuranceAETMONALISA BRAGG - OPEN ACCESS (HMO) [id number] 2018-Present [phone] [address] [place] [id number] 2.0.1.589057.3.57[id number] 2.0.1.088186.3.57[id number] 2.0.1.666276.3.57[id number] 2.0.1.350252.3.57[id number] 2.0.1.334747.3.57[id number] 2.0.1.130327.3.57[id number] 2.840.1.810706.3.57[id number] 2.0.1.575267.3.57[id number] 2.0.1.594193.3.579.2.50818-57-2000Xikrzoe Health [id number] [id number] 2.0.1.276272.3.579.2.531 Social History DateTypeDetailFacilityTobacco smoking status NHISUnknown if ever smokedWilson Street Hospital: 39-28-5504Vgk Assigned At BirthNot on fileWilson Street Hospital: 12-02-2021 End: 49-87-5326Wpeojkz smoking status NHISEx-smokerLAWRENCE GENERAL HOSPITALCardiac Guard Phone: start: 11-11-1998 End: 38-40-8829Hbuknay of tobacco useCurrent smokerCH[facility]DR[facility] VCUPlayScape Phone: start: 11-11-1998 End: 08-88-6170Fwahfsy of tobacco useCigarette SmokerCHILDREN'S HOS[facility] VCUPlayScape Phone: start: 12-02-2021 End: 65-77-5189Ptxgaod use and exposureSmokeless tobacco non-userLAWRENCE GENERAL HOSPITALCardiac Guard Phone: start: 12-02-2021 End: 45-64-3436Qmagqim intakeCurrent drinker of alcohol (finding)[facility] HOSPITALCitizenDish [facility]ARR[facility] HOSPITALGPal [facility] Work Phone: start: 45-98-1761Tpkuvqr SDOH Alcohol CommentsBon Sec[facility] St[facility] [employer] Phone: start: 05-27-2022 End: 01-06-8654Vak Assigned At [facility] Corporation of AmericaStart: 97-12-9113Eln Assigned At [facility] Hospitaltart: 05-27-2022 End: 59-02-4791Qalbdvwbhg smoked current (pack per day) - Reported0.3Bon [facility] CenterPaxeraStart: 92-76-2839Fcbibouah beverage intakeEx-drinker (finding)Community Health SystemsAledia(I/We) worried whether (my/our) food would run out before (I/we) got money to buy more.1Bon [facility] CenterVivonet [facility] Hospital For RehabilitationTobacco smoking status NHISUnknown if ever smokedGerman Hospital Work Phone: Start: 05-23-2012 End: 44-79-0752XknQnrkai (finding)[facility] Clinical Notes 11-08-2022 Note Date & SikjNvzdJritbeaw12-14-9252 Evaluation note* Encounter Date Diagnosis Assessment Notes Treatment Notes Treatment Clinical Notes Oct, Dysuria (ICD-10 - R30.0) Oct,cute lower UTI (ICD-10 - N39.0)UA with small leukocytes. Will treat with bactrim. As needed Pyridium Rx sent for symptomatic treatment. Push fluids. We will culture urine and notify of results in 2 to 4 days. Advised to follow-up with PCP if symptoms or not gradually improving over the next 3 to 4 days. Patient verbalized understanding of treatment plan. [employer] Other Evaluation note* Diagnosis Abnormal uterine bleeding (AUB) documented in this encounter [employer] Phone: evalovpkgy note* Diagnosis Abnormal uterine bleeding (AUB) documented in this encounter [employer] Phone: evalbwsxff note* Diagnosis Encounter for screening mammogram for malignant neoplasm of breast Other screening mammogram documented in this encounter [employer] Phone: evaljrczsr note* Diagnosis Abnormality of right breast on screening mammogram documented in this encounter [employer] 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, unspecified hearing status on contralateral side documented in this encounter [employer] general Narrative - Reported* Type Description Date Surgical History 2 -c-sections Hospitalization Historysee above [employer] Other Reason for visit Narrative* Imaging (Routine) - Closed SpecialtyDiagnoses / ProceduresReferred By ContactReferred To ContactRadiology Diagnoses 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, unspecified hearing status on contralateral side Procedures MRI IAC POSTERIOR FOSSA W WO Horacio Reed S, MD [address] [facility] [place] [address] Phone: tel: fax: Referral IDStatusReasonStart DateExpiration DateVisits RequestedVisits [id number]/54/ [facility] Advance Directives No Advanced Directives Records FoundDocuments on File TypeDate RecordedPatient RepresentativeExplanationAdvance Directives and Living WillPower of Packing Machine Inspector Advance Directive Response Recorded Date/ Time Advance Directives No November 10 11:18am Advance Directive Response Recorded Date/ Time Advance Directives No November 10 12:18pm Summary Purpose Family History No Family History Records Found Relationship Condition Age at Onset Recorded Date/T kisha father Heart disease Unknown Reason for Referral SpecialtyDiagnoses / ProceduresReferred By ContactReferred To ContactRadiology Diagnoses Abnormal uterine bleeding (AUB) Procedures US PELVIS COMPLETE Jeannie Banda MD [address] [facility] [address] [place] [address] Referral IDStatusAlinaTopeka DateExpiration DateVisits RequestedVisits [id number]/22/20228/870520YfysldzvnBvgxcjelt / Procedures Referred By ContactReferred To ContactRadiology Diagnoses Abnormal uterine bleeding (AUB) Procedures US NON OB TRANSVAGINAL Jeannie Banda MD [address] [facility] [address] [place] [address] Referral IDStatusReShoals Hospital DateExpiration DateVisits RequestedVisits [id number]/22/20228/647221CfmwobxphKucdjdnzi / Procedures Referred By ContactReferred To ContactRadiology Diagnoses Encounter for screening mammogram for malignant neoplasm of breast Procedures [facility] LATRICE DIGITAL SCREEN BILATERAL Jeannie Banda MD [address] [facility] [address] [place] [address] Referral IDStatusReasonStart DateExpiration DateVisits RequestedVisits [id number]/18/20232/18/202411 Chief Complaint and Reason for Visit Chief Complaint r92.8 Anemia D64.9 , CEE E61.1 Chief Complaint r92.8 Anemia D64.9 , CEE E61.1 rt breast massReason for VisitBreast mass, right Additional Source Comments INFORMATION SOURCE (unrecogn ized section and content) DATE CREATED AUTHOR 06/18/2021 [facility] DATE CREATED AUTHOR AUTHOR'S ORGANIZ ATION 11/11/2022 [facility] DATE CREATED AUTHOR AUTHOR'S ORGANIZ ATION 06/05/2024 [facility] DATE CREATED AUTHOR AUTHOR'S ORGANIZ ATION 10/05/2024 [facility] DATE CREATED AUTHOR AUTHOR'S ORGANIZ ATION 02/17/2025 [facility] Care Teams (unrecognized sec tion and content) Team MemberRelationshipSpecialtyStart DateEnd Date Vida Arita MD [address] [place] [address] PCP - GeneralFamily Medicine07/27/19Team MemberRelationshipSpecialtyStart DateEnd Date Vida Arita MD [address] [place] [address] PCP - GeneralFamily Medicine07/27/19Team MemberRelationshipSpecialtyStart DateEnd Date Vida Arita MD [address] [place] [address] PCP - GeneralFamily Medicine07/27/19Team MemberRelationshipSpecialtyStart DateEnd Date Vida Arita MD [address] [place], [place] [id number] PCP - GeneralFamily Medicine07/27/19Team MemberRelationshipSpecialtyStart DateEnd Date Vida Arita MD [address] [place], [place] [id number] PCP - GeneralFamily Medicine07/27/19 Team Status: Inactive Member Role Status Dates Lily Brush APRN Attending Provider Active Team Status: Active Member Role Status Jayson Arita MD Primary Care Provider Active Team Status: Inactive Member Role Status Jayson Arita MD Primary Care Provider Active Start: May 29, 2023 End: May 29Nora Rubalcava ProviderActiveStart: May 29, 2023 End: May 29, 2023 Team Status: Active Member Role Status Jayson Arita MD Primary Care Provide r, Attending Provider, Referring Provider Active Start: May 29, 2023 Team Status: Inactive Member Role Status Jayson Arita MD Primary Care Provider Active Start: July 10, 2023 End: July 09Nora Rubalcava ProviderActiveStart: July 10, 2023 End: July 10, 2023Team MemberRelationshipSpecialtyStart DateEnd Date Vida Arita MD [address] [place] [address] PCP - GeneralFamily Medicine07/27/19Team MemberRelationshipSpecialtyStart DateEnd Date Vida Arita MD [address] [place] [address] PCP - GeneralFamily Medicine07/27/19Team MemberRelationshipSpecialtyStart DateEnd Date Vida Arita MD [address] [place] [address] PCP - GeneralFamily Medicine07/27/19 Reason for Visit (unrecogniz ed section and content) SpecialtyDiagnoses / ProceduresReferred By ContactReferred To ContactRadiology Diagnoses Abnormal uterine bleeding (AUB) Procedures US NON OB TRANSVAGINAL Jeannie Banda MD [address] [facility] [address] [place] [address] Referral IDStatusReasonStart DateExpiration DateVisits RequestedVisits [id number]/22/20228/22/762721XastkhytgCocynlhoc / Procedures Referred By ContactReferred To ContactRadiology Diagnoses Encounter for screening mammogram for malignant neoplasm of breast Procedures MANUELA LATRICE DIGITAL SCREEN BILATERAL Jeannie Banda MD [facility] [facility] [address] [place] [address] Referral IDStatusReasonStart DateExpiration DateVisits RequestedVisits [id number]/18/20232/18/236050LmsmgopegUnwskvrzm / Procedures Referred By ContactReferred To ContactRadiology Diagnoses Abnormality of right breast on screening mammogram Procedures US BREAST LIMITED RIGHT US BREAST COMPLETE RIGHT Jeannie Banda MD [facility] [address] [facility] [address] [place] [address] Referral IDStatusReasonStart DateExpiration DateVisits RequestedVisits [id number]/4/202211/4/128138VsxtmegolLjqppendg / Procedures Referred By ContactReferred To ContactRadiology Diagnoses Abnormality of right breast on screening mammogram Procedures MANUELA LATRICE DIGITAL DIAGNOSTIC UNILATERAL RIGHT MANUELA DIGITAL DIAGNOSTIC W OR WO CAD RIGHT Jeannie Banda MD [facility] [address] [facility] [address] [place] [address] Referral IDStatusReasonStart DateExpiration DateVisits RequestedVisits [id number]/4/202211/4/202311 Goals (unrecognized section and content) Goals may [...] BE BASED ON THE PRIMARY CLINICAL RECORDS. [facility] [employer] [facility]. provides no warranty or guarantee of the accuracy or completeness of information in this document.
[2025-04-12 09:20] LABS: Hematocrit 40.3 % (36.0-48.0); Hemoglobin 12.9 g/dL (12.0-16.0); Immature Granulocytes Abs Auto 0.04 10^3/uL (0.00-0.03); Immature Granulocytes Pct Auto 0.6 % (0.0-0.5); Lymphocytes Absolute Auto 2.1 10^3/uL (1.2-3.8); Mean Corpuscular HGB Conc 32.0 g/dL (29.9-35.2); Mean Corpuscular Hemoglobin 29.8 pg (26.7-34.0); Mean Corpuscular Volume 93.1 fL (81.0-99.0); Platelet Count 262 10^3/uL (150-450); Red Blood Count 4.33 10^6/uL (4.20-5.40); White Blood Count 7.0 10^3/uL (4.0-11.0)
[2025-04-12 09:51] LABS: Alanine Aminotransferase 24 U/L (14-59); Albumin Globulin Ratio 1.1; Albumin Level 3.7 g/dL (3.4-5.0); Alkaline Phosphatase 77 U/L (46-116); Anion Gap 10.9; Aspartate Amino Transferase 12 U/L (15-37); Blood Urea Nitrogen 22.0 mg/dL (7.0-18.0); Calcium 8.8 mg/dL (8.5-10.1); Carbon Dioxide 29.5 mmol/L (21.0-32.0); Chloride 106 mmol/L (98-107); Cholesterol 216 mg/dL (<=200); Estimated GFR (African America >60 (>=60 mL/min/1.73m^2); Estimated GFR (Non-African Ame 58 (>=60 mL/min/1.73m^2); Free T3 2.34 pg/mL (2.18-3.98); Globulin 3.4 g/dL; Glucose 83 mg/dL (74-106); HDL Cholesterol 62 mg/dL (40-60); Potassium 4.4 mmol/L (3.5-5.1); Sodium 142 mmol/L (136-145); Thyroid Stimulating Hormone 1.555 uIU/mL (0.358-3.740); Total Protein 7.1 g/dL (6.4-8.2); Triglycerides 44 mg/dL (<=150); VLDL CHOLESTEROL 8.8 mg/dL
[2025-04-12 10:32] LABS: Iron 113.0 ug/dL (50.0-170.0); Percent Iron Saturation 28.4 %; Total Iron Binding Capacity 398.0 ug/dL (250.0-450.0)
[2025-04-12 11:21] LABS: Ferritin 34.0 ng/mL (8.0-252.0); Folate 8.10 ng/mL (8.60-58.90)
[2025-04-13 06:08] LABS: Sex Horm Binding Glob, Serum 55.9 nmol/L (24.6-122.0); Vitamin B12 680 pg/mL (232-1245)
[2025-04-13 08:08] LABS: C-Reactive Protein, Cardiac 0.47 mg/L (0.00-3.00); FSH 30.4 mIU/mL (.); Transferrin 344 mg/dL (192-364)
[2025-04-16 11:08] LABS: Reverse T3, Serum 12.9 ng/dL (9.2-24.1)
== END 2025-04-12 08:23 | disposition home or self-care (01) ==
PROVIDERS: PCP Family Medicine
DX: D50.9 Iron deficiency anemia, unspecified (principal); R53.83 Other fatigue; R61 Generalized hyperhidrosis; L65.9 Nonscarring hair loss, unspecified; R79.89 Other specified abnormal findings of blood chemistry; N95.1 Menopausal and female climacteric states; N92.6 Irregular menstruation, unspecified; Z83.2 Family history of diseases of the blood and blood-forming organs and certain disorders involving the immune mechanism; Z82.49 Family history of ischemic heart disease and other diseases of the circulatory system
CPT/HCPCS: 36415; 80053; 80061; 82172; 82525; 82607; 82627; 82670; 82728; 82746; 83001; 83002; 83090; 83525; 83540; 83550; 83695; 83735; 84144; 84270; 84402; 84403; 84439; 84443; 84466; 84481; 84482; 84630; 85025; 85652; 86038; 86140; 86376; 86800